=== PATIENT | male | born 1935 | race Caucasian/White ===

== ENCOUNTER 2017-12-12 03:41 | Inpatient (IN) | payer MEDICARE, BC ==
[~2017-12-12] VITALS: Ht 170.2 cm; Wt 86.0 kg
[2017-12-12] VITALS (24 sets, daily range): BP systolic 95–198; BP diastolic 38–114; PULSE 62–97; RESP 9–23; TEMP 97.8–99.3; O2SAT 96–100
[~2017-12-12 03:41] MED LIST: ASPI81 PO; AVOD0.5C PO; TAB-TAB PO; TAMS0.4C67 PO
[2017-12-12] MEDS ORDERED: LIPI80TA PO (03:54)
[2017-12-12] MEDS ORDERED: ASPI-516 CHEW (03:54)
[2017-12-12] MEDS ORDERED: COZA50TA PO (03:54)
[2017-12-12] MEDS ORDERED: SODIUM CHLORIDE 0.9% FLUSH 10 ML FLUSH IVF PRN (04:00)
[2017-12-12] MEDS ORDERED: ONDANSETRON ODT 4 MG TAB PO ONE (04:00)
[2017-12-12] MEDS ORDERED: ASPIRIN 81 MG CHEW TAB PO ONE (04:00)
[2017-12-12] MEDS ORDERED: NITROGLYCERIN 2% OINT 1 GM PACKET TOP ONE (04:00)
--- NOTE | 2017-12-12 04:07 | PD ---
HPI Chief Complaint: Chest Pain Time Seen by Provider: 03:43 Travel History International Travel<30 days: No Contact w/Intl Traveler<30days: No Traveled to known affect area: No History of Present Illness HPI The patient is a 82-year-old male who presents to the emergency department for chest pain. The patient states the alarm went off this morning, as he was planning to fly to [place] for a wed, when he developed chest pain the chest pain initially was substernal, radiated to the neck and jaw, and then radiated to the left aspect of the chest and left arm. The patient was diaphoretic according to the . The patient also felt like he had "indigestion" and was short of breath. The patient describes the pain as discomfort, has improved, but is still present over the substernal area. The patient did take a baby aspirin this morning with Advil prior to arrival. The patient does have a history of coronary artery disease with previous stent placement by his contractor general engineering, Dr. Emanuel. The patient does have a history of hypertension, hyperlipidemia, and coronary artery disease. He denies any history of tobacco use or diabetes. Symptoms are moderate. He denies any abdominal pain. The patient's primary physician is Dr. Kaleb Marion. [facility] Past Medical History Narrative Medical Hypertension, hyperlipidemia, coronary artery disease ?: Not Past Surgical History Narrative Surgical Stent placement, left inguinal herniorrhaphy Social History Tobacco Use: No Allergies-Medications (Allergen,Severity, Reaction): Coded Allergies: No Known Allergies (Verified Allergy, Unknown, 05/03/04) Reported Meds & Prescriptions Reported Meds & Active Scripts Active Reported Aspirin 81 Mg Chew 81 Mg CHEW DAILY Cozaar (Losartan Potassium) 50 Mg Tab 50 Mg PO DAILY Lipitor (Atorvastatin Calcium) 80 Mg Tab 80 Mg PO HS Review of Systems Except as stated in HPI: all other systems reviewed are Neg HENT: No: Lightheadedness Cardiovascular: Positive: Chest Pain or Discomfort, Diaphoresis Respiratory: Positive: Shortness of Breath Gastrointestinal: Positive: Nausea, No: Vomiting, Abdominal Pain Musculoskeletal: No: Edema Neurologic: No: Dizziness Physical Exam Narrative GENERAL: Awake, alert, pleasant 82-year-old male who appears his stated age and is in no acute respiratory distress. SKIN: Focused skin assessment warm/dry. Psoriatic plaques across the lower abdomen noted. HEAD: Atraumatic. Normocephalic. EYES: No injection or drainage. ENT: No nasal bleeding or discharge. Mucous membranes pink and moist. NECK: Trachea midline. No JVD. CARDIOVASCULAR: Regular rate and rhythm. No murmur appreciated. RESPIRATORY: No accessory muscle use. Clear to auscultation. Breath sounds equal bilaterally. GASTROINTESTINAL: Abdomen soft, non-tender, nondistended. No rebound tenderness. MUSCULOSKELETAL: No obvious deformities. No clubbing. No cyanosis. No edema. NEUROLOGICAL: Awake and alert. No obvious cranial nerve deficits. Motor grossly within normal limits. Normal speech. Nonfocal. PSYCHIATRIC: Appropriate mood and affect; insight and judgment normal. Data Data Last Documented VS Vital Signs Date Time Temp Pulse Resp B/P (MAP) Pulse Ox O2 Delivery O2 Flow Rate FiO2 12/12/17 04:26 66 18 176/96 (122) 100 Nasal Cannula 12/12/17 04:14 2.00 12/12/17 04:00 98.2 Orders Orders Electrocardiogram (12/12/17 03:59) Ckmb (Isoenzyme) Profile (12/12/17 03:59) Complete Blood Count With Diff (12/12/17 03:59) Comprehensive Metabolic Panel (12/12/17 03:59) Magnesium (Mg) (12/12/17 03:59) Prothrombin Time / Inr (Pt) (12/12/17 03:59) Act Partial Throm Time (Ptt) (12/12/17 03:59) Troponin I (12/12/17 03:59) Lipase (12/12/17 03:59) Ecg Monitoring (12/12/17 03:59) Bilateral Bp Monitoring (12/12/17 03:59) Iv Access Insert/Monitor (12/12/17 03:59) Oximetry (12/12/17 03:59) Oxygen Administration (12/12/17 03:59) Aspirin Chew (Aspirin Chew) (12/12/17 04:00) Nitroglycerin 2% Oint (Nitroglycerin 2% (12/12/17 04:00) Sodium Chloride 0.9% Flush (Ns Flush) (12/12/17 04:00) Ondansetron Odt (Zofran Odt) (12/12/17 04:00) Electrocardiogram (12/12/17 ) Chest, Single Ap (12/12/17 ) Heparin Inj (Heparin Inj) (12/12/17 05:00) Heparin Inj (Heparin Inj) (12/12/17 11:00) Heparin Inj (Heparin Inj) (12/12/17 11:00) Heparin-D5w 25,000 U/250 Ml (Heparin-D5w (12/12/17 05:00) Cbc No Diff, Includes Plts (12/15/17 06:00) Act Partial Throm Time (Ptt) (12/12/17 11:47) Occult Blood (Hemoccult) Stool (12/12/17 04:47) Place In Observation (12/12/17 ) Vital Signs (Adult) Q4H (12/12/17 04:46) Activity Oob With Assistance (12/12/17 04:46) Shop Manager / Telemetry .CONTINUOUS (12/12/17 04:46) Sodium Chloride 0.9% Flush (Ns Flush) (12/12/17 05:00) Sodium Chloride 0.9% Flush (Ns Flush) (12/12/17 09:00) Acetaminophen (Tylenol) (12/12/17 05:00) Ondansetron Inj (Zofran Inj) (12/12/17 05:00) Electrocardiogram (12/12/17 04:46) Electrocardiogram (12/12/17 10:46) Naloxone Inj (Narcan Inj) (12/12/17 05:00) Magnesium Hydroxide Liq (Milk Of Magnesi (12/12/17 05:00) Sennosides (Senokot) (12/12/17 05:00) Bisacodyl Supp (Dulcolax Supp) (12/12/17 05:00) Lactulose Liq (Lactulose Liq) (12/12/17 05:00) Labs Laboratory Tests Test 12/12/17 04:00 White Blood Count 9.8 TH/MM3 Red Blood Count 4.35 MIL/MM3 Hemoglobin 13.7 GM/DL Hematocrit 41.0 % Mean Corpuscular Volume 94.3 FL Mean Corpuscular Hemoglobin 31.6 PG Mean Corpuscular Hemoglobin Concent 33.5 % Red Cell Distribution Width 13.8 % Platelet Count 207 TH/MM3 Mean Platelet Volume 10.1 FL Neutrophils (%) (Auto) 46.7 % Lymphocytes (%) (Auto) 44.2 % Monocytes (%) (Auto) 6.2 % Eosinophils (%) (Auto) 2.5 % Basophils (%) (Auto) 0.4 % Neutrophils # (Auto) 4.7 TH/MM3 Lymphocytes # (Auto) 4.3 TH/MM3 Monocytes # (Auto) 0.6 TH/MM3 Eosinophils # (Auto) 0.2 TH/MM3 Basophils # (Auto) 0.0 TH/MM3 CBC Comment DIFF FINAL Differential Comment Prothrombin Time 11.1 SEC Prothromb Time International Ratio 1.1 RATIO Activated Partial Thromboplast Time 22.9 SEC Blood Urea Nitrogen 31 MG/DL Creatinine 1.50 MG/DL Random Glucose 150 MG/DL Total Protein 6.6 GM/DL Albumin 3.4 GM/DL Calcium Level 8.9 MG/DL Magnesium Level 2.1 MG/DL Alkaline Phosphatase 98 U/L Aspartate Amino Transf (AST/SGOT) 14 U/L Alanine Aminotransferase (ALT/SGPT) 20 U/L Total Bilirubin 0.4 MG/DL Sodium Level 142 MEQ/L Potassium Level 3.5 MEQ/L Chloride Level 110 MEQ/L Carbon Dioxide Level 23.4 MEQ/L Anion Gap 9 MEQ/L Estimat Glomerular Filtration Rate 45 ML/MIN Total Creatine Kinase 53 U/L Troponin I 0.04 NG/ML Lipase 189 U/L MDM Medical Decision Making Medical Screen Exam Complete: Yes Emergency Medical Condition: Yes Medical Record Reviewed: Yes Interpretation(s) EKG reveals sinus rhythm with frequent PVCs. Q waves noted in lead V1 and V2. Minimal ST elevation V2 and V3 that is less than 1 mm, does not meet criteria for STEMI. No visible reciprocal changes. EKG #2 reveals normal sinus rhythm with a rate of 62. Q-wave noted in lead V1 and V2. Minimal ST elevation V2 and V3, less than 1 mm, does not meet criteria for STEMI. No reciprocal changes noted. Laboratory Tests Test 12/12/17 04:00 White Blood Count 9.8 TH/MM3 Red Blood Count 4.35 MIL/MM3 Hemoglobin 13.7 GM/DL Hematocrit 41.0 % Mean Corpuscular Volume 94.3 FL Mean Corpuscular Hemoglobin 31.6 PG Mean Corpuscular Hemoglobin Concent 33.5 % Red Cell Distribution Width 13.8 % Platelet Count 207 TH/MM3 Mean Platelet Volume 10.1 FL Neutrophils (%) (Auto) 46.7 % Lymphocytes (%) (Auto) 44.2 % Monocytes (%) (Auto) 6.2 % Eosinophils (%) (Auto) 2.5 % Basophils (%) (Auto) 0.4 % Neutrophils # (Auto) 4.7 TH/MM3 Lymphocytes # (Auto) 4.3 TH/MM3 Monocytes # (Auto) 0.6 TH/MM3 Eosinophils # (Auto) 0.2 TH/MM3 Basophils # (Auto) 0.0 TH/MM3 CBC Comment DIFF FINAL Differential Comment Prothrombin Time 11.1 SEC Prothromb Time International Ratio 1.1 RATIO Activated Partial Thromboplast Time 22.9 SEC Blood Urea Nitrogen 31 MG/DL Creatinine 1.50 MG/DL Random Glucose 150 MG/DL Total Protein 6.6 GM/DL Albumin 3.4 GM/DL Calcium Level 8.9 MG/DL Magnesium Level 2.1 MG/DL Alkaline Phosphatase 98 U/L Aspartate Amino Transf (AST/SGOT) 14 U/L Alanine Aminotransferase (ALT/SGPT) 20 U/L Total Bilirubin 0.4 MG/DL Sodium Level 142 MEQ/L Potassium Level 3.5 MEQ/L Chloride Level 110 MEQ/L Carbon Dioxide Level 23.4 MEQ/L Anion Gap 9 MEQ/L Estimat Glomerular Filtration Rate 45 ML/MIN Total Creatine Kinase 53 U/L Troponin I 0.04 NG/ML Lipase 189 U/L Differential Diagnosis Differential diagnosis includes STEMI, acute coronary syndrome, aortic dissection, hypertensive urgency, hypertensive emergency, GERD, esophageal spasm. Narrative Course IV was established, labs are drawn and sent, and the patient was placed on cardiac telemetry monitoring and continuous pulse oximetry monitoring. EKG was ordered and interpreted. The patient was administered a baby aspirin, he also took 1 baby aspirin prior to arrival. Nitropaste was placed in the left chest wall. The patient's pain did return several minutes after arriving the emergency department, therefore, repeat EKG was ordered and interpreted. Chest x-ray was obtained. The patient was reevaluated at 4:30 AM, his chest pain had improved with nitro. The patient's initial troponin was 0.04. Creatinine was 1.5. The patient's contractor general engineering is Dr. Emanuel, therefore, a call was placed to his contractor general engineering. I discussed the patient with Dr. Emanuel who requested the patient be placed on heparin, n.p.o., and transferred to [facility] for possible cardiac catheterization later this afternoon. I discussed the plan of care with the patient who is comfortable with this plan of care. [facility] were p[facility] for admission. The patient continued to have some left-sided chest discomfort, therefore, was placed on a nitro drip at 5:30 AM. The patient continued to have pain despite nitro and morphine. Therefore, a third EKG was ordered at 6:08 AM. This EKG does reveal ST elevation greater than 1 mm in V3 and V4 where previous EKGs only had ST elevation in V3 of 1 mm. As the patient's pain was not improved with nitro and he started to have ST elevation in V4 I once again discussed the patient with his contractor general engineering. After discussion it was agreed a STEMI would be called and the patient would be sent emergently to [facility]. I discussed the findings with the patient. Critical Care Narrative Aggregate critical care time was 35 minutes. Time to perform other separately billable procedures was not included in the critical care time. My time did not include minutes spent treating any other patients simultaneously or on activities that did not directly contribute to the patient's treatment. The services I provided to this patient were to treat and/or prevent clinically significant deterioration that could result in: Ischemia, arrhythmia, STEMI, . I provided critical care services requiring my management, as noted below: Chart data review, documentation time, medication orders and management, vital sign assessments/reviewing monitor data, ordering and reviewing lab tests, ordering and interpreting/reviewing x-rays and diagnostic studies, care of the patient and discussion of the patient with the admitting physicians. Physician Communication Physician Communication [facility] were paged for admission. I discussed the patient with Dr. Lance who agrees with admission. Diagnosis Primary Impression: Unstable angina Additional Impressions: Chest pain Qualified Codes: R07.9 - Chest pain, unspecified ST elevation (STEMI) myocardial infarction Qualified Codes: I21.3 - ST elevation (STEMI) myocardial infarction of unspecified site Admitting Information Admitting Physician Requests: Admit Condition: Serious Richie Adan MD December 12, 2017 04:07
[2017-12-12 04:10] LABS: AUTOMATED NEUTROPHIL # 4.7 TH/MM3 (1.8-7.7); BASOPHIL % 0.4 % (0.0-2.0); EOSINOPHIL # 0.2 TH/MM3 (0-0.4); EOSINOPHIL % 2.5 % (0.0-4.0); HEMOGLOBIN 13.7 GM/DL (13.0-17.0); LYMPH % 44.2 % (9.0-44.0); LYMPHOCYTE # 4.3 TH/MM3 (1.0-4.8); MEAN CELL VOLUME 94.3 FL (80.0-100.0); MEAN CORPUSCULAR HEMOGLOBIN 31.6 PG (27.0-34.0); MEAN CORPUSCULAR HGB CONC 33.5 % (32.0-36.0); MEAN PLATELET VOLUME 10.1 FL (7.0-11.0); MONO % 6.2 % (0.0-8.0); MONOCYTE # 0.6 TH/MM3 (0-0.9); NEUT % 46.7 % (16.0-70.0); PLATELET COUNT 207 TH/MM3 (150-450); RED BLOOD COUNT 4.35 MIL/MM3 (4.50-5.90); RED CELL DISTRIBUTION WIDTH 13.8 % (11.6-17.2); WHITE BLOOD COUNT 9.8 TH/MM3 (4.0-11.0)
[2017-12-12 04:18] LABS: CHLORIDE 110 MEQ/L (98-107); SODIUM (NA) 142 MEQ/L (136-145)
[2017-12-12 04:21] LABS: ALBUMIN 3.4 GM/DL (3.4-5.0); BICARBONATE 23.4 MEQ/L (21.0-32.0); CALCIUM 8.9 MG/DL (8.5-10.1); GLUCOSE,RANDOM 150 MG/DL (74-106); INTERNATIONAL NORMALIZED RATIO 1.1 RATIO; MAGNESIUM 2.1 MG/DL (1.5-2.5); PROTHROMBIN TIME - PATIENT 11.1 SEC (9.8-11.6)
[2017-12-12 04:22] LABS: BLOOD UREA NITROGEN 31 MG/DL (7-18)
[2017-12-12 04:24] LABS: ALT (GPT) 20 U/L (12-78); AST (GOT) 14 U/L (15-37); GLOMERULAR FILTRATION RATE 45 ML/MIN (>89)
[2017-12-12 04:26] LABS: TOTAL BILIRUBIN ADULT 0.4 MG/DL (0.2-1.0); TOTAL PROTEIN 6.6 GM/DL (6.4-8.2)
[2017-12-12 04:27] LABS: ALKALINE PHOSPHATASE 98 U/L (45-117)
[2017-12-12 04:30] LABS: TROPONIN I 0.04 NG/ML (0.02-0.05)
[2017-12-12] MEDS ORDERED: IOHEXOL 350 MG/ML 50 ML BTL (for Cath Lab) OTHER ONE (04:49)
[2017-12-12] MEDS ORDERED: IOHEXOL 350 MG/ML 100 ML BTL (for Cath Lab) OTHER ONE (04:49)
[2017-12-12] MEDS ORDERED: SODIUM CHLORIDE 0.9% FLUSH 10 ML FLUSH IV FLUSH PRN ×3 (05:00→13:00)
[2017-12-12] MEDS ORDERED: ONDANSETRON ODT 4 MG TAB PO PRN (05:00)
[2017-12-12] MEDS ORDERED: ACETAMINOPHEN 325 MG TAB PO PRN ×2 (05:00→13:00)
[2017-12-12] MEDS ORDERED: NALOXONE HCL 0.4 MG/ML AMP IV PUSH PRN (05:00)
[2017-12-12] MEDS ORDERED: LACTULOSE SYRUP 20 GM/30 ML CUP PO PRN (05:00)
[2017-12-12] MEDS ORDERED: BISACODYL 10 MG SUPP RECTAL PRN (05:00)
[2017-12-12] MEDS ORDERED: SENNOSIDES 8.6 MG TAB PO PRN (05:00)
[2017-12-12] MEDS ORDERED: ONDANSETRON HCL 4 MG/2 ML VIAL IVP PRN (05:00)
[2017-12-12] MEDS ORDERED: HEPARIN-D5W 25,000 U/250 ML 250 ML IV PRN (05:00)
[2017-12-12] MEDS ORDERED: MAGNESIUM HYDROXIDE SUSP 30 ML CUP PO PRN (05:00)
[2017-12-12] MEDS ORDERED: HEPARIN SODIUM - IV 10,000 UNITS/10 ML VIAL IV ONE (05:00)
[2017-12-12] MEDS ORDERED: NITROGLYCERIN-D5W 50 MG/250 ML 250 ML IV PRN (05:30)
--- NOTE | 2017-12-12 05:36 | RADRPT ---
EXAM DATE/TIME: 12/12/2017 04:31 [facility] COMPARISON: No previous studies available for comparison. INDICATIONS : Substernal chest pain radiating to the left arm. MEDICAL HISTORY : Hypertension. Coronary artery disease. SURGICAL HISTORY : Coronary artery stent. ENCOUNTER: Initial ACUITY: 1 day PAIN SCORE: 4/10 LOCATION: chest substernal. FINDINGS: A single view of the chest demonstrates the lungs to be symmetrically aerated without evidence of mas s, infiltrate or effusion. The heart size is mildly prominent with no definite pulmonary edema. Mild atherosclerotic changes present in the aorta. Osseous structures are intact. CONCLUSION: Mild cardiomegaly. Roman Rodriguez MD on December 12, 2017 at 5:33 Board Certified Radiologist. This report was verified electronically.
[2017-12-12] MEDS ORDERED: MORPHINE SULFATE 2 MG/ML SYRINGE IV PUSH ONE (06:00)
[2017-12-12] MEDS ORDERED: MIDAZOLAM HCL 2 MG/2 ML VIAL ONE ×4 (06:35→13:39)
[2017-12-12] MEDS ORDERED: HEPARIN SODIUM - IV 10,000 UNITS/10 ML VIAL ONE ×2 (06:42→09:26)
[2017-12-12] MEDS ORDERED: HEPARIN-NS/PF INJ 500 ML ONE (08:16)
[2017-12-12] MEDS ORDERED: methylPREDNISolone SOD SUCC 125 MG/2 ML VIAL ONE ×2 (08:17→08:54)
[2017-12-12] MEDS ORDERED: ceFAZolin 2 GM PREMIX 50 ML ONE ×2 (08:17→08:54)
[2017-12-12] MEDS ORDERED: VANCOMYCIN HCL 1000 MG VIAL ONE ×2 (08:17→08:54)
[2017-12-12] MEDS ORDERED: HEPARIN SODIUM - SQ 10,000 UNITS/ML VIAL ONE ×3 (08:17→08:54)
[2017-12-12] MEDS ORDERED: CHLORHEXIDINE GLUCONATE 4% SOLN 120 ML BTL TOPICAL SCH (08:30)
[2017-12-12] MEDS ORDERED: PAPAVERINE INJ 60 MG, NITROGLYCERIN INJ 100 MCG, DILTIAZEM INJ 100 MG in SODIUM CHLORID... IRRIGATION SCH (08:30)
[2017-12-12] MEDS ORDERED: INSULIN REGULAR (IV INFUSION) 100 UNITS in SODIUM CHLORIDE 0.9% INJ 99 ML IV PRN ×2 (08:30→13:00)
[2017-12-12] MEDS ORDERED: METOPROLOL TARTRATE 25 MG TAB PO SCH (08:30)
[2017-12-12] MEDS ORDERED: CEFAZOLIN INJ 500 MG in SODIUM CHLORIDE 0.9% IRR BTL 500 ML IRRIGATION SCH (08:30)
[2017-12-12] MEDS ORDERED: DEXTROSE 50% IN WATER 50 ML VIAL(D50) IV PUSH PRN ×2 (08:30→13:00)
[2017-12-12] MEDS ORDERED: ceFAZolin 2 GM PREMIX 50 ML IV SCH (08:30)
--- NOTE | 2017-12-12 08:32 | PD.CONS ---
History of Present Illness Service CT Surgery Consult Requested By Dr. Emanuel Reason for Consult STEMI with refractory chest pain and acute systolic and diastolic heart failure Primary Care Physician Luis F Marion MD Diagnoses: (1) Combined systolic and diastolic congestive heart failure, NYHA class 4 (2) Chest pain (3) ST elevation (STEMI) myocardial infarction (4) Unstable angina History of Present Illness 82y/o male with known h/o CAD s/p stent placement to RCA in the past presents with chest pain since ~6AM. [place] the [place] when he experienced acute onset of chest pain radiating to the jaw. He went to the [facility] and was found to have ST elevation in V leads. A STEMI alert was called and he waas transferred to the [facility] for emergency left heart cath. This shows chronic LAD occlusion with collaterals from a diagonal with critical subtotal occlusion. His EF was 60% recently and is now ~20-25% with fairly global hypo/ akinesis. He continues to have chest pain and Dr. Emanuel could not safely cross lesion for PCI. Plan emergent CABG. Review of Systems ROS Limitations: Clinical Condition Constitutional: COMPLAINS OF: Diaphoretic episodes, DENIES: Fatigue, Fever, Weight gain, Weight loss, Chills, Dizziness, Change in appetite, Night Sweats Endocrine: DENIES: Heat/cold intolerance, Polydipsia, Polyuria, Polyphagia Eyes: DENIES: Blurred vision, Diplopia, Eye inflammation, Eye pain, Vision loss , Photosensitivity, Double Vision Ears, nose, mouth, throat: DENIES: Tinnitus, Hearing loss, Vertigo, Nasal discharge, Oral lesions, Throat pain, Hoarseness, Ear Pain, Running Nose, Epistaxis, Sinus Pain, Toothache, Odynophagia Respiratory: DENIES: Apneas, Cough, Snoring, Wheezing, Hemoptysis, Sputum production, Shortness of breath Cardiovascular: COMPLAINS OF: Chest pain, DENIES: Palpitations, Syncope, Dyspnea on Exertion, PND, Lower Extremity Edema, Orthopnea, Claudication Gastrointestinal: DENIES: Abdominal pain, Black stools, Bloody stools, Constipation, Diarrhea, Nausea, Vomiting, Difficulty Swallowing, Anorexia Musculoskeletal: DENIES: Joint pain, Muscle aches, Stiffness, Joint Swelling, Back pain, Neck pain Integumentary: DENIES: Abnormal pigmentation, Nail changes, Pruritus, Rash Hematologic/lymphatic: DENIES: Bruising, Lymphadenopathy Immunologic/allergic: DENIES: Eczema, Urticaria Neurologic: DENIES: Abnormal gait, Headache, Localized weakness, Paresthesias, Seizures, Speech Problems, Tremor, Poor Balance Psychiatric: DENIES: Anxiety, Confusion, Mood changes, Depression, Hallucinations, Agitation, Suicidal Ideation, Homicidal Ideation, Delusions Past Family Social History Allergies: Coded Allergies: No Known Allergies (Verified Allergy, Unknown, 05/03/04) Past Medical History Hypertension, hyperlipidemia, coronary artery disease Surgical Hx Stent placement, left inguinal herniorrhaphy Active Ordered Medications Current Medications Medications (Trade) Dose Ordered Sig/Poly Route Start Time Stop Time Status Last Admin (Heparin Inj) 5,000 units UNSCH PRN IV 12/12/17 11:00 (Heparin Inj) 2,500 units UNSCH PRN IV 12/12/17 11:00 Heparin Sodium/ Dextrose 250 ml @ 10 mls/hr TITRATE PRN IV 12/12/17 05:00 12/12/17 05:17 (NS Flush) 2 ml UNSCH PRN IV FLUSH 12/12/17 05:00 (NS Flush) 2 ml BID IV FLUSH 12/12/17 09:00 (Tylenol) 650 mg Q4H PRN PO 12/12/17 05:00 (Narcan Inj) 0.4 mg UNSCH PRN IV PUSH 12/12/17 05:00 (Milk Of Magnesia Liq) 30 ml Q12H PRN PO 12/12/17 05:00 (Senokot) 17.2 mg Q12H PRN PO 12/12/17 05:00 (Dulcolax Supp) 10 mg DAILY PRN RECTAL 12/12/17 05:00 (Lactulose Liq) 30 ml DAILY PRN PO 12/12/17 05:00 (Zofran Odt) 4 mg Q6H PRN PO 12/12/17 05:00 Nitroglycerin/ Dextrose 250 ml @ 1.5 mls/hr TITRATE PRN IV 12/12/17 05:30 12/12/17 05:43 Family History Not obtainable Social History Reportedly negative for tobacco or ETOH abuse Physical Exam Vital Signs Vital Signs Date Time Temp Pulse Resp B/P (MAP) Pulse Ox O2 Delivery O2 Flow Rate FiO2 12/12/17 06:35 70 18 169/89 (115) 100 12/12/17 06:30 70 20 166/94 (118) 100 Nasal Cannula 2.00 12/12/17 06:20 70 20 169/88 (115) 100 12/12/17 06:13 100 3.00 12/12/17 06:13 100 Nasal Cannula 3.00 12/12/17 05:54 65 20 184/92 (122) 12/12/17 05:46 69 18 173/85 (114) 100 Nasal Cannula 2.00 12/12/17 05:43 61 173/85 12/12/17 04:26 66 18 176/96 (122) 100 Nasal Cannula 12/12/17 04:14 62 184/96 (125) Nasal Cannula 2.00 12/12/17 04:00 98.2 70 20 178/96 (123) 100 Nasal Cannula 2.00 12/12/17 03:50 22 100 Nasal Cannula 2.00 12/12/17 03:50 100 Nasal Cannula 2.00 12/12/17 03:50 97 22 198/105 (136) 100 Room Air 183/114 (137) 12/12/17 03:45 98.2 67 22 198/105 (136) 99 Physical Exam GENERAL: This is a well-nourished, well-developed patient, in moderate distress. SKIN: No rashes, ecchymoses or lesions. Cool and dry. HEAD: Atraumatic. Normocephalic. No temporal or scalp tenderness. EYES: Pupils equal round and reactive. Extraocular motions intact. No scleral icterus. No injection or drainage. ENT: Nose without bleeding, purulent drainage or septal hematoma. Throat without erythema, tonsillar hypertrophy or exudate. Uvula midline. Airway patent. NECK: Trachea midline. No JVD or lymphadenopathy. Supple, nontender, no meningeal signs. CARDIOVASCULAR: Regular rate and rhythm without murmurs, gallops, or rubs. RESPIRATORY: Clear to auscultation. Breath sounds equal bilaterally. No wheezes , rales, or rhonchi. GASTROINTESTINAL: Abdomen soft, non-tender, nondistended. No hepato-splenomegaly , or palpable masses. No guarding. MUSCULOSKELETAL: Extremities without clubbing, cyanosis, or edema. No joint tenderness, effusion, or edema noted. No calf tenderness. Negative Homans sign bilaterally. NEUROLOGICAL: Awake and alert. Cranial nerves II through XII intact. Motor and sensory grossly within normal limits. Five out of 5 muscle strength in all muscle groups. Normal speech. Laboratory Laboratory Tests Test 12/12/17 04:00 White Blood Count 9.8 Red Blood Count 4.35 Hemoglobin 13.7 Hematocrit 41.0 Mean Corpuscular Volume 94.3 Mean Corpuscular Hemoglobin 31.6 Mean Corpuscular Hemoglobin Concent 33.5 Red Cell Distribution Width 13.8 Platelet Count 207 Mean Platelet Volume 10.1 Neutrophils (%) (Auto) 46.7 Lymphocytes (%) (Auto) 44.2 Monocytes (%) (Auto) 6.2 Eosinophils (%) (Auto) 2.5 Basophils (%) (Auto) 0.4 Neutrophils # (Auto) 4.7 Lymphocytes # (Auto) 4.3 Monocytes # (Auto) 0.6 Eosinophils # (Auto) 0.2 Basophils # (Auto) 0.0 CBC Comment DIFF FINAL Differential Comment Prothrombin Time 11.1 Prothromb Time International Ratio 1.1 Activated Partial Thromboplast Time 22.9 Blood Urea Nitrogen 31 Creatinine 1.50 Random Glucose 150 Total Protein 6.6 Albumin 3.4 Calcium Level 8.9 Magnesium Level 2.1 Alkaline Phosphatase 98 Aspartate Amino Transf (AST/SGOT) 14 Alanine Aminotransferase (ALT/SGPT) 20 Total Bilirubin 0.4 Sodium Level 142 Potassium Level 3.5 Chloride Level 110 Carbon Dioxide Level 23.4 Anion Gap 9 Estimat Glomerular Filtration Rate 45 Total Creatine Kinase 53 Troponin I 0.04 Lipase 189 Result Diagram: 12/12/17 0400 12/12/17 0400 Imaging Last Impressions Chest X-Ray 12/12/17 0000 Signed Impressions: Service Date/Time: Tuesday, December 12, 2017 04:31 - CONCLUSION: Mild cardiomegaly. Roman Rodriguez MD Course The patient will have an IABP placed by Dr. Emanuel in the [facility] and emergency CABG is planned. Assessment and Plan Problem List: (1) ST elevation (STEMI) myocardial infarction ICD Codes: I21.3 - ST elevation (STEMI) myocardial infarction of unspecified site Status: Acute (2) Unstable angina ICD Codes: I20.0 - Unstable angina Status: Acute (3) Combined systolic and diastolic congestive heart failure, NYHA class 4 ICD Codes: I50.40 - Unspecified combined systolic (congestive) and diastolic ( congestive) heart failure Assessment and Plan 82y/o male presents with STEMI and acute CHF. The lesion in the diagonal could not be crossed and the patient continues to have chest pain. Risk of CABG is as follow: Risk Model and Variables - STS Adult Cardiac Surgery Database Version 2.81 RISK SCORES About the STS Risk Calculator Procedure: CAB Only Risk of Mortality: 8.972% Morbidity or Mortality: 61.404% Long Length of Stay: 22.585% Short Length of Stay: 8.767% Permanent Stroke: 1.356% Prolonged Ventilation: 50.402% DSW Infection: 0.79% Renal Failure: 19.831% Reoperation: 17.585% Problem Qualifiers (1) Combined systolic and diastolic congestive heart failure, NYHA class 4: Qualified Codes: I50.41 - Acute combined systolic (congestive) and diastolic ( congestive) heart failure (2) Chest pain: Qualified Codes: R07.9 - Chest pain, unspecified (3) ST elevation (STEMI) myocardial infarction: Qualified Codes: I21.3 - ST elevation (STEMI) myocardial infarction of unspecified site Nina Melo MD December 12, 2017 08:32
[2017-12-12] MEDS ORDERED: PAPAVERINE INJ 60 MG, NITROGLYCERIN INJ 100 MCG, VERAPAMIL INJ 100 MG in SODIUM CHLORID... IRRIGATION SCH ×2 (08:45→09:00)
[2017-12-12] MEDS ORDERED: PILL SPLITTER OTHER PRN (08:45)
--- NOTE | 2017-12-12 08:51 | CATHPROC ---
[employer] HIS Report Study Information Study Number Admission Scheduled Start Study Start [id number] Dec 12 2017 4:48AM 12/12/2017 Dec 12 2017 6:34AM [facility] Cardiac Catheterization Admit Source Facility Department Emergency department [facility] - Curriculum Assistant Principal Physician and Clinical Staff Initial James Gomez Scheduling Administrator Melo Barajas RN Scheduling Administrator Isiah MURDOCK, Kingsley Recorder Antonella Cowart,RT(R) Scrub Iza Johnson,BRANDON TECH2 Procedures Performed Procedure Location (Site) Vessel Name Angiogram LV LV Ventricle Coronary Angiograms LCA Left Coronary Coronary Angiograms RCA Right Coronary IABP Fem Art (right) Femoral Art PTCA DIAG Ost Left Coronary PTCA ADD ON'S Wire insertion Fem Art (right) Femoral Art Equipment Time Head Strength And Conditioning Coach Description Size Mfg Part Number Used/Scraped WIRE, BALANCE MIDDLEWEIGHT [id number] 07:42 [employer] 190CM Used 190CM *[id number] TRANSDUCER, TRUWAVE [id number] 06:41 CHAIREZ MCLAUGHLIN * Used W/STOCKCOCK *[id number] BALLOON, 2.0 6MM FLEXTOME 07:54 BOSTON SCIENTIFIC 2.0 6MM [id number] Used CUTTING [id number] *[id number] *[id number] BALLOON, FR8 50CC SENSATION [id number] 08:19 MAQUET FR 8 50CC Used PLUS 01U *[id number] 06:41 MEDLINE IND[employer]RIES PACK, CCL CUSTOM * Used *[id number] 06:41 Knozen PACER PEN, SKIN DUAL W/ RULER * Used *[id number] 06:47 MEDTRONIC AR MOD DXTERITY CATHETER FR 5 [id number] Used [id number] 07:46 MEDTRONIC BALLOON, 2.0 X 12MM EUPHORA 12MM Used *[id number] 07:58 [employer] BALLOON, 2.0 X 6MM EUPHORA 6MM Used *[id number] 06:47 MEDTRONIC JL 4.0 DXTERITY CATHETER FR 5 Used *[id number] 07:39 Lo[employer]ronix MEDICAL 30 TAMIKA INDEFLATOR Used *[id number] 07:38 [employer] MEDICAL SHEATH, FR6.5 PRELUDE 11CM FR 6.5 038ACT Used *[id number] [id number] 06:41 [employer] MEDICAL WIRE, 3MMJ .035 180CM 180CM Used *[id number] PROBE COVER, STERILE [id number] 06:41 [employer] MEDICAL * Used ULTRASOUND W/ GEL *[id number] 06:41 NAMIC MANIFOLD, 4 PORT * Used *[id number] [id number] 06:48 NAMIC TUBING, HIGH PRESSURE 48" 48" Used *[id number] [id number] 06:41 NAMIC TUBING, HIGH PRESSURE 48" 48" Used *[id number] 06:41 NYCOMED OMNIPAQUE, 350 MG, 150ML 150ML [id number] Used 07:39 NYCOMED OMNIPAQUE, 350 MG, 150ML 150ML [id number] Used [id number] 06:41 [facility] BLANKET,WARM AIR CCL * Used *[id number] 06:41 [employer] MEDICAL SHEATH, FR5 TERUMO (10CM) FR 5 Used *[id number] Equipment Model, Serial, Lot Number and Expiration Data Description Model Number Serial Number Lot Number Expiration Date AR MOD DXTERITY CATHETER [id number] 09-04-2020 BALLOON, 2.0 X 12MM EUPHORA [id number] 06-24-2019 BALLOON, 2.0 6MM FLEXTOME [id number] 07-29-2019 CUTTING JL 4.0 DXTERITY CATHETER [id number] 04-17-2020 History: Allergies Allergy Reaction No Known Allergies History: Risk Factors Family History of Hypertension Dyslipidemia Previous OK Previous Heart Failure Premature CAD Yes Yes No No No Prior Valve Prior PCI Prior PCIDate Prior CABG Surgery No Yes 07/24/2010 No Cerebrovascular Peripheral Artery Chronic Lung On Dialysis Diabetes Disease Disease Disease No No No No No History: Symptoms/Diagnosis Selection Items Chest pain History: CV Disease Selection Items Known CAD History: Stress Tests Stress or Imaging Studies Performed No History: Other Disease Selection Items HTN History: Other Current Smoker No Labs Hgb (g/dl) Hct (%) RBC (MIL/MM3) WBC (l/cumm) Platelets (thousands) 11.60-17.00 35.00-51.00 4.00-5.90 4.00-11.00 150.00-450.00 13.7 41 4.3 9.8 207 Glucose (mg/dl) BUN (mg/dl) Creatinine (mg/dl) BUN:Creatinine (1:x) 74.00-106.00 7.00-18.00 0.50-1.30 10.00-20.00 150 31 1.5 20.7 Na (meq/l) K (meq/l) Cl (meq/l) CO2 (mmol/L) Ca (mg/dl) 136.00-145.00 3.50-5.10 98.00-107.00 21.00-32.00 8.50-10.10 142 3.5 110 23.4 8.9 PT (sec) PTT (sec) INR (PTT:PT) 9.80-11.60 24.30-30.10 0.90-1.10 11.1 22.9 1.1 Troponin I (ng/ml) CPK (u/l) CPK-MB (ng/ML) 0.02-0.05 26.00-308.00 0.50-3.60 0.04 53 Not Drawn Medication Medication Total Dose (Bolus/Oral) Medication Total Dosage/Unit 1% XYLOCAINE 20 mL FENTANYL 200 mcg HEPARIN 5000 units NTG (IC) 600 mcg VERSED 2.5 mg Medications (Bolus/Oral) Medication Time Given Dosage/Unit Administered By Reason VERSED 12/12/2017 7:17:20 AM 1 mg Karl, Melo 1 mg VERSED given in lab by Melo Baraajs RN via Peripheral IV. FENTANYL 12/12/2017 7:18:11 AM 50 mcg Karl, Melo 50 mcg FENTANYL given in lab by Melo Barajas RN via Peripheral IV. VERSED 12/12/2017 7:24:16 AM 1 mg Karl, Melo 1 mg VERSED given in lab by Melo Barajas RN via Peripheral IV. FENTANYL 12/12/2017 7:25:00 AM 25 mcg Karl, Melo 25 mcg FENTANYL given in lab by Melo Barajas RN via Peripheral IV. 1% XYLOCAINE 12/12/2017 7:29:45 AM 20 mL James Emanuel 20 mL 1% XYLOCAINE given in lab by James Emanuel in Right Groin via Subcutaneous. HEPARIN 12/12/2017 7:37:22 AM 5000 units Karl, Melo 5000 units HEPARIN given in lab by Melo Barajas RN in Right Antecubital via Peripheral IV. NTG (IC) 12/12/2017 7:42:29 AM 200 mcg Sayre, Iza 200 mcg NTG (IC) given in lab by Iza Johnson RCIS TECH2 via Intra-coronary. FENTANYL 12/12/2017 7:49:10 AM 25 mcg Melo Barajas 25 mcg FENTANYL given in lab by Melo Barajas RN via Peripheral IV. NTG (IC) 12/12/2017 7:57:39 AM 200 mcg Denise Johnsona 200 mcg NTG (IC) given in lab by Iza Johnson RCIS TECH2 via Intra-coronary. FENTANYL 12/12/2017 7:59:42 AM 50 mcg Melo Barajas 50 mcg FENTANYL given in lab by Melo Barajas RN via Peripheral IV. NTG (IC) 12/12/2017 8:03:25 AM 200 mcg Denise Johnsona 200 mcg NTG (IC) given in lab by Iza Johnson RCIS TECH2 via Intra-coronary. VERSED 12/12/2017 8:15:48 AM 0.5 mg Kingsley Yin RN 0.5 mg VERSED given in lab by Kinglsey Yin RN via Peripheral IV. FENTANYL 12/12/2017 8:16:05 AM 50 mcg Kingsley Yin RN 50 mcg FENTANYL given in lab by Kingsley Yin RN via Peripheral IV. Medication (Drip) Medication Time Given Dosage/Unit Concentration/Unit Diluent (ml) Solutio n HEPARIN DRIP 12/12/2017 7:04:31 AM 100 units/hr 28466 units 250 NaCl .9 Patient arrived on 100 units/hr HEPARIN DRIP in Left Antecubital via Peripheral IV. Pump/Drip Flow = 1 ml/hr using [place] .[place] [address] units in 250 ml. IV Bolus 12/12/2017 7:23:04 AM 500 mL (Bolus) NaCl .9 500 mL (Bolus) IV Bolus given in lab by Melo Barajas RN via Peripheral IV. Using NaCl .9. IV Solutions 12/12/2017 7:07:50 AM 0 mL (IV) 1000 NaCl .9 Patient arrived on IV Solutions in Right Antecubital via Peripheral IV. Pump/Drip Flow = 20 ml/hr usi ng NaCl .9. NITROGLYCERIN DRIP 12/12/2017 7:04:10 AM 10 mcg/min 50 mg 250 NaCl .9 Patient arrived on 10 mcg/min NITROGLYCERIN DRIP in Left Antecubital via Peripheral IV. Pump/Drip Bacilio w = 3 ml/hr using NaCl .9 with a concentration of 50 mg in 250 ml. Initial Case Assessment Cardiovascular HR Rhythm NIBP Chest Pain 76 reg 152/89 5 Edema Present Skin color Skin None Normal Warm Circulatory - Right Pulses Dorsalis Pedis Femoral 1 2 Scale (0,1,2,3,4,d) Circulatory - Left Pulses Dorsalis Pedis Femoral 1 1 Scale (0,1,2,3,4,d) Circulatory - Lower Extremities Color Lower Right Color Lower Left Normal Normal Neurological State Oriented to time-place- Alert Moves all extremities person Respiration - General Respiration Rate SpO2 (%) O2 (lpm) (B/min) 8 97 3 Final Case Assessment Cardiovascular HR Rhythm NIBP Chest Pain 65 reg 157/63 5 Edema Present Skin color Skin None Normal Warm Circulatory - Right Pulses Dorsalis Pedis Femoral 1 2 Scale (0,1,2,3,4,d) Circulatory - Left Pulses Dorsalis Pedis Femoral 1 2 Scale (0,1,2,3,4,d) Neurological State Oriented to time-place- Alert Moves all extremities person Respiration - General Respiration Rate SpO2 (%) O2 (lpm) (B/min) 17 98 3 Chronological Log Time Study Chronological Log 6:40:38 Emergency Room notified that Curriculum Assistant Principal is ready. 7:02:42 Patient arrived via evac 7:02:58 Patient Name, D.O.B, / Armband Verified By R.N. 7:02:59 Consent signed by the physician and the patient and verified by the Curriculum Assistant Principal staff. 7:03:00 Pre-op and post- op instructions given; patient acknowledges understanding of instructions. 7:03:01 Verbal Stimulation=2 Physical Stimulation=2 Airway=2 Respiration=2 TOTAL=8. (0=absent, 1=li mited, 2=present) 7:03:21 Patient has been NPO for More than 6Hrs. 7:03:24 Skin Breakdown-none 7:03:38 A # 20 IV was noted in the Antecubital (left). Grade = 0 Patient arrived on 10 mcg/min NITROGLYCERIN DRIP in Left Antecubital via Peripheral IV. Pump/Dr ip Flow = 3 ml/hr 7:04:10 using NaCl .9 with a concentration of 50 mg in 250 ml. Patient arrived on 100 units/hr HEPARIN DRIP in Left Antecubital via Peripheral IV. Pump/Drip F low = 1 ml/hr using 7:04:31 [place] [address] units in 250 ml. 7:05:10 heparin discontinued 7:07:45 A # 20 IV was noted in the Antecubital (right). Grade = 0 7:07:50 Patient arrived on IV Solutions in Right Antecubital via Peripheral IV. Pump/Drip Flow = 20 ml/hr using NaCl .9. 7:08:16 History and physical on the chart or being dictated. Assessment: Initial Case, HR=76 BPM, Rhythm=reg, ALVF=970/89 mmhg, Chest Pain=5, Edema=None, Col or=Normal, Skin = Warm Right Pulses: Manfred Ped=1, Femoral=2 Left Pulses: Manfred Ped=1, Femoral=1 7:08:18 Lower Right Extremities: Color=Normal Lower Left Extremities: Color=Normal Neurological: State=Alert, Ox3, LANE Respiration: Resp=8 B/min, SpO2=97 %, O2=3 lpm Vitals capture started with the following parameters, Patient=Adult, Interval=5 min, Initial Pre qfvvx=749 mmHg, 7:09:05 Deflation Rate=5 mmHg, Cuff placed on Left Arm 7:09:45 HR=57 bpm, VDGZ=844/89 mmhg, SpO2=99.0 %, Pain=5, Walter=10, Ramirez=2 7:11:27 Reference ECG taken 7:11:37 Bilateral groins prepped with 2% chlorhexidine, and draped after a 3 minute waiting time. 7:14:46 HR=57 bpm, WDPY=819/92 mmhg, SpO2=99.0 %, Resp=13 B/min, Pain=5, Walter=10, Ramirez=3 7:14:53 paged 7:14:59 MD responded 7:15:44 Pressure channel 1 zeroed. 7:17:20 1 mg VERSED given in lab by Melo Barajas, RN via Peripheral IV. 7:18:11 50 mcg FENTANYL given in lab by Melo Barajas RN via Peripheral IV. 7:19:45 HR=60 bpm, MYNN=693/92 mmhg, SpO2=98.0 %, Resp=12 B/min, Pain=5, Walter=10, Ramirez=2 7:21:02 MD arrived. 7:23:04 500 mL (Bolus) IV Bolus given in lab by Melo Barajas RN via Peripheral IV. Using NaCl .9. 7:24:16 1 mg VERSED given in lab by Melo Barajas RN via Peripheral IV. 7:24:50 HR=60 bpm, RBZI=028/82 mmhg, SpO2=96.0 %, Resp=5 B/min, Pain=5, Walter=10, Ramirez=2 7:25:00 25 mcg FENTANYL given in lab by Melo Barajas RN via Peripheral IV. 7:25:15 power injector loaded by rodolfo yin and verified by marion johnson Time Out. Correct patient, correct procedure, correct physician, labs, allergies, and equipment verified with laborer driver 7:28:29 team present. Fire risk assesment completed (see hard stop sheet for coding). Time Out Concu rred by MD and individual staff in procedure. o2 mask placed on pt 7:29:27 7:29:45 20 mL 1% XYLOCAINE given in lab by James Emanuel in Right Groin via Subcutaneous. 7:29:47 HR=61 bpm, NRYI=534/76 mmhg, SpO2=92.0 %, Resp=11 B/min, Pain=5, Walter=9, Ramirez=2 7:30:36 Access site was Right Femoral Artery with ultrasound device 7:30:56 A wire was inserted via Fem Art (right). 7:30:59 A SHEATH, FR5 TERUMO (10CM) FR 5 was advanced into the Fem Art (right) using the Percutaneou s technique. 7:31:18 Activated Clotting Time Drawn A JL 4.0 DXTERITY CATHETER FR 5 was advanced over a wire. OMNIPAQUE, 350 MG, 150ML 150ML was use d for 7:32:19 injections. 7:33:06 The LCA was injected and visualized at various angles. OMNIPAQUE, 350 MG, 150ML 150ML used. Recorded Pressure: Ao, HR=65, Condition=Condition 1 7:33:45 (Aorta) Ao 124/65/89 7:34:31 ACT (Normal Range 90-180) = 169 7:34:46 HR=63 bpm, QNAZ=606/80 mmhg, SpO2=99.0 %, Resp=15 B/min 7:35:27 Catheter was removed A AR MOD DXTERITY CATHETER FR 5 was advanced over a wire. OMNIPAQUE, 350 MG, 150ML 150ML was use d for 7:35:31 injections. 7:36:55 The RCA was injected and visualized at various angles. OMNIPAQUE, 350 MG, 150ML 150ML used. 7:37:22 5000 units HEPARIN given in lab by Melo Barajas RN in Right Antecubital via Peripheral IV. 7:38:02 Catheter was removed 7:38:33 OMNIPAQUE, 350 MG, 150ML 150ML and 30 TAMIKA INDEFLATOR added. A SHEATH, FR6.5 PRELUDE 11CM FR 6.5 was exchanged in the Fem Art (right). This was necessary in order to 7:38:45 accomodate a larger catheter. 7:39:47 HR=72 bpm, YHWF=952/84 mmhg, SpO2=99.0 %, Resp=16 B/min A XBLAD 3.5 GUIDE CATHETER FR 6 was advanced over a wire. OMNIPAQUE, 350 MG, 150ML 150ML was use d for 7:41:00 injections. 7:42:29 200 mcg NTG (IC) given in lab by Iza Johnson RCIS TECH2 via Intra-coronary. 7:44:18 Activated Clotting Time Drawn 7:44:28 A WIRE, BALANCE MIDDLEWEIGHT 190CM 190CM was inserted via Fem Art (right). 7:44:48 HR=73 bpm, KETL=048/84 mmhg, SpO2=98.0 %, Resp=15 B/min 7:45:02 Interventional wire has crossed the lesion A BALLOON, 2.0 X 12MM EUPHORA 12MM was inserted over WIRE, BALANCE MIDDLEWEIGHT 190CM 190CM via the 7:47:30 Fem Art (right). A BALLOON, 2.0 X 12MM EUPHORA 12MM over a WIRE, BALANCE MIDDLEWEIGHT 190CM 190CM in the DIAG Ost was 7:49:00 inflated using a 30 TAMIKA INDEFLATOR at 10 tamika for 12 sec. 7:49:10 25 mcg FENTANYL given in lab by Melo Barajas RN via Peripheral IV. 7:49:28 ACT (Normal Range 90-180) = 276 A BALLOON, 2.0 X 12MM EUPHORA 12MM over a WIRE, BALANCE MIDDLEWEIGHT 190CM 190CM in the DIAG Ost was 7:49:39 inflated using a 30 TAMIKA INDEFLATOR at 16 tamika for 30 sec. 7:49:51 HR=71 bpm, UAEQ=335/82 mmhg, ZkG4=428.0 %, Resp=13 B/min A BALLOON, 2.0 X 12MM EUPHORA 12MM over a WIRE, BALANCE MIDDLEWEIGHT 190CM 190CM in the DIAG Ost was 7:50:25 inflated using a 30 TAMIKA INDEFLATOR at 16 tamika for 30 sec. A BALLOON, 2.0 X 12MM EUPHORA 12MM over a WIRE, BALANCE MIDDLEWEIGHT 190CM 190CM in the DIAG Ost was 7:51:34 inflated using a 30 TAMIKA INDEFLATOR at 16 tamika for 30 sec. 7:52:17 Balloon Removed. Recorded Pressure: Ao, HR=66, Condition=Condition 1 7:52:37 (Aorta) Ao 162/81/113 A BALLOON, 2.0 6MM FLEXTOME CUTTING 2.0 6MM was inserted over WIRE, BALANCE MIDDLEWEIGHT 190CM 1 90CM 7:53:52 via the DIAG Ost. 7:55:35 HR=62 bpm, AWBA=340/89 mmhg, IkZ5=083.0 %, Resp=17 B/min, Pain=5, Walter=9, Ramirez=2 7:57:18 flextome Balloon Removed. 7:57:39 200 mcg NTG (IC) given in lab by Iza Johnson RCIS TECH2 via Intra-coronary. A BALLOON, 2.0 X 6MM EUPHORA 6MM was inserted over WIRE, BALANCE MIDDLEWEIGHT 190CM 190CM via th e 7:58:10 DIAG Ost. 7:59:42 50 mcg FENTANYL given in lab by Melo Barajas, RN via Peripheral IV. 7:59:51 HR=73 bpm, BHTN=547/91 mmhg, SpO2=99.0 %, Resp=9 B/min, Pain=5, Walter=9, Ramirez=3 8:02:56 Balloon Removed. 8:03:02 The LCA was injected and visualized at various angles. OMNIPAQUE, 350 MG, 150ML 150ML used. 8:03:25 200 mcg NTG (IC) given in lab by Iza Johnson RCIS TECH2 via Intra-coronary. 8:04:32 dr conway consulted 8:04:54 HR=66 bpm, LKHU=418/97 mmhg, UhV1=561.0 %, Resp=25 B/min, Pain=5, Walter=9, Ramirez=2 8:05:50 Wire removed 8:05:56 Catheter was removed A PIGTAIL ANG. INFINITI CATHETER FR 5 was advanced over a wire. OMNIPAQUE, 350 MG, 150ML 150ML w as used 8:06:03 for injections. Recorded Pressure: LV, HR=71, Condition=Condition 1 8:06:45 (Left Ventricle) LV 150/12/28 8:06:55 The LV was injected at 20 cc/sec for a total of 40. OMNIPAQUE, 350 MG, 150ML 150ML used. 8:07:22 dr conway arrived to view films with dr emanuel Recorded Pressure: LV, Ao, HR=69, Condition=Condition 1 8:08:14 (Left Ventricle) LV 155/15/33, (Aorta) Ao 154/78/110 8:08:32 Catheter was removed 8:09:49 HR=69 bpm, SJBI=145/96 mmhg, SpO2=99.0 %, Resp=18 B/min, Pain=5, Walter=10, Ramirez=2 8:14:52 HR=74 bpm, JTNY=306/89 mmhg, VgQ0=824.0 %, Resp=15 B/min, Pain=5, Walter=10, Ramirez=3 8:15:14 Sheath exchanged for intra-aortic balloon insertion. 8:15:48 0.5 mg VERSED given in lab by Kingsley Yin RN via Peripheral IV. 8:16:05 50 mcg FENTANYL given in lab by Kingsley Yin RN via Peripheral IV. An BALLOON, FR8 50CC SENSATION PLUS FR 8 50CC was advanced to the descending aorta. Proper plac ement was 8:18:45 confired under fluoroscopy and the balloon was sutured in place. Ratio = ~RATIO~. Augmented BP ~SYS~/~FAITH~ 8:19:54 HR=68 bpm, XOID=387/97 mmhg, QuQ4=981.0 %, Resp=12 B/min, Pain=5, Walter=10, Ramirez=2 8:24:01 Case End Assessment: Final Case, HR=65 BPM, Rhythm=reg, JUAG=845/63 mmhg, Chest Pain=5, Edema=None, [place] r=Normal, Skin = Warm Right Pulses: Manfred Ped=1, Femoral=2 8:24:03 Left Pulses: Manfred Ped=1, Femoral=2 Neurological: State=Alert, Ox3, LANE Respiration: Resp=17 B/min, SpO2=98 %, O2=3 lpm 8:25:01 HR=69 bpm, OTWE=437/63 mmhg, SpO2=99.0 %, Resp=12 B/min, Pain=5, Walter=10, Ramirez=2 8:26:49 Catheter(s) removed without difficulty 8:26:50 In the Fem Art (right) the sheath was sutured in place by Iza Johnson RCIS TECH2. balloon pump sheath 8:27:09 Sterile dressing applied to site 8:27:09 No case complications noted. 8:27:11 Cine recording checked. 8:30:43 HR=61 bpm, CVXL=535/72 mmhg, SpO2=97.0 %, Resp=14 B/min, Pain=5, Walter=10, Ramirez=2 8:34:44 HR=63 bpm, JGSU=451/99 mmhg, SpO2=96.0 %, Resp=15 B/min, Pain=0, Walter=10, Ramirez=2 8:40:00 HR=61 bpm, DDCX=359/57 mmhg, SpO2=97.0 %, Resp=23 B/min, Pain=5, Walter=10, Ramirez=2 8:45:47 [facility]vic[facility] notified of pts impending arrival End Study - Contrast Media Used In Study Contrast Total Opened (mL) Total Used (mL) Total Wasted (mL) Omnipaque 150 150 0 End Study - Maximum Contrast Load Max Contrast Load (mL) 276.7 End Study - Radiation Exposure Fluoro Time (minutes) 11.5 End Study - Patient Disposition Complications Transferred To No Critical Care Bed
[2017-12-12] MEDS ORDERED: SODIUM CHLORIDE 0.9% FLUSH 10 ML FLUSH IV FLUSH SCH ×2 (09:00)
--- NOTE | 2017-12-12 09:18 | MA ---
cc: Jaems Emanuel MD DATE: 12/12/2017 INDICATIONS: Myocardial infarction, coronary artery disease, history of RCA stenting, class IV angina. PROCEDURE PERFORMED: 1. Retrograde left heart catheterization with left ventriculography and selective coronary angiography. 2. Angioplasty of the first diagonal artery. 3. Moderate sedation. 4. Intraaortic balloon pump placement. ACCESS SITE: Right femoral artery. EQUIPMENT USED: A 5 Urdu pigtail catheter, JR4 and AR modified coronary artery catheters, XB 3.5 LAD guide, BMW wire, 2.0 x 12 mm balloon and 2.0 x 6 mm balloon for predilatation. AngioSculpt balloon could not be passed through the severely calcified lesion. MEDICATIONS: Versed IV, fentanyl IV, heparin IV, nitroglycerin IC. CONTRAST: Omnipaque 150 mL. COMPLICATIONS: None. ESTIMATED BLOOD LOSS: Less than 10 mL. METHOD OF HEMOSTASIS: Intraaortic balloon left in place. RESULTS: A. HEMODYNAMICS: Heart rate 65 beats per minute. Left end-diastolic pressure 18 mmHg. Left ventricle 155/18. Aorta 155/78/110. B. LEFT VENTRICULOGRAPHY: Ejection fraction 25% with severe anterior and apical hypokinesis, no mitral regurgitation. C. CORONARY ANGIOGRAPHY: The left main coronary artery is patent. The left anterior descending coronary artery is totally occluded in the proximal portion distally to the first diagonal branch. Distal vessel fills by a collateral from the first diagonal branch. D1 has 90% proximal stenosis with thrombus and heavy calcification. The left circumflex artery is patent. OM1 has 30% proximal stenosis. The right coronary artery is a dominant vessel which has a patent stent in the proximal portion. PLV patent. PD has 60 percent stenosis in the mid portion. Stenosis in the first diagonal artery was 15 mm long. Pre-AMA flow 2. Post-AMA flow 2 post-stenosis 80%. The proximal diagonal artery was heavily calcified and could not be dilated despite using multiple balloons 2.0 x 6 mm balloon could be removed with difficulty after the last inflation. There was a AMA 2 flow to the first diagonal artery at the end of the procedure. DIAGNOSES: 1. ST elevation myocardial infarction. 2. 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 3. Severe left ventricular dysfunction consistent with ischemic cardiomyopathy. 4. Attempted angioplasty of the first diagonal artery. 5. Intraaortic balloon pump placement. DISPOSITION: Mr. Perera was found to have a severe calcified stenosis in the first diagonal branch. The lesion could not be dilated despite multiple attempts due to severe calcification. Intraaortic balloon pump was placed and Dr. Melo was consulted for cardiothoracic surgery for emergent coronary bypass. MD RUTH Guadalupe/RALPH , 08:47 AM , 09:17 AM
[2017-12-12] MEDS ORDERED: ALBUMIN 25% INJ 50 ML IV ONE (09:25)
[2017-12-12] MEDS ORDERED: POTASSIUM CHLOR 40 MEQ PREMIX 200 ML ONE (09:25)
[2017-12-12] MEDS ORDERED: CARDIOPLEGIC IRR 2,000 ML ONE (09:25)
[2017-12-12] MEDS ORDERED: MANNITOL INJ 100 ML ONE (09:26)
[2017-12-12] MEDS ORDERED: CALCIUM CHLORIDE 10% SOLN 1 GRAM/10 ML SYR ONE (09:26)
[2017-12-12] MEDS ORDERED: SODIUM BICARBONATE 8.4% INJ 50 ML ONE (09:27)
[2017-12-12] MEDS ORDERED: HEPARIN SODIUM - IV 10,000 UNITS/10 ML VIAL IV PRN ×2 (11:00)
[2017-12-12] MEDS ORDERED: LACTATED RINGER'S 1000 ML INJ 500 ML IV PRN (12:56)
[2017-12-12] MEDS ORDERED: CALCIUM CHLORIDE 10% 1 GRAM/10 ML VIAL IV PUSH PRN (13:00)
[2017-12-12] MEDS ORDERED: POTASSIUM CHLOR 20 MEQ PREMIX 100 ML IV PRN ×3 (13:00)
[2017-12-12] MEDS ORDERED: hydrALAZINE HCL 20 MG/ML VIAL IV PUSH PRN (13:00)
[2017-12-12] MEDS ORDERED: METOPROLOL TARTRATE 5 MG/5 ML VIAL IV PUSH PRN (13:00)
[2017-12-12] MEDS ORDERED: RESP: ALBUTEROL 2.5 MG/IPRATROPIUM 0.5 MG NEB (PRN) NEB (13:00)
[2017-12-12] MEDS ORDERED: SODIUM BICARBONATE 8.4% SOLN 50 MEQ/50 ML VIAL IV PUSH PRN (13:00)
[2017-12-12] MEDS ORDERED: RESP: RACEPINEPHRINE 2.25% 0.5 ML NEB NEB PRN (13:00)
[2017-12-12] MEDS ORDERED: MAGNESIUM SULFATE INJ 2 GM in SODIUM CHLORIDE 0.9% INJ 100 ML IV PRN ×4 (13:00)
[2017-12-12] MEDS ORDERED: Post-op Orders (for Pharmacy) OTHER ONE (13:00)
[2017-12-12] MEDS ORDERED: POTASSIUM CHLORIDE 20 MEQ CONTROLLED RELEASE TAB PO PRN ×2 (13:00)
[2017-12-12] MEDS ORDERED: ACETAMINOPHEN 650 MG SUPP RECTAL PRN (13:00)
[2017-12-12] MEDS ORDERED: ALBUMIN 5% INJ 250 ML IV PRN (13:00)
[2017-12-12] MEDS ORDERED: CALCIUM CHLORIDE INJ 1 GM in SODIUM CHLORIDE 0.9% INJ 100 ML IV PRN (13:00)
--- NOTE | 2017-12-12 13:09 | PD.OP ---
cc: Nina Melo MD; James Emanuel MD Operative Report Date of Surgery: December 12, 2017 Preoperative Diagnosis: (1) ST elevation (STEMI) myocardial infarction (2) Unstable angina (3) Combined systolic and diastolic congestive heart failure, NYHA class 4 Postoperative Diagnosis: same Procedure: Emergency CABG x 2 COREY to LAD SVG to D1 EVH SUMMER Anesthesia: Dr. Day Surgeon: Nina Melo Quality Assurance Intern(s): Sita Rust, WOODY Operation and Findings: The risks, benefits, complications, treatment options, and expected outcomes were discussed with the patient. The possibilities of reaction to medication, pulmonary aspiration, perforation of viscus, bleeding, recurrent infection, the need for additional procedures, failure to diagnose a condition, and creating a complication requiring transfusion or operation were discussed with the patient. The patient concurred with the proposed plan, giving informed consent. The site of surgery properly noted/marked. The patient was taken to Operating Room, identified as Zeeshan Perera and the procedure verified as emergent CABG, EVH, SUMMER. An IABP was placed in the laboratory engineer augmenting 1:1. A Time Out was held and the above information confirmed. Standard monitoring lines and Anaya catheter were placed. General anesthesia was induced. The patient was prepped and draped in a sterile fashion. A median sternotomy was performed and electrocautery was used to obtain hemostasis. The left internal mammary artery was procured as a pedicle from the 7th rib to the 1st rib in the usual manner. Simultaneously left greater saphenous vein was procured from the left leg using a minimally invasive endoscopic technique. The vein was prepared for anastomosis and the leg wound was irrigated and closed in 2 layers. The pericardium was opened and a pericardial sling was created using interrupted 0 silk sutures. The patient was heparinized for cardiopulmonary bypass and the distal mammary pedicle was instrumented for anastomosis. The heart was instrumented for cardiopulmonary bypass in the usual manner. Antegrade blood cardioplegia was employed. The patient was placed on cardiopulmonary bypass. An aortic cross-clamp was applied and the heart was arrested using cold blood cardioplegia. Antegrade cardioplegia was administered after he each anastomosis. After adequate arrest,the 1st diagonal artery was opened with a [employer] blade and found to be a 1.5 millimeter good target. Saphenous vein was approximated to the D1 artery using a running 7 0 Prolene suture. The graft was measured for length and orientation and was suspended from the pericardium. The distal LAD was opened with a [employer] blade and found to be a 1.5 millimeter good target. The left internal mammary artery was approximated to the LAD using a running 7 0 Prolene suture. The pedicle was attached to the epicardium using interrupted 5 0 silk suture. The patient was systemically rewarmed and received a hotshot dose of warm blood cardioplegia. The aorta was vented and the proximal anastomosis to the D1 graft was accomplished using a running 5 0 Prolene suture after creating an aortotomy was a 5 millimeter punch. The cross -clamp was removed and all proximal and distal anastomoses were examined for hemostasis. The patient was weaned from cardiopulmonary bypass. Protamine was given. There was no adverse reaction. Decannulation was carried out without incident. Wound was checked for hemostasis which was obtained using electrocautery. A 36 [place] mediastinal and 32 [place] left pleural chest tubes were placed and secured to the skin with 0 silk suture. The sternum was closed with stainless steel wire. The fascia was closed with 1. PDS. The subcutaneous tissue was closed using a running 2-0 Vicryl suture. The skin was closed with 4- 0 Monocryl. Sterile dressings were placed. At the end of the operation, all sponge, instruments, and needle counts were correct. The patient was transferred to the CVICU in stable condition. Findings: Improved LV function after revascularization XC: 33 min CPB: 41 min Drains: mediastinal x 1 pleural x1 Complications: none Disposition: to CVICU in stable condition Nina Melo MD December 12, 2017 13:09
[2017-12-12] MEDS ORDERED: fentaNYL CITRATE 250 MCG/5 ML AMP ONE (13:38)
[2017-12-12] MEDS ORDERED: MORPHINE SULFATE 4 MG/ML INJ ONE (13:39)
[2017-12-12] MEDS: CLEVIDIPINE INJ 50 ML IV PRN (14:00)
[2017-12-12] MEDS: ACETAMINOPHEN 1000 MG/100 ML 100 ML IV SCH ×2 (14:23→20:46)
--- NOTE | 2017-12-12 14:43 | RADRPT ---
EXAM DATE: 12/12/2017 2:39 PM EDT AGE/SEX: 82 years / Male INDICATIONS: Post CABG. CLINICAL DATA: This is the patient's subsequent encounter. Patient reports that signs and symptoms h ave been present for 1 day and indicates a pain score of Nonresponsive. MEDICAL/SURGICAL HISTORY: Hypertension. Coronary artery disease. . Coronary artery stent. COMPARISON: No prior [place] exams available for comparison. FINDINGS: Patient is status post cardiothoracic surgery. The support devices appear to be in good po sition. There is no evidence of pneumothorax. There is some scattered infiltrates in both lung bases suggestive of atelectasis. No definite pneumothorax is demonstrated. The bony structures are grossly intact. CONCLUSION: Satisfactory postoperative view of the chest with bibasilar atelectasis. Electronically signed by: Luis Carrero MD 12/12/2017 2:42 PM EDT
[2017-12-12] MEDS ORDERED: DEXMEDETOMIDINE 200 MCG/50 ML Premix IV PRN (15:30)
--- NOTE | 2017-12-12 16:03 | EKG ---
Date Performed: 12/12/2017 Time Performed: 03:47:45 PTAGE: 82 years EKG: Sinus rhythm WITH FREQUENT VENTRICULAR PREMATURE COMPLEXES SEPTAL MYOCARDIAL INFARCTION ABNORMAL ECG INTERPRETATI ON BASED ON A DEFAULT AGE OF 40 YEARS baseline EKG NO PREVIOUS TRACING DOCTOR: Alia Naylor Interpretating Date/Time 12/12/2017 16:00:49
--- NOTE | 2017-12-12 16:05 | EKG ---
Date Performed: 12/12/2017 Time Performed: 04:11:08 PTAGE: 82 years EKG: Sinus rhythm WITH FIRST DEGREE AV BLOCK SEPTAL MYOCARDIAL INFARCTION ABNORMAL ECG when compared to prior EKG, pre viously present PVC's are no longer present,evidence of acute septal infarction. NO PREVIOUS TRACING DOCTOR: Alia Naylor Interpretating Date/Time 12/12/2017 16:02:56
--- NOTE | 2017-12-12 16:07 | EKG ---
Date Performed: 12/12/2017 Time Performed: 06:05:00 PTAGE: 82 years EKG: Sinus rhythm WITH FIRST DEGREE AV BLOCK SEPTAL MYOCARDIAL INFARCTION ACUTE OH changes of acute sepatal and anterior infarction continued Since the PREVIOUS TRACING , no significant change noted PREVIOUS TRACIN12/12/2017 04.11 DOCTOR: Alia Naylor Interpretating Date/Time 12/12/2017 16:03:27
--- NOTE | 2017-12-12 16:18 | HHI.HP ---
[facility] Service [place] [facility] Primary Care Physician Luis F Marion MD Admission Diagnosis Unstable angina, chest pain Diagnoses: Chief Complaint: chest pain Travel History International Travel<30 Days: No Contact w/Intl Traveler <30 Da: No Traveled to Known Affected Are: No History of Present Illness 82y/o male with known h/o CAD s/p stent placement to RCA in the past presents with chest pain since ~6AM. He was driving to the airport when he experienced acute onset of chest pain radiating to the jaw. He went to the [facility] ED and was found to have ST elevation in V leads. A STEMI alert was called and he was transferred to the main [facility] for emergency left heart cath. This shows chronic LAD occlusion with collaterals from a diagonal with critical subtotal occlusion. His EF was 60% recently and is now ~20-25% with fairly global hypo/ akinesis. He continues to have chest pain and Dr. Emanuel could not safely cross lesion for PCI. Cardiothoracic surgery was consulted for emergent CABG. Now post op - in ICU, Review of Systems ROS Limitations: Clinical Condition (post op intubated) Past Family Social History Past Medical History Hypertension, hyperlipidemia, coronary artery disease Past Surgical History hernia surgery Reported Medications Aspirin 81 Mg Chew 81 Mg CHEW DAILY Cozaar (Losartan Potassium) 50 Mg Tab 50 Mg PO DAILY Lipitor (Atorvastatin Calcium) 80 Mg Tab 80 Mg PO HS Allergies: Coded Allergies: No Known Allergies (Verified Allergy, Unknown, 05/03/04) Social History Reportedly negative for tobacco or ETOH abuse Physical Exam Vital Signs Vital Signs Date Time Temp Pulse Resp B/P (MAP) Pulse Ox O2 Delivery O2 Flow Rate FiO2 12/12/17 15:00 69 145/50 12/12/17 14:10 98 50 12/12/17 14:00 82/59 (89) 12/12/17 14:00 69 156/44 12/12/17 13:30 97.9 66 9 117/81 (93) 96 130/45 (73) 12/12/17 13:27 97 50 12/12/17 06:35 70 18 169/89 (115) 100 12/12/17 06:30 70 20 166/94 (118) 100 Nasal Cannula 2.00 12/12/17 06:20 70 20 169/88 (115) 100 12/12/17 06:13 100 3.00 12/12/17 06:13 100 Nasal Cannula 3.00 12/12/17 05:54 65 20 184/92 (122) 12/12/17 05:46 69 18 173/85 (114) 100 Nasal Cannula 2.00 12/12/17 05:43 61 173/85 12/12/17 04:26 66 18 176/96 (122) 100 Nasal Cannula 12/12/17 04:14 62 184/96 (125) Nasal Cannula 2.00 12/12/17 04:00 98.2 70 20 178/96 (123) 100 Nasal Cannula 2.00 12/12/17 03:50 22 100 Nasal Cannula 2.00 12/12/17 03:50 100 Nasal Cannula 2.00 12/12/17 03:50 97 22 198/105 (136) 100 Room Air 183/114 (137) 12/12/17 03:45 98.2 67 22 198/105 (136) 99 Physical Exam GENERAL:on ventilator, awakens and spoken to SKIN: No rashes, ecchymoses or lesions. Cool and dry. HEAD: Atraumatic. Normocephalic. No temporal or scalp tenderness. EYES: Pupils equal round and reactive. . No scleral icterus. No injection or drainage. ENT: Nose without bleeding, , endotracheal tube in place. NECK: Trachea midline. No JVD or lymphadenopathy. Supple, nontender, no meningeal signs. CARDIOVASCULAR: Regular rate and rhythm without murmurs, gallops, or rubs. RESPIRATORY: Clear to auscultation. Breath sounds equal bilaterally. No wheezes , rales, or rhonchi. chest tube in place- sternum GASTROINTESTINAL: Abdomen soft, non-tender, No guarding. soliz in place MUSCULOSKELETAL: Extremities without clubbing, cyanosis, or edema. Laboratory Laboratory Tests Test 12/12/17 04:00 White Blood Count 9.8 Red Blood Count 4.35 Hemoglobin 13.7 Hematocrit 41.0 Mean Corpuscular Volume 94.3 Mean Corpuscular Hemoglobin 31.6 Mean Corpuscular Hemoglobin Concent 33.5 Red Cell Distribution Width 13.8 Platelet Count 207 Mean Platelet Volume 10.1 Neutrophils (%) (Auto) 46.7 Lymphocytes (%) (Auto) 44.2 Monocytes (%) (Auto) 6.2 Eosinophils (%) (Auto) 2.5 Basophils (%) (Auto) 0.4 Neutrophils # (Auto) 4.7 Lymphocytes # (Auto) 4.3 Monocytes # (Auto) 0.6 Eosinophils # (Auto) 0.2 Basophils # (Auto) 0.0 CBC Comment DIFF FINAL Differential Comment Prothrombin Time 11.1 Prothromb Time International Ratio 1.1 Activated Partial Thromboplast Time 22.9 Blood Urea Nitrogen 31 Creatinine 1.50 Random Glucose 150 Total Protein 6.6 Albumin 3.4 Calcium Level 8.9 Magnesium Level 2.1 Alkaline Phosphatase 98 Aspartate Amino Transf (AST/SGOT) 14 Alanine Aminotransferase (ALT/SGPT) 20 Total Bilirubin 0.4 Sodium Level 142 Potassium Level 3.5 Chloride Level 110 Carbon Dioxide Level 23.4 Anion Gap 9 Estimat Glomerular Filtration Rate 45 Total Creatine Kinase 53 Troponin I 0.04 Lipase 189 Result Diagram: 12/12/17 0400 12/12/17 0400 Imaging Last Impressions Chest X-Ray 12/12/17 0000 Signed Impressions: CONCLUSION: Satisfactory postoperative view of the chest with bibasilar atelect asis. Caprini VTE Risk Assessment Caprini VTE Risk Assessment: Mod/High Risk (score >= 2) VTE Pharm Contraindication: may undergo procedure Caprini Risk Assessment Model Point Value = 1 Point Value = 2 Point Value = 3 Point Value = 5 Age 41-60 Minor surgery BMI > 25 kg/m2 Swollen legs Varicose veins or History of unexplained or recurrent spontaneous Oral contraceptives or hormone replacement Sepsis (< 1 month) Serious lung disease, including pneumonia (< 1 month) Abnormal pulmonary function Acute myocardial infarction Congestive heart failure (< 1 month) History of inflammatory bowel disease Medical patient at bed rest Age 61-74 Arthroscopic surgery Major open surgery (> 45 min) Laparoscopic surgery (> 45 min) Malignancy Confined to bed (> 72 hours) Immobilizing plaster cast Central venous access Age >= 75 History of VTE Family history of VTE Factor V Leiden Prothrombin [id number] Lupus anticoagulant Anticardiolipin antibodies Elevated serum homocysteine Heparin-induced thrombocytopenia Other congenital or acquired thrombophilia Stroke (< 1 month) Elective arthroplasty Hip, pelvis, or leg fracture Acute spinal cord injury (< 1 month) Prophylaxis Regimen Total Risk Factor Score Risk Level Prophylaxis Regimen 0-1 Low Early ambulation 2 Moderate Order ONE of the following: *Sequential Compression Device (SCD) *Heparin 5000 units SQ BID 3-4 Higher Order ONE of the following medications: *Heparin 5000 units SQ TID *Enoxaparin/Lovenox 40 mg SQ daily (WT < 150 kg, CrCl > 30 mL/min) *Enoxaparin/Lovenox 30 mg SQ daily (WT < 150 kg, CrCl > 10-29 mL/min) *Enoxaparin/Lovenox 30 mg SQ BID (WT < 150 kg, CrCl > 30 mL/min) AND/OR *Sequential Compression Device (SCD) 5 or more Highest Order ONE of the following medications: *Heparin 5000 units SQ TID (Preferred with Epidurals) *Enoxaparin/Lovenox 40 mg SQ daily (WT < 150 kg, CrCl > 30 mL/min) *Enoxaparin/Lovenox 30 mg SQ daily (WT < 150 kg, CrCl > 10-29 mL/min) *Enoxaparin/Lovenox 30 mg SQ BID (WT < 150 kg, CrCl > 30 mL/min) AND *Sequential Compression Device (SCD) Assessment and Plan Assessment and Plan 82 years old male ACS S/P cath with severe vessel disease, required IABP- on cath S/P emergent CABG #0 - cardiology and Cardiothoracic surgery ff -continue meds KI- likely chronic - ff BMP Physician Certification 2 Midnight Certification Type: Admission for Inpatient Services Order for Inpatient Services The services are ordered in accordance with Medicare regulations or non- Medicare payer requirements, as applicable. In the case of services not specified as inpatient-only, they are appropriately provided as inpatient services in accordance with the 2-midnight benchmark. Estimated LOS (days): 2 days is the estimated time the patient will need to remain in the hospital, assuming treatment plan goals are met and no additional complications. Post-Hospital Plan: Not yet determined Dash Palacios MD December 12, 2017 16:18
--- NOTE | 2017-12-12 16:20 | HHI.FF ---
Face to Face Verification Diagnosis: (1) Hyperlipemia (2) BPH (benign prostatic hyperplasia) (3) Combined systolic and diastolic congestive heart failure, NYHA class 4 (4) Chest pain (5) Unstable angina (6) ST elevation (STEMI) myocardial infarction (7) S/P CABG x 2 Home Health Nursing Order: Signs/symptoms of disease process Medication education-adverse effect Wound care and dressing changes Nursing assessment with vital signs Instructions: Heart and Vascular Surgery patients *Special attention to sternal dressing Mandatory frequency Assess and evaluation, 4 days in a row The next week 3X week 2 times a week for 4 weeks 1 time a week for 5 weeks Schedule Heart and Vascular patients for full 60 day certification period Initial visit Review Open Heart Surgery Discharge Instructions (Sternal precautions, Activity, Elastic hose, Incision care, Driving, Incentive spirometry, Smoking, [place], Work and other) Need Betadine to paint incision Medication reconciliation Importance of follow up care/ check on appointments Make calendar record temperature daily When to call [facility] at Home nurse, review instructions, phone list Incentive Spirometry, demonstration Visit 1- Begin discharge instruction for patient family and/ or caregiver using teach back method- Signs and symptoms of infection Disease characteristics Medicines and side effects Foods and nutrition/ appetite Infection control/ hand washing/ hygiene Visit 2- Continue teaching Discharge instructions- include additional information on smoking cessation , sternal dressing (sternal vac) Visit 3- Continue teaching- Cough and deep breathing, incision monitoring. Choose my plate Visit 4- Continue teaching- Discuss limitations Discuss how they are feeling Discuss progress toward goals Remaining visits- continue teaching and monitoring For any questions please call : Monday 8am-5pm Heart & Vascular Surgery Office ( Dr. May & Dr. Melo), After Hours / Nights (5pm -8am) Weekends and Holidays Please call [facility] ([facility]) Charge Nurse PREVENA Single Use Negative Wound Therapy System Caregiver Instruction Sheet 1. A Prevena dressing system was applied to the chest incision during surgery , to promote wound healing. It works via a suction device (negative pressure wound therapy) to remove low to moderate levels of exudate (drainage) and infectious materials. We recommend that the device stay in place for up to seven days, from day of surgery. 2. Day of Surgery__12/12/17 Day of Removal __12/19/17 3. The dressing should only be removed by a health child care aide. Please arrange removal of device to coincide with Home Health visit and or with Nursing staff at Rehab 4. If skin reddening or irritation of skin occurs, or excessive drainage, please notify the Cardiovascular Surgeons office at [phone]. 5. Light showering is permissible; however the pump should be disconnected and placed in safe location, where it will not get wet. The dressing should not be exposed to direct spray or submerged in water. No bath tub / shower only. Ensure the end of the tubing attached to the dressing is facing down so that water does not enter the top of the tube. 6. To remove Prevena dressing: press purple button to turn off device / remove the suction. Then disconnect the tubing from the pump. The fixation strips should be stretched away from the skin and the dressing lifted at one corner and peeled back until it has been fully removed. 7. After removal, it is ok to shower daily using liquid dial soap and clean wash cloth, rinse and pat dry, and leave incision open to air dry. For any concerns regarding Prevena dressing, and or wounds, please contact Peace Becker, patient navigator at [phone] or notify the Cardiovascular Surgeons office at [phone]. Incentive spirometry Q1 hr x 10, while awake, also use acapella device hourly whole awake Sternal Breast Bone Precautions: NO pushing or pulling, ( pt must use sternal pillow to support chest with all activities and with coughing ( takes up to 3 months breast bone to heal ) All females to wear sternal bra , launder as needed Daily incision care: ok to shower daily, no tub bath. Wash all incisions with liquid dial soap, clean wash cloth to each site, rinse and pat dry. Observe for any signs of infection, such as drainage which is dark yellow, shah, green or foul smelling. Immediately report to the surgeon any drainage from the chest incision, or legs, and for any abnormal drainage from the chest tube sites. Notify surgeon if any temp >101.5 degrees F. When specialty dressing removed/ or if you do not have one, continue to shower daily as above, then rinse and pat incision dry and paint with betadine daily x 5 days. Allow steri strips to fall off if you have any. Avoid lotions, creams, salves, oils, etc. for the first month Please see attached forms for additional instructions regarding post Open Heart specialty wound vacuum dressings. ESTEFANY or Prevena , Dressing to be removed by Nursing staff on __12/19/[address] Melo patients , please obtain CBC, BMP, PA & Lat CXR in 2 weeks, results to Dr. Melo ( prescription will be given) ( ) (Tele: [phone]) , F/U appointment: as per DC instructions: PCP in 2 weeks, CV surgeon 2 weeks, [place] [facility] 3-4 weeks For any questions regarding incisions/ dressing / meds / post op care or above Symptoms, Monday 8am-5pm Heart & Vascular Surgery Office ( Dr. May & Dr. Melo), After Hours / Nights (5pm -8am) Weekends and Holidays Please call [facility] ([facility]) Charge Nurse I have seen patient Zeeshan Perera on 12/12/17. My clinical findings support the need for the requested home health care services because: Patient has SOB Deconditioned w/ increased weakness I certify that my clinical findings support that this patient is homebound because: Post-op weakness Samira La December 12, 2017 16:20
[2017-12-12] MEDS: RESP: ALBUTEROL 2.5 MG/IPRATROPIUM 0.5 MG NEB (SCH) NEB ×2 (17:20→19:44)
[2017-12-12 17:35] LABS: TROPONIN I GREATER THAN 40.00 NG/ML (0.02-0.05)
[2017-12-12 17:49] LABS: HEMOGLOBIN A1C 5.6 % (4.3-6.0)
[2017-12-12] MEDS ORDERED: AMIODARONE HCL 150 MG/3 ML VIAL ONE (19:15)
[2017-12-12] MEDS ORDERED: GLUCAGON 1 MG/ML VIAL OTHER PRN (19:45)
[2017-12-12] MEDS ORDERED: AMIODARONE INJ 450 MG in SODIUM CHLOR 0.9% (EXCEL) INJ 241 ML IV PRN (20:00)
[2017-12-12] MEDS ORDERED: AMIODARONE 150 MG/D5W 97 ML BOLUS 10 MINUTES IV ONE ×2 (20:00)
[2017-12-12] MEDS ORDERED: AMIODARONE INJ 450 MG in D5W (EXCEL BAG) INJ 241 ML IV PRN (20:00)
[2017-12-12] MEDS: SODIUM CHLORIDE 0.9% FLUSH 10 ML FLUSH IV FLUSH SCH (20:37)
--- NOTE | 2017-12-12 21:21 | MB ---
cc: James Emanuel MD DATE: 12/12/2017 HISTORY OF PRESENT ILLNESS: Mr. Perera is an 82-year-old white male with history of coronary artery disease, right coronary artery stenting and [id number] disease in the left coronary system. Earlier this morning, he got up and was getting ready to go to the airport to fly to a family wedding, when he developed substernal chest discomfort radiating to his neck and jaw and also left arm. He was also diaphoretic, nauseated and short of breath. His brought him to the [facility] and he was diagnosed with acute coronary syndrome. His pain progressively increased and he developed ST elevations in the anterior leads, STEMI was called and he was transferred for emergent cardiac catheterization and coronary intervention to the [facility]. PAST MEDICAL HISTORY: Positive for coronary artery disease, right coronary stenting, hypertension, dyslipidemia, preserved left ventricular systolic function, history of inguinal hernia surgery. MEDICATIONS: Include: 1. Lipitor. 2. Cozaar. 3. Aspirin. ALLERGIES: NONE. SOCIAL HISTORY: The patient does not smoke. He drinks alcohol. FAMILY HISTORY: Positive for heart disease. REVIEW OF SYSTEMS: Otherwise negative. PHYSICAL EXAMINATION: VITAL SIGNS: Blood pressure 169/89, pulse 70 and regular. HEENT: Negative. NECK: 2+ carotid upstrokes, no bruits. LUNGS: Clear. HEART: Regular with no murmur, gallop or rub. ABDOMEN: Soft, no bruits. EXTREMITIES: Without edema, 2+ distal pulses. NEUROLOGIC: Grossly nonfocal. The patient is in moderate distress secondary to chest pain. CARDIOLOGY: EKG was reviewed and showed normal sinus rhythm, anterior ST elevations. Subsequent EKG shows anterior ST elevations and frequent PVCs. LABORATORY DATA: Hemoglobin 13.7. Potassium 3.5, creatinine 1.50. AST and ALT normal. Troponin 0.04. DIAGNOSES: 1. Acute anterior wall myocardial infarction. 2. Coronary artery disease, history of right coronary stenting and [id number] disease in the left coronary system. 3. Hypertension. 4. Dyslipidemia. DISPOSITION: Mr. Perera will undergo emergent cardiac catheterization and coronary intervention. He understands the risks and benefits, and wishes to proceed. MD RUTH Guadalupe/JUAN/felisa , 06:17 PM , 07:40 PM MTDKim
[2017-12-12] MEDS: SODIUM BICARBONATE 8.4% SOLN 50 MEQ/50 ML VIAL IV PUSH PRN (22:42)
[2017-12-13] VITALS (16 sets, daily range): BP systolic 98–158; BP diastolic 39–81; PULSE 66–97; RESP 12–20; TEMP 98.1–99.6; O2SAT 94–98
[2017-12-13] MEDS: ACETAMINOPHEN 1000 MG/100 ML 100 ML IV SCH ×2 (01:00→06:14)
[2017-12-13] MEDS: CLEVIDIPINE INJ 50 ML IV PRN (01:24)
[2017-12-13] MEDS: SODIUM BICARBONATE 8.4% SOLN 50 MEQ/50 ML VIAL IV PUSH PRN (01:42)
[2017-12-13] MEDS: ONDANSETRON ODT 4 MG TAB PO PRN ×2 (03:13→07:58)
[2017-12-13] MEDS: RESP: ALBUTEROL 2.5 MG/IPRATROPIUM 0.5 MG NEB (SCH) NEB ×3 (04:24→12:12)
--- NOTE | 2017-12-13 04:44 | RADRPT ---
EXAM DATE: 12/13/2017 4:40 AM EDT AGE/SEX: 82 years / Male INDICATIONS: Short of breath. Status post extubation. CLINICAL DATA: This is the patient's subsequent encounter. Patient reports that signs and symptoms h ave been present for 1 week and indicates a pain score of 0/10. MEDICAL/SURGICAL HISTORY: . Hypertension. Coronary artery disease. . Coronary artery stent. [place]PARISON: [facility] [place], 12/12[place]. . FINDINGS: A single AP semierect view of the chest was obtained. Left-sided chest tube remains in place. No conf luent infiltrates are present. The left costophrenic angle remains blunted. The patient has been extu bated. The nasogastric tube is been removed. The right internal jugular central venous line remains i n place. The patient is status post median sternotomy. There is no pneumothorax. CONCLUSION: 1. Status post extubation and removal of nasogastric tube. 2. Left-sided chest tube with no pneumothorax. Electronically signed by: Roman Rodriguez MD 12/13/2017 4:43 AM EDT
[2017-12-13 05:07] LABS: HEMATOCRIT 33.8 % (39.0-51.0); HEMOGLOBIN 11.3 GM/DL (13.0-17.0); MEAN CORPUSCULAR HEMOGLOBIN 31.4 PG (27.0-34.0); MEAN CORPUSCULAR HGB CONC 33.5 % (32.0-36.0); MEAN PLATELET VOLUME 10.9 FL (7.0-11.0); PLATELET COUNT 143 TH/MM3 (150-450); RED BLOOD COUNT 3.59 MIL/MM3 (4.50-5.90); RED CELL DISTRIBUTION WIDTH 14.3 % (11.6-17.2)
[2017-12-13 05:38] LABS: BICARBONATE 26.3 MEQ/L (21.0-32.0); CALCIUM 8.3 MG/DL (8.5-10.1); CREATININE 1.31 MG/DL (0.60-1.30); MAGNESIUM 2.2 MG/DL (1.5-2.5)
[2017-12-13 05:40] LABS: CHOLESTEROL/ HDL RATIO 1.93 RATIO; HDL CHOLESTEROL 43.5 MG/DL (40.0-60.0)
[2017-12-13] MEDS: PANTOPRAZOLE SOD 40 MG DELAYED RELEASE TAB PO SCH (06:00)
[2017-12-13] MEDS: SODIUM CHLORIDE 0.9% FLUSH 10 ML FLUSH IV FLUSH SCH ×2 (07:41→20:02)
[2017-12-13] MEDS: AMIODARONE 200 MG TAB PO SCH ×3 (10:04→17:08)
[2017-12-13] MEDS: ASPIRIN 81 MG CHEW TAB PO SCH (10:05)
--- NOTE | 2017-12-13 10:42 | PD.CAR.PN ---
CVT Progress Note Subjective/Hospital Course: 82y/o male with known h/o CAD s/p stent placement to RCA in the past presents with chest pain. . [place] driving to the airport [place] when he experienced acute onset of chest pain radiating to the jaw. He went to the [place] ED and was found to have ST elevation in V leads. A STEMI alert was called and he waas transferred to the main campus for emergency left heart cath. This shows chronic LAD occlusion with collaterals from a diagonal with critical subtotal occlusion. His EF was 60% recently and is now ~20-25% with fairly global hypo/akinesis. He continues to have chest pain and Dr. Emanuel could not safely cross lesion for PCI. Plan emergent CABG. IABP placed by Dr Emanuel preop PMH: CAD, HX of RCA stent , HTN, HLP, SSS BPH preop HX ST elevation (STEMI) myocardial infarction Unstable angina Combined systolic and diastolic congestive heart failure, NYHA class 4 12/12 surgery : Emergency CABG x 2 COREY to LAD SVG to D1 L EVH crystalloid 4500cc, 750cc cell saver, EBL 1450 extubated after surgery 12/13 IABP 1: this am BP stable right groin prepped with chlorhexidine, IABP sutures removed under sterile technique Right IABP / with sheath removed / balloon intact / hemostasis obtained after 15 min / additional pressure then held by RN pressure dressing applied / pt tolerated well. To remain flat x 6 hours weaned off Insulin gtt pt had short burst vtach last evening , amiodarone bolus given / amiodarone po started , no further ectopy eval for transfer to stepdown later today Objective: GENERAL: A&O x 3 SKIN: Warm and dry. prevena dressing to chest, gabriela wrap left leg HEAD: Atraumatic. Normocephalic. EYES: Pupils equal and round. No scleral icterus. No injection or drainage. ENT: No nasal bleeding or discharge. Mucous membranes pink and moist. NECK: Trachea midline. No JVD. CARDIOVASCULAR: Regular rate and rhythm. NSR , + distal pulses, IABP removed right groin RESPIRATORY: No accessory muscle use. Clear to auscultation. Breath sounds equal bilaterally. GASTROINTESTINAL: Abdomen soft, non-tender, nondistended. Hepatic and splenic margins not palpable. MUSCULOSKELETAL: Extremities without clubbing, cyanosis, or edema. No obvious deformities. NEUROLOGICAL: Awake and alert. No obvious cranial nerve deficits. Motor grossly within normal limits. Five out of 5 muscle strength in the arms and legs. Normal speech. PSYCHIATRIC: Appropriate mood and affect; insight and judgment normal. Vital Signs Date Time Temp Pulse Resp B/P (MAP) Pulse Ox O2 Delivery O2 Flow Rate FiO2 12/13/17 08:55 94 Nasal Cannula 2.00 12/13/17 08:00 100/60 (90) 12/13/17 07:00 83 12/13/17 07:00 95 Nasal Cannula 3.00 12/13/17 07:00 94/58 (86) 12/13/17 07:00 98.6 96 18 135/63 (87) 95 Arterial Line 12/13/17 06:00 98/66 (89) 12/13/17 05:00 104/60 (90) 12/13/17 04:37 100/57 (85) 12/13/17 03:00 66 12/13/17 03:00 99.6 84 20 116/63 (80) 98 158/39 (78) 12/13/17 03:00 97/54 (85) 12/13/17 02:00 96/51 (84) 12/13/17 01:24 82 131/40 12/13/17 01:00 86/48 (73) 12/13/17 00:00 82/46 (76) 12/12/17 23:21 149/45 12/12/17 23:00 69 12/12/17 23:00 99.3 67 20 109/67 (81) 98 134/38 (70) 12/12/17 23:00 81/47 (73) 12/12/17 22:06 119/41 12/12/17 22:00 71/42 (65) 12/12/17 21:00 82/53 (72) 12/12/17 20:37 114 110/67 12/12/17 20:37 143/43 12/12/17 20:00 87/51 (74) 12/12/17 20:00 77 12/12/17 19:40 99 Nasal Cannula 4 12/12/17 19:40 98.6 12/12/17 19:40 99 Nasal Cannula 4.00 12/12/17 19:30 99 Mechanical Ventilator 40 12/12/17 19:30 40 12/12/17 19:30 99.3 74 23 114/76 (89) 99 135/43 (73) 12/12/17 19:30 12/12/17 19:00 135/43 12/12/17 18:41 22 12/12/17 18:20 72/45 (78) 12/12/17 18:00 79 143/50 12/12/17 17:15 99 40 12/12/17 17:00 75/45 (75) 12/12/17 17:00 66 106/40 12/12/17 16:37 97.8 67 14 95/60 (72) 98 127/43 (71) 12/12/17 16:15 40 12/12/17 16:00 50 12/12/17 16:00 77/52 (73) 12/12/17 15:00 67 12/12/17 15:00 67 12/12/17 15:00 74/55 (75) 12/12/17 15:00 69 145/50 12/12/17 14:38 98.6 12/12/17 14:10 98 50 12/12/17 14:00 82/59 (89) 12/12/17 14:00 69 156/44 12/12/17 13:31 98.6 12/12/17 13:30 97.9 66 9 117/81 (93) 96 130/45 (73) 12/12/17 13:30 50 12/12/17 13:27 97 50 Labs: Laboratory Tests Test 12/13/17 04:13 White Blood Count 19.0 TH/MM3 (4.0-11.0) Red Blood Count 3.59 MIL/MM3 (4.50-5.90) Hemoglobin 11.3 GM/DL (13.0-17.0) Hematocrit 33.8 % (39.0-51.0) Mean Corpuscular Volume 94.0 FL (80.0-100.0) Mean Corpuscular Hemoglobin 31.4 PG (27.0-34.0) Mean Corpuscular Hemoglobin Concent 33.5 % (32.0-36.0) Red Cell Distribution Width 14.3 % (11.6-17.2) Platelet Count 143 TH/MM3 (150-450) Mean Platelet Volume 10.9 FL (7.0-11.0) Blood Urea Nitrogen 25 MG/DL (7-18) Creatinine 1.31 MG/DL (0.60-1.30) Random Glucose 135 MG/DL (74-106) Calcium Level 8.3 MG/DL (8.5-10.1) Magnesium Level 2.2 MG/DL (1.5-2.5) Sodium Level 146 MEQ/L (136-145) Potassium Level 4.4 MEQ/L (3.5-5.1) Chloride Level 113 MEQ/L (98-107) Carbon Dioxide Level 26.3 MEQ/L (21.0-32.0) Anion Gap 7 MEQ/L (5-15) Estimat Glomerular Filtration Rate 53 ML/MIN (>89) Triglycerides Level 55 MG/DL (42-150) Cholesterol Level 84 MG/DL (120-200) LDL Cholesterol 30 MG/DL (0-99) HDL Cholesterol 43.5 MG/DL (40.0-60.0) Cholesterol/HDL Ratio 1.93 RATIO Result Diagram: 12/13/17 0413 12/13/17 0413 Telemetry: NSR no acute changes (1) S/P CABG x 2 Plan: ASA, stain BB eval for diuresis later today (2) ST elevation (STEMI) myocardial infarction (3) Unstable angina (4) Combined systolic and diastolic congestive heart failure, NYHA class 4 Plan: eval for diuresis , will need GABRIELA when BP tolerates (5) Hyperlipemia (6) BPH (benign prostatic hyperplasia) Plan: resume home meds Problem Qualifiers (1) ST elevation (STEMI) myocardial infarction: Qualified Codes: I21.3 - ST elevation (STEMI) myocardial infarction of unspecified site (2) Combined systolic and diastolic congestive heart failure, NYHA class 4: Qualified Codes: I50.41 - Acute combined systolic (congestive) and diastolic ( congestive) heart failure Samira La December 13, 2017 10:42
[2017-12-13] MEDS ORDERED: GLUCAGON 1 MG/ML VIAL OTHER PRN (10:45)
[2017-12-13] MEDS ORDERED: BISACODYL 10 MG SUPP RECTAL PRN (10:45)
[2017-12-13] MEDS ORDERED: DEXTROSE 50% IN WATER 50 ML VIAL(D50) IV PUSH PRN (10:45)
[2017-12-13] MEDS ORDERED: SOD PHOSPHATE/SOD BIPHOSPHATE (ADULT) ENEMA 133ML RECTAL PRN (10:45)
[2017-12-13] MEDS: METOPROLOL TARTRATE 25 MG TAB PO SCH ×2 (11:47→20:02)
[2017-12-13] MEDS: oxyCODONE/ACETAMINOPHEN 5 MG/325 MG TAB PO PRN ×4 (13:00→23:43)
--- NOTE | 2017-12-13 13:52 | HHI.PR ---
Subjective Remarks no complains Objective Vitals Vital Signs Date Time Temp Pulse Resp B/P (MAP) Pulse Ox O2 Delivery O2 Flow Rate FiO2 12/13/17 11:33 98.4 94 18 146/73 (97) 95 12/13/17 11:00 88 12/13/17 08:55 94 Nasal Cannula 2.00 12/13/17 08:00 100/60 (90) 12/13/17 07:00 83 12/13/17 07:00 95 Nasal Cannula 3.00 12/13/17 07:00 94/58 (86) 12/13/17 07:00 98.6 96 18 135/63 (87) 95 Arterial Line 12/13/17 06:00 98/66 (89) 12/13/17 05:00 104/60 (90) 12/13/17 04:37 100/57 (85) 12/13/17 03:00 66 12/13/17 03:00 99.6 84 20 116/63 (80) 98 158/39 (78) 12/13/17 03:00 97/54 (85) 12/13/17 02:00 96/51 (84) 12/13/17 01:24 82 131/40 12/13/17 01:00 86/48 (73) 12/13/17 00:00 82/46 (76) 12/12/17 23:21 149/45 12/12/17 23:00 69 12/12/17 23:00 99.3 67 20 109/67 (81) 98 134/38 (70) 12/12/17 23:00 81/47 (73) 12/12/17 22:06 119/41 12/12/17 22:00 71/42 (65) 12/12/17 21:00 82/53 (72) 12/12/17 20:37 114 110/67 12/12/17 20:37 143/43 12/12/17 20:00 87/51 (74) 12/12/17 20:00 77 12/12/17 19:40 99 Nasal Cannula 4 12/12/17 19:40 98.6 12/12/17 19:40 99 Nasal Cannula 4.00 12/12/17 19:30 99 Mechanical Ventilator 40 12/12/17 19:30 40 12/12/17 19:30 99.3 74 23 114/76 (89) 99 135/43 (73) 12/12/17 19:30 12/12/17 19:00 135/43 12/12/17 18:41 22 12/12/17 18:20 72/45 (78) 12/12/17 18:00 79 143/50 12/12/17 17:15 99 40 12/12/17 17:00 75/45 (75) 12/12/17 17:00 66 106/40 12/12/17 16:37 97.8 67 14 95/60 (72) 98 127/43 (71) 12/12/17 16:15 40 12/12/17 16:00 50 12/12/17 16:00 77/52 (73) 12/12/17 15:00 67 12/12/17 15:00 67 12/12/17 15:00 74/55 (75) 12/12/17 15:00 69 145/50 12/12/17 14:38 98.6 12/12/17 14:10 98 50 12/12/17 14:00 82/59 (89) 12/12/17 14:00 69 156/44 I/O 12/12/17 12/12/17 12/12/17 12/13/17 12/13/17 12/13/17 07:00 15:00 23:00 07:00 15:00 23:00 Intake Total 5560 ml 1211 ml 544.6 ml Output Total 2250 ml 1070 ml 1000 ml Balance 3310 ml 141 ml -455.4 ml Intake Oral 300 ml IV Total 310 ml 1211 ml 244.6 ml Autotransfusion 750 ml Other 4500 ml Output Urine Total 750 ml 600 ml 650 ml Chest Tube Drainage Total 470 ml 350 ml Estimated Blood Loss 1500 ml # Voids 5 Result Diagram: 12/13/17 0413 12/13/17 0413 Imaging Last Impressions Chest X-Ray 12/13/17 0500 Signed Impressions: CONCLUSION: Objective Remarks anicteric right neck central line in place chest tube in place sinus on telemetry' abdomen- soft soliz in place extremities no edema- elastic psot op dresing in place- left leg Procedures 12/12 CABG x 3 Urinary Catheter: Yes Assessment to: Continue Soliz insert reason: Surgical/Invasive Proced Date of Insertion: December 12, 2017 A/P Assessment and Plan 82 years old male ACS S/P cath with severe vessel disease, required IABP- on cath S/P emergent CABG #1 - cardiology and Cardiothoracic surgery ff -continue meds CKI - ff Dash Pollard MD December 13, 2017 13:52
[2017-12-13] MEDS: INSULIN ASPART SUPPLEMENTAL SCALE SQ SCH ×3 (13:59→22:00)
--- NOTE | 2017-12-13 14:38 | EKG ---
Date Performed: 12/13/2017 Time Performed: 02:50:32 PTAGE: 82 years EKG: Sinus rhythm Possible anteroseptal infarct - age undetermined Abnormal ECG No significant change from prior elect rocardiogram. PREVIOUS TRACING : 12/12/2017 06.05 DOCTOR: Bao Draper Interpretating Date/Time 12/13/2017 14:36:55
--- NOTE | 2017-12-13 16:10 | PD.CARD.PN ---
Subjective Subjective Remarks C/o wound pain, no SOB, no angina Objective Medications Current Medications Medications (Trade) Dose Ordered Sig/Poly Route Start Time Stop Time Status Last Admin (Tylenol) 650 mg Q4H PRN PO 12/12/17 05:00 (Milk Of Magnesia Liq) 30 ml Q12H PRN PO 12/12/17 05:00 (Senokot) 17.2 mg Q12H PRN PO 12/12/17 05:00 (Dulcolax Supp) 10 mg DAILY PRN RECTAL 12/12/17 05:00 (Lactulose Liq) 30 ml DAILY PRN PO 12/12/17 05:00 (Pill Splitter) 1 ea UNSCH PRN OTHER 12/12/17 08:45 (NS Flush) 2 ml BID IV FLUSH 12/12/17 21:00 (NS Flush) 2 ml UNSCH PRN IV FLUSH 12/12/17 13:00 Cefazolin Sodium 1000 mg/Sodium Chloride 100 ml @ 200 mls/hr Q8H IV 12/12/17 14:00 12/13/17 22:29 12/13/17 13:42 (Aspirin Chew) 81 mg DAILY PO 12/13/17 09:00 12/13/17 10:05 (Protonix) 40 mg DAILY@06 PO 12/13/17 06:00 (Tylenol) 650 mg Q4H PRN PO 12/12/17 13:00 (Percocet 5-325 Mg) 1 tab Q3H PRN PO 12/12/17 13:00 12/13/17 13:00 (Zofran Odt) 4 mg Q6H PRN PO 12/12/17 13:00 12/13/17 07:58 (Apresoline Inj) 10 mg Q4H PRN IV PUSH 12/12/17 13:00 (Duoneb Neb) 1 ampule Q2HR NEB PRN NEB 12/12/17 13:00 (Cordarone) 400 mg TID PO 12/13/17 09:00 12/13/17 13:01 (Lipitor) 80 mg HS PO 12/13/17 21:00 (Duoneb Neb) 1 ampule Q6HR WHILE AWAKE NEB NEB 12/13/17 14:00 12/15/17 13:59 12/13/17 12:12 (Colace) 100 mg BID PO 12/13/17 21:00 (Theragran M Tab) 1 tab DAILY PO 12/14/17 09:00 (Milk Of Magnesia Liq) 30 ml DAILY PO 12/14/17 09:00 (Dulcolax Supp) 10 mg UNSCH PRN RECTAL 12/13/17 10:45 (Miralax) 17 gm DAILY PO 12/14/17 09:00 (Senokot) 8.6 mg HS PO 12/13/17 21:00 (Fleets Enema (Adult)) 118 ml UNSCH PRN RECTAL 12/13/17 10:45 (Lopressor) 12.5 mg BID PO 12/13/17 10:45 12/13/17 11:47 (NovoLOG SUPPLEMENTAL SCALE) 1 02,06,10,14,18,22 SQ 12/13/17 14:00 12/14/17 13:59 12/13/17 13:59 (D50w (Vial) Inj) 50 ml UNSCH PRN IV PUSH 12/13/17 10:45 (Glucagon Inj) 1 mg UNSCH PRN OTHER 12/13/17 10:45 (Flomax) 0.4 mg DAILY PO 12/14/17 09:00 (NovoLOG SUPPLEMENTAL SCALE) 1 ACHS SQ 12/14/17 12:00 Vital Signs / I&O Vital Signs Date Time Temp Pulse Resp B/P (MAP) Pulse Ox O2 Delivery O2 Flow Rate FiO2 12/13/17 15:00 98.1 90 20 119/65 (83) 98 12/13/17 15:00 82 12/13/17 14:41 90 12/13/17 14:41 98.1 90 20 98/65 (76) 98 12/13/17 11:33 98.4 94 18 146/73 (97) 95 12/13/17 11:00 88 12/13/17 08:55 94 Nasal Cannula 2.00 12/13/17 08:00 100/60 (90) 12/13/17 07:00 83 12/13/17 07:00 95 Nasal Cannula 3.00 12/13/17 07:00 94/58 (86) 12/13/17 07:00 98.6 96 18 135/63 (87) 95 Arterial Line 12/13/17 06:00 98/66 (89) 12/13/17 05:00 104/60 (90) 12/13/17 04:37 100/57 (85) 12/13/17 03:00 66 12/13/17 03:00 99.6 84 20 116/63 (80) 98 158/39 (78) 12/13/17 03:00 97/54 (85) 12/13/17 02:00 96/51 (84) 12/13/17 01:24 82 131/40 12/13/17 01:00 86/48 (73) 12/13/17 00:00 82/46 (76) 12/12/17 23:21 149/45 12/12/17 23:00 69 12/12/17 23:00 99.3 67 20 109/67 (81) 98 134/38 (70) 12/12/17 23:00 81/47 (73) 12/12/17 22:06 119/41 12/12/17 22:00 71/42 (65) 12/12/17 21:00 82/53 (72) 12/12/17 20:37 114 110/67 12/12/17 20:37 143/43 12/12/17 20:00 87/51 (74) 12/12/17 20:00 77 12/12/17 19:40 99 Nasal Cannula 4 12/12/17 19:40 98.6 12/12/17 19:40 99 Nasal Cannula 4.00 12/12/17 19:30 99 Mechanical Ventilator 40 12/12/17 19:30 40 12/12/17 19:30 99.3 74 23 114/76 (89) 99 135/43 (73) 12/12/17 19:30 12/12/17 19:00 135/43 12/12/17 18:41 22 12/12/17 18:20 72/45 (78) 12/12/17 18:00 79 143/50 12/12/17 17:15 99 40 12/12/17 17:00 75/45 (75) 12/12/17 17:00 66 106/40 12/12/17 16:37 97.8 67 14 95/60 (72) 98 127/43 (71) 12/12/17 16:15 40 I/O 5/22/18 5/2212/12/17 12/13/17 12/13/17 12/13/17 07:00 15:00 23:00 07:00 15:00 23:00 Intake Total 5560 ml 1211 ml 544.6 ml 690 ml Output Total 2250 ml 1070 ml 1000 ml 455 ml Balance 3310 ml 141 ml -455.4 ml 235 ml Intake Oral 300 ml 570 ml IV Total 310 ml 1211 ml 244.6 ml 120 ml Autotransfusion 750 ml Other 4500 ml Output Urine Total 750 ml 600 ml 650 ml 275 ml Chest Tube Drainage Total 470 ml 350 ml 180 ml Estimated Blood Loss 1500 ml # Voids 5 # Bowel Movements 0 Physical Exam GENERAL: In NAD SKIN: Warm and dry. HEAD: Normocephalic. EYES: No scleral icterus. No injection or drainage. NECK: Supple, trachea midline. No JVD or lymphadenopathy. CARDIOVASCULAR: Regular rate and rhythm without murmurs, gallops, or rubs. RESPIRATORY: Breath sounds equal bilaterally. No accessory muscle use. GASTROINTESTINAL: Abdomen soft, non-tender, nondistended. MUSCULOSKELETAL: No cyanosis, or edema. CT in place Laboratory Laboratory Tests Test 12/13/17 04:13 White Blood Count 19.0 TH/MM3 Red Blood Count 3.59 MIL/MM3 Hemoglobin 11.3 GM/DL Hematocrit 33.8 % Mean Corpuscular Volume 94.0 FL Mean Corpuscular Hemoglobin 31.4 PG Mean Corpuscular Hemoglobin Concent 33.5 % Red Cell Distribution Width 14.3 % Platelet Count 143 TH/MM3 Mean Platelet Volume 10.9 FL Blood Urea Nitrogen 25 MG/DL Creatinine 1.31 MG/DL Random Glucose 135 MG/DL Calcium Level 8.3 MG/DL Magnesium Level 2.2 MG/DL Sodium Level 146 MEQ/L Potassium Level 4.4 MEQ/L Chloride Level 113 MEQ/L Carbon Dioxide Level 26.3 MEQ/L Anion Gap 7 MEQ/L Estimat Glomerular Filtration Rate 53 ML/MIN Triglycerides Level 55 MG/DL Cholesterol Level 84 MG/DL LDL Cholesterol 30 MG/DL HDL Cholesterol 43.5 MG/DL Cholesterol/HDL Ratio 1.93 RATIO Imaging Last 24 hours Impressions Chest X-Ray 12/13/17 0500 Signed Impressions: CONCLUSION: 1. Status post extubation and removal of nasogastric tube. 2. Left-sided chest tube with no pneumothorax. Assessment and Plan Problem List: (1) S/P CABG x 2 ICD Codes: Z95.1 - Presence of aortocoronary bypass graft (2) ST elevation (STEMI) myocardial infarction ICD Codes: I21.3 - ST elevation (STEMI) myocardial infarction of unspecified site Status: Acute (3) Unstable angina ICD Codes: I20.0 - Unstable angina Status: Acute (4) Combined systolic and diastolic congestive heart failure, NYHA class 4 ICD Codes: I50.40 - Unspecified combined systolic (congestive) and diastolic ( congestive) heart failure (5) Hyperlipemia ICD Codes: E78.5 - Hyperlipidemia, unspecified (6) BPH (benign prostatic hyperplasia) ICD Codes: N40.0 - Benign prostatic hyperplasia without lower urinary tract symptoms Assessment and Plan Good progress postop. Stays in SR. Continue beta tova. Start low dose GABRIELA-I, monitor renal fx. Continue ICU care. Problem Qualifiers (1) ST elevation (STEMI) myocardial infarction: Qualified Codes: I21.3 - ST elevation (STEMI) myocardial infarction of unspecified site (2) Combined systolic and diastolic congestive heart failure, NYHA class 4: Qualified Codes: I50.41 - Acute combined systolic (congestive) and diastolic ( congestive) heart failure James Emanuel MD December 13, 2017 16:10
[2017-12-13] MEDS: ATORVASTATIN 80 MG TAB PO SCH (20:01)
[2017-12-13] MEDS: SENNOSIDES 8.6 MG TAB PO SCH (20:01)
[2017-12-13] MEDS: DOCUSATE SODIUM 100 MG CAP PO SCH (20:02)
[2017-12-14] VITALS (26 sets, daily range): BP systolic 100–121; BP diastolic 56–61; PULSE 70–96; RESP 16–20; TEMP 98–99.2; O2SAT 86–97
[2017-12-14] MEDS: INSULIN ASPART SUPPLEMENTAL SCALE SQ SCH ×6 (02:00→21:00)
[2017-12-14] MEDS: PANTOPRAZOLE SOD 40 MG DELAYED RELEASE TAB PO SCH (04:34)
[2017-12-14] MEDS: oxyCODONE/ACETAMINOPHEN 5 MG/325 MG TAB PO PRN ×3 (04:34→11:39)
[2017-12-14 05:07] LABS: AUTOMATED NEUTROPHIL # 13.7 TH/MM3 (1.8-7.7); BASOPHIL % 0.2 % (0.0-2.0); EOSINOPHIL % 0.1 % (0.0-4.0); HEMATOCRIT 28.5 % (39.0-51.0); HEMOGLOBIN 9.5 GM/DL (13.0-17.0); LYMPH % 9.9 % (9.0-44.0); LYMPHOCYTE # 1.7 TH/MM3 (1.0-4.8); MEAN CORPUSCULAR HEMOGLOBIN 31.7 PG (27.0-34.0); MEAN CORPUSCULAR HGB CONC 33.4 % (32.0-36.0); MEAN PLATELET VOLUME 10.5 FL (7.0-11.0); MONO % 9.7 % (0.0-8.0); MONOCYTE # 1.7 TH/MM3 (0-0.9); NEUT % 80.1 % (16.0-70.0); PLATELET COUNT 119 TH/MM3 (150-450); RED CELL DISTRIBUTION WIDTH 14.6 % (11.6-17.2); WHITE BLOOD COUNT 17.1 TH/MM3 (4.0-11.0)
[2017-12-14 05:25] LABS: BICARBONATE 25.1 MEQ/L (21.0-32.0); CALCIUM 8.3 MG/DL (8.5-10.1); CREATININE 1.47 MG/DL (0.60-1.30); MAGNESIUM 2.3 MG/DL (1.5-2.5)
[2017-12-14] MEDS: AMIODARONE 200 MG TAB PO SCH ×2 (08:43→21:05)
[2017-12-14] MEDS: ONDANSETRON ODT 4 MG TAB PO PRN (08:43)
[2017-12-14] MEDS: METOPROLOL TARTRATE 25 MG TAB PO SCH ×2 (08:43→21:05)
[2017-12-14] MEDS: ASPIRIN 81 MG CHEW TAB PO SCH (08:43)
[2017-12-14] MEDS: DOCUSATE SODIUM 100 MG CAP PO SCH ×2 (08:43→21:05)
[2017-12-14] MEDS: TAMSULOSIN HCL 0.4 MG CAP PO SCH (08:43)
[2017-12-14] MEDS: MULTIVITAMINS/MINERALS THERAPEUTIC TAB PO SCH (08:43)
[2017-12-14] MEDS: MAGNESIUM HYDROXIDE SUSP 30 ML CUP PO SCH (08:44)
[2017-12-14] MEDS: POLYETHYLENE GLYCOL 17 GM PKG PO SCH (08:44)
[2017-12-14] MEDS: SODIUM CHLORIDE 0.9% FLUSH 10 ML FLUSH IV FLUSH SCH ×2 (09:00→21:06)
[2017-12-14] MEDS: RESP: ALBUTEROL 2.5 MG/IPRATROPIUM 0.5 MG NEB (SCH) NEB ×4 (09:18→20:27)
[2017-12-14] MEDS ORDERED: SODIUM CHLORID 0.9% 500 ML INJ 250 ML IV SCH (11:00)
[2017-12-14] MEDS ORDERED: SODIUM CHLORID 0.9% 500 ML INJ 500 ML IV SCH (11:00)
--- NOTE | 2017-12-14 11:07 | HHI.PR ---
Subjective Remarks some post op pain telemetry - SR up in chair eating Objective Vitals Vital Signs Date Time Temp Pulse Resp B/P (MAP) Pulse Ox O2 Delivery O2 Flow Rate FiO2 12/14/17 10:00 79 12/14/17 09:19 97 Nasal Cannula 21 12/14/17 09:00 94 12/14/17 08:00 94 12/14/17 07:30 98.9 88 20 121/56 (77) 97 12/14/17 07:30 87 12/14/17 07:30 97 Nasal Cannula 1.00 12/14/17 06:00 76 12/14/17 05:00 86 12/14/17 04:00 96 12/14/17 03:00 99.2 82 16 106/61 (76) 96 12/14/17 03:00 77 12/14/17 02:00 82 12/14/17 01:00 76 12/14/17 00:00 78 12/13/17 23:00 99.4 95 12 129/69 (89) 96 12/13/17 23:00 97 12/13/17 22:00 94 12/13/17 21:00 84 12/13/17 20:00 86 12/13/17 19:10 98 Nasal Cannula 1.00 12/13/17 19:10 98.4 84 16 113/81 (92) 98 12/13/17 19:00 81 12/13/17 18:00 77 12/13/17 17:00 76 12/13/17 16:00 94 12/13/17 15:00 98.1 90 20 119/65 (83) 98 12/13/17 15:00 82 12/13/17 14:41 90 12/13/17 14:41 98.1 90 20 98/65 (76) 98 12/13/17 11:33 98.4 94 18 146/73 (97) 95 I/O 12/13/17 12/13/17 12/13/17 12/14/17 12/14/17 12/14/17 07:00 15:00 23:00 07:00 15:00 23:00 Intake Total 544.6 ml 690 ml 580 ml 720 ml Output Total 1000 ml 455 ml 160 ml 490 ml Balance -455.4 ml 235 ml 420 ml 230 ml Intake Oral 300 ml 570 ml 480 ml 720 ml IV Total 244.6 ml 120 ml 100 ml Output Urine Total 650 ml 275 ml 0 ml 300 ml Chest Tube Drainage Total 350 ml 180 ml 160 ml 190 ml # Bowel Movements 0 0 0 Result Diagram: 12/14/170 12/14/17 0440 Imaging Last Impressions Chest X-Ray 12/13/17 0500 Signed Impressions: CONCLUSION: 1. Status post extubation and removal of nasogastric tube. 2. Left-sided chest tube with no pneumothorax. Objective Remarks anicteric right neck central line in place chest tube in place sinus on telemetry' abdomen- soft extremities no edema- elastic post op dresing in place- left leg Procedures 12/12 CABG x 3 Date of Insertion: December 12, 2017 A/P Assessment and Plan 82 years old male ACS S/P cath with severe vessel disease, required IABP- on cath S/P emergent CABG #2 - cardiology and Cardiothoracic surgery ff - continue meds- On Amidoarone, statins, BB and ASA CKI- ff BMP PT daily DC planning Dash Palacios MD December 14, 2017 11:07
--- NOTE | 2017-12-14 14:02 | PD.CAR.PN ---
CVT Progress Note Subjective/Hospital Course: 82y/o male with known h/o CAD s/p stent placement to RCA in the past presents with chest pain. . [place] the [place] when he experienced acute onset of chest pain radiating to the jaw. He went to the [place] ED and was found to have ST elevation in V leads. A STEMI alert was called and he waas transferred to the main campus for emergency left heart cath. This shows chronic LAD occlusion with collaterals from a diagonal with critical subtotal occlusion. His EF was 60% recently and is now ~20-25% with fairly global hypo/akinesis. He continues to have chest pain and Dr. Emanuel could not safely cross lesion for PCI. Plan emergent CABG. IABP placed by Dr Emanuel preop PMH: CAD, HX of RCA stent , HTN, HLP, SSS BPH preop HX ST elevation (STEMI) myocardial infarction Unstable angina Combined systolic and diastolic congestive heart failure, NYHA class 4 12/12 surgery : Emergency CABG x 2 COREY to LAD SVG to D1 L EVH crystalloid 4500cc, 750cc cell saver, EBL 1450 extubated after surgery 12/13 IABP 1: this am BP stable right groin prepped with chlorhexidine, IABP sutures removed under sterile technique Right IABP / with sheath removed / balloon intact / hemostasis obtained after 15 min / additional pressure then held by RN pressure dressing applied / pt tolerated well. To remain flat x 6 hours weaned off Insulin gtt pt had short burst vtach last evening , amiodarone bolus given / amiodarone po started , no further ectopy eval for transfer to stepdown later today 12/14 pt BP on lower side, creatinine up low urine outpt add 250cc NS, pt encouraged to increase po fluids for now bladder scan was on ly 150cc/ no further arrhythmia noted chest tube drained 190cc/ 12 hrs will leave in place today Objective: Vital Signs Date Time Temp Pulse Resp B/P (MAP) Pulse Ox O2 Delivery O2 Flow Rate FiO2 12/14/17 12:00 70 12/14/17 11:00 77 12/14/17 11:00 98.8 75 18 100/59 (73) 94 12/14/17 10:00 79 12/14/17 09:19 97 Nasal Cannula 21 12/14/17 09:00 94 12/14/17 08:00 94 5/24/18 07:30 98.9 88 20 121/56 (77) 97 12/14/17 07:30 87 12/14/17 07:30 97 Nasal Cannula 1.00 12/14/17 06:00 76 12/14/17 05:00 86 12/14/17 04:00 96 12/14/17 03:00 99.2 82 16 106/61 (76) 96 12/14/17 03:00 77 12/14/17 02:00 82 12/14/17 01:00 76 12/14/17 00:00 78 12/13/17 23:00 99.4 95 12 129/69 (89) 96 12/13/17 23:00 97 12/13/17 22:00 94 12/13/17 21:00 84 12/13/17 20:00 86 12/13/17 19:10 98 Nasal Cannula 1.00 12/13/17 19:10 98.4 84 16 113/81 (92) 98 12/13/17 19:00 81 12/13/17 18:00 77 12/13/17 17:00 76 12/13/17 16:00 94 12/13/17 15:00 98.1 90 20 119/65 (83) 98 12/13/17 15:00 82 12/13/17 14:41 90 12/13/17 14:41 98.1 90 20 98/65 (76) 98 Labs: Laboratory Tests Test 12/14/17 04:40 White Blood Count 17.1 TH/MM3 (4.0-11.0) Red Blood Count 3.00 MIL/MM3 (4.50-5.90) Hemoglobin 9.5 GM/DL (13.0-17.0) Hematocrit 28.5 % (39.0-51.0) Mean Corpuscular Volume 95.0 FL (80.0-100.0) Mean Corpuscular Hemoglobin 31.7 PG (27.0-34.0) Mean Corpuscular Hemoglobin Concent 33.4 % (32.0-36.0) Red Cell Distribution Width 14.6 % (11.6-17.2) Platelet Count 119 TH/MM3 (150-450) Mean Platelet Volume 10.5 FL (7.0-11.0) Neutrophils (%) (Auto) 80.1 % (16.0-70.0) Lymphocytes (%) (Auto) 9.9 % (9.0-44.0) Monocytes (%) (Auto) 9.7 % (0.0-8.0) Eosinophils (%) (Auto) 0.1 % (0.0-4.0) Basophils (%) (Auto) 0.2 % (0.0-2.0) Neutrophils # (Auto) 13.7 TH/MM3 (1.8-7.7) Lymphocytes # (Auto) 1.7 TH/MM3 (1.0-4.8) Monocytes # (Auto) 1.7 TH/MM3 (0-0.9) Eosinophils # (Auto) 0.0 TH/MM3 (0-0.4) Basophils # (Auto) 0.0 TH/MM3 (0-0.2) CBC Comment DIFF FINAL Differential Comment Blood Urea Nitrogen 30 MG/DL (7-18) Creatinine 1.47 MG/DL (0.60-1.30) Random Glucose 132 MG/DL (74-106) Calcium Level 8.3 MG/DL (8.5-10.1) Magnesium Level 2.3 MG/DL (1.5-2.5) Sodium Level 141 MEQ/L (136-145) Potassium Level 4.2 MEQ/L (3.5-5.1) Chloride Level 108 MEQ/L (98-107) Carbon Dioxide Level 25.1 MEQ/L (21.0-32.0) Anion Gap 8 MEQ/L (5-15) Estimat Glomerular Filtration Rate 46 ML/MIN (>89) Result Diagram: 12/14/1743912/14/17 0440 (1) S/P CABG x 2 Plan: ASA, stain BB no diuretics on room air pulm toileting OOB ambulate 250cc NS bolus over on hour f/u labs in am (2) ST elevation (STEMI) myocardial infarction (3) Unstable angina (4) Combined systolic and diastolic congestive heart failure, NYHA class 4 Plan: eval for diuresis , will need GABRIELA when BP tolerates (5) Hyperlipemia Plan: on statin (6) BPH (benign prostatic hyperplasia) Plan: resume home meds Problem Qualifiers (1) ST elevation (STEMI) myocardial infarction: Qualified Codes: I21.3 - ST elevation (STEMI) myocardial infarction of unspecified site (2) Combined systolic and diastolic congestive heart failure, NYHA class 4: Qualified Codes: I50.41 - Acute combined systolic (congestive) and diastolic ( congestive) heart failure Samira La December 14, 2017 14:02
--- NOTE | 2017-12-14 14:04 | HHI.DCPOC ---
Discharge Care Plan Diagnosis: (1) Combined systolic and diastolic congestive heart failure, NYHA class 4 (2) Hyperlipemia (3) BPH (benign prostatic hyperplasia) (4) ST elevation (STEMI) myocardial infarction (5) S/P CABG x 2 Additional Problems PREVENA Single Use Negative Wound Therapy System Caregiver Instruction Sheet 1. A Prevena dressing system was applied to the chest incision during surgery , to promote wound healing. It works via a suction device (negative pressure wound therapy) to remove low to moderate levels of exudate (drainage) and infectious materials. We recommend that the device stay in place for up to seven days, from day of surgery. 2. Day of Surgery__/ Day of Removal ____/ 3. The dressing should only be removed by a health health care marketing manager. Please arrange removal of device to coincide with Home Health visit and or with Nursing staff at Rehab 4. If skin reddening or irritation of skin occurs, or excessive drainage, please notify the Cardiovascular Surgeons office at [phone]. 5. Light showering is permissible; however the pump should be disconnected and placed in safe location, where it will not get wet. The dressing should not be exposed to direct spray or submerged in water. No bath tub / shower only. Ensure the end of the tubing attached to the dressing is facing down so that water does not enter the top of the tube. 6. To remove Prevena dressing: press purple button to turn off device / remove the suction. Then disconnect the tubing from the pump. The fixation strips should be stretched away from the skin and the dressing lifted at one corner and peeled back until it has been fully removed. 7. After removal, it is ok to shower daily using liquid dial soap and clean wash cloth, rinse and pat dry, and leave incision open to air dry. For any concerns regarding Prevena dressing, and or wounds, please contact Peace Becker, patient navigator at [phone] or notify the Cardiovascular Surgeons office at [phone]. Incentive spirometry Q1 hr x 10, while awake, also use acapella device hourly whole awake Sternal Breast Bone Precautions: NO pushing or pulling, ( pt must use sternal pillow to support chest with all activities and with coughing ( takes up to 3 months breast bone to heal ) All females to wear sternal bra , launder as needed Daily incision care: ok to shower daily, no tub bath. Wash all incisions with liquid dial soap, clean wash cloth to each site, rinse and pat dry. Observe for any signs of infection, such as drainage which is dark yellow, shah, green or foul smelling. Immediately report to the surgeon any drainage from the chest incision, or legs, and for any abnormal drainage from the chest tube sites. Notify surgeon if any temp >101.5 degrees F. When specialty dressing removed/ or if you do not have one, continue to shower daily as above, then rinse and pat incision dry and paint with betadine daily x 5 days. Allow steri strips to fall off if you have any. Avoid lotions, creams, salves, oils, etc. for the first month Please see attached forms for additional instructions regarding post Open Heart specialty wound vacuum dressings. ESTEFANY or Prevena , Dressing to be removed by Nursing staff on __12/19/[address] Melo patients , please obtain CBC, BMP, PA & Lat CXR in 2 weeks, results to Dr. Melo ( prescription will be given) ( ) (Tele: [phone]) , F/U appointment: as per [place] instructions: PCP in 2 weeks, CV surgeon 2 weeks, International Marketing Specialist 3-4 weeks For any questions regarding incisions/ dressing / meds / post op care or above Symptoms, Monday 8am-5pm Heart & Vascular Surgery Office ( Dr. May & Dr. Melo), After Hours / Nights (5pm -8am) Weekends and Holidays Please call [facility] ([facility]) Charge Nurse Goals to Promote Your Health * To prevent worsening of your condition and complications * To maintain your health at the optimal level Directions to Meet Your Goals Take your medications as prescribed Follow your dietary instruction Follow activity as directed Keep your appointments as scheduled Take your immunizations and boosters as scheduled If your symptoms worsen call your PCP, if no PCP go to Urgent Care Center or Emergency Room Smoking is Dangerous to Your Health. Avoid second hand smoke Call the 24-hour hour crisis hotline for domestic abuse at Samira La December 14, 2017 14:04
--- NOTE | 2017-12-14 15:17 | PD.CARD.PN ---
Subjective Subjective Remarks C/o chest wall pain, no SOB, no angina, overall improvement Objective Medications Current Medications Medications (Trade) Dose Ordered Sig/Poly Route Start Time Stop Time Status Last Admin (Tylenol) 650 mg Q4H PRN PO 12/12/17 05:00 (Milk Of Magnesia Liq) 30 ml Q12H PRN PO 12/12/17 05:00 (Senokot) 17.2 mg Q12H PRN PO 12/12/17 05:00 (Dulcolax Supp) 10 mg DAILY PRN RECTAL 12/12/17 05:00 (Lactulose Liq) 30 ml DAILY PRN PO 12/12/17 05:00 (Pill Splitter) 1 ea UNSCH PRN OTHER 12/12/17 08:45 (NS Flush) 2 ml BID IV FLUSH 12/12/17 21:00 12/14/17 09:00 (NS Flush) 2 ml UNSCH PRN IV FLUSH 12/12/17 13:00 (Aspirin Chew) 81 mg DAILY PO 12/13/17 09:00 12/14/17 08:43 (Protonix) 40 mg DAILY@06 PO 12/13/17 06:00 12/14/17 04:34 (Tylenol) 650 mg Q4H PRN PO 12/12/17 13:00 (Zofran Odt) 4 mg Q6H PRN PO 12/12/17 13:00 12/14/17 08:43 (Apresoline Inj) 10 mg Q4H PRN IV PUSH 12/12/17 13:00 (Duoneb Neb) 1 ampule Q2HR NEB PRN NEB 12/12/17 13:00 (Lipitor) 80 mg HS PO 12/13/17 21:00 12/13/17 20:01 (Duoneb Neb) 1 ampule Q6HR WHILE AWAKE NEB NEB 12/13/17 14:00 12/15/17 13:59 12/14/17 12:16 (Colace) 100 mg BID PO 12/13/17 21:00 12/14/17 08:43 (Theragran M Tab) 1 tab DAILY PO 12/14/17 09:00 12/14/17 08:43 (Milk Of Magnesia Liq) 30 ml DAILY PO 12/14/17 09:00 12/14/17 08:44 (Dulcolax Supp) 10 mg UNSCH PRN RECTAL 12/13/17 10:45 (Miralax) 17 gm DAILY PO 12/14/17 09:00 12/14/17 08:44 (Senokot) 8.6 mg HS PO 12/13/17 21:00 12/13/17 20:01 (Fleets Enema (Adult)) 118 ml UNSCH PRN RECTAL 12/13/17 10:45 (Lopressor) 12.5 mg BID PO 12/13/17 10:45 12/14/17 08:43 (D50w (Vial) Inj) 50 ml UNSCH PRN IV PUSH 12/13/17 10:45 (Glucagon Inj) 1 mg UNSCH PRN OTHER 12/13/17 10:45 (Flomax) 0.4 mg DAILY PO 12/14/17 09:00 12/14/17 08:43 (NovoLOG SUPPLEMENTAL SCALE) 1 ACHS SQ 12/14/17 12:00 12/14/17 11:39 (Cordarone) 400 mg Q12HR PO 12/14/17 21:00 ([place] 5-325 Mg) 1 tab Q4H PRN PO 12/14/17 14:45 UNV Vital Signs / I&O Vital Signs Date Time Temp Pulse Resp B/P (MAP) Pulse Ox O2 Delivery O2 Flow Rate FiO2 12/14/17 14:00 76 12/14/17 13:00 78 12/14/17 12:00 70 12/14/17 11:00 77 12/14/17 11:00 98.8 75 18 100/59 (73) 94 12/14/17 10:00 79 12/14/17 09:19 97 Nasal Cannula 21 12/14/17 09:00 94 12/14/17 08:00 94 12/14/17 07:30 98.9 88 20 121/56 (77) 97 12/14/17 07:30 87 12/14/17 07:30 97 Nasal Cannula 1.00 12/14/17 06:00 76 12/14/17 05:00 86 12/14/17 04:00 96 12/14/17 03:00 99.2 82 16 106/61 (76) 96 12/14/17 03:00 77 12/14/17 02:00 82 12/14/17 01:00 76 12/14/17 00:00 78 12/13/17 23:00 99.4 95 12 129/69 (89) 96 12/13/17 23:00 97 12/13/17 22:00 94 12/13/17 21:00 84 12/13/17 20:00 86 12/13/17 19:10 98 Nasal Cannula 1.00 12/13/17 19:10 98.4 84 16 113/81 (92) 98 12/13/17 19:00 81 12/13/17 18:00 77 12/13/17 17:00 76 12/13/17 16:00 94 I/O 12/13/17 12/13/17 12/13/17 12/14/17 12/14/17 12/14/17 07:00 15:00 23:00 07:00 15:00 23:00 Intake Total 544.6 ml 690 ml 580 ml 720 ml Output Total 1000 ml 455 ml 160 ml 490 ml Balance -455.4 ml 235 ml 420 ml 230 ml Intake Oral 300 ml 570 ml 480 ml 720 ml IV Total 244.6 ml 120 ml 100 ml Output Urine Total 650 ml 275 ml 0 ml 300 ml Chest Tube Drainage Total 350 ml 180 ml 160 ml 190 ml # Bowel Movements 0 0 0 Physical Exam GENERAL: In NAD SKIN: Warm and dry. HEAD: Normocephalic. EYES: No scleral icterus. No injection or drainage. NECK: Supple, trachea midline. No JVD or lymphadenopathy. CARDIOVASCULAR: Regular rate and rhythm without murmurs, gallops, or rubs. RESPIRATORY: Breath sounds equal bilaterally. No accessory muscle use. GASTROINTESTINAL: Abdomen soft, non-tender, nondistended. MUSCULOSKELETAL: No cyanosis, or edema. Laboratory Laboratory Tests Test 12/14/17 04:40 White Blood Count 17.1 TH/MM3 Red Blood Count 3.00 MIL/MM3 Hemoglobin 9.5 GM/DL Hematocrit 28.5 % Mean Corpuscular Volume 95.0 FL Mean Corpuscular Hemoglobin 31.7 PG Mean Corpuscular Hemoglobin Concent 33.4 % Red Cell Distribution Width 14.6 % Platelet Count 119 TH/MM3 Mean Platelet Volume 10.5 FL Neutrophils (%) (Auto) 80.1 % Lymphocytes (%) (Auto) 9.9 % Monocytes (%) (Auto) 9.7 % Eosinophils (%) (Auto) 0.1 % Basophils (%) (Auto) 0.2 % Neutrophils # (Auto) 13.7 TH/MM3 Lymphocytes # (Auto) 1.7 TH/MM3 Monocytes # (Auto) 1.7 TH/MM3 Eosinophils # (Auto) 0.0 TH/MM3 Basophils # (Auto) 0.0 TH/MM3 CBC Comment DIFF FINAL Differential Comment Blood Urea Nitrogen 30 MG/DL Creatinine 1.47 MG/DL Random Glucose 132 MG/DL Calcium Level 8.3 MG/DL Magnesium Level 2.3 MG/DL Sodium Level 141 MEQ/L Potassium Level 4.2 MEQ/L Chloride Level 108 MEQ/L Carbon Dioxide Level 25.1 MEQ/L Anion Gap 8 MEQ/L Estimat Glomerular Filtration Rate 46 ML/MIN Assessment and Plan Problem List: (1) S/P CABG x 2 ICD Codes: Z95.1 - Presence of aortocoronary bypass graft (2) ST elevation (STEMI) myocardial infarction ICD Codes: I21.3 - ST elevation (STEMI) myocardial infarction of unspecified site Status: Acute (3) Unstable angina ICD Codes: I20.0 - Unstable angina Status: Acute (4) Combined systolic and diastolic congestive heart failure, NYHA class 4 ICD Codes: I50.40 - Unspecified combined systolic (congestive) and diastolic ( congestive) heart failure (5) Hyperlipemia ICD Codes: E78.5 - Hyperlipidemia, unspecified (6) BPH (benign prostatic hyperplasia) ICD Codes: N40.0 - Benign prostatic hyperplasia without lower urinary tract symptoms Assessment and Plan No new cardiac issues. No angina, CHF or arrhythmias. Stays in SR. Continue beta tova, low dose GABRIELA-I, monitor renal fx. Continue ICU care. Problem Qualifiers (1) ST elevation (STEMI) myocardial infarction: Qualified Codes: I21.3 - ST elevation (STEMI) myocardial infarction of unspecified site (2) Combined systolic and diastolic congestive heart failure, NYHA class 4: Qualified Codes: I50.41 - Acute combined systolic (congestive) and diastolic ( congestive) heart failure James Emanuel MD December 14, 2017 15:17
[2017-12-14 16:27] LABS: BILIRUBIN, URINE NEG (NEG); BLOOD, URINE MOD (NEG); GLUCOSE,URINE NEG (NEG); KETONE, URINE NEG (NEG); MUCUS URINE FEW /lpf (OCC); NITRITE,URINE NEG (NEG); PH, URINE 5.5 (5.0-8.5); SQUAMOUS EPITHELIAL CELL URINE <1 /hpf (0-5); URINE COLOR YELLOW (YELLW/STRAW); URINE LEUKOCYTE ESTERASE NEG (NEG)
[2017-12-14] MEDS: ACETAMINOPHEN/HYDROcodone 325 MG/5 MG TAB PO PRN ×2 (17:38→21:06)
[2017-12-14] MEDS: ATORVASTATIN 80 MG TAB PO SCH (21:05)
[2017-12-14] MEDS: SENNOSIDES 8.6 MG TAB PO SCH (21:05)
[2017-12-15] VITALS (32 sets, daily range): BP systolic 96–117; BP diastolic 54–65; PULSE 68–94; RESP 17–19; TEMP 97.8–99.5; O2SAT 19–99
[2017-12-15] MEDS: ACETAMINOPHEN/HYDROcodone 325 MG/5 MG TAB PO PRN ×3 (04:19→20:21)
[2017-12-15 04:44] LABS: HEMATOCRIT 24.3 % (39.0-51.0); MEAN CELL VOLUME 95.1 FL (80.0-100.0); MEAN CORPUSCULAR HEMOGLOBIN 31.1 PG (27.0-34.0); MEAN CORPUSCULAR HGB CONC 32.7 % (32.0-36.0); MEAN PLATELET VOLUME 10.6 FL (7.0-11.0); PLATELET COUNT 102 TH/MM3 (150-450); RED BLOOD COUNT 2.56 MIL/MM3 (4.50-5.90); WHITE BLOOD COUNT 12.3 TH/MM3 (4.0-11.0)
[2017-12-15 05:14] LABS: BICARBONATE 27.5 MEQ/L (21.0-32.0); CALCIUM 7.9 MG/DL (8.5-10.1); CREATININE 1.73 MG/DL (0.60-1.30); MAGNESIUM 2.6 MG/DL (1.5-2.5)
[2017-12-15] MEDS: PANTOPRAZOLE SOD 40 MG DELAYED RELEASE TAB PO SCH (05:53)
[2017-12-15] MEDS: POLYETHYLENE GLYCOL 17 GM PKG PO SCH (08:20)
[2017-12-15] MEDS: INSULIN ASPART SUPPLEMENTAL SCALE SQ SCH ×4 (08:20→20:21)
[2017-12-15] MEDS: MAGNESIUM HYDROXIDE SUSP 30 ML CUP PO SCH (08:20)
[2017-12-15] MEDS: DOCUSATE SODIUM 100 MG CAP PO SCH ×2 (08:21→20:20)
[2017-12-15] MEDS: METOPROLOL TARTRATE 25 MG TAB PO SCH ×2 (08:21→20:19)
[2017-12-15] MEDS: AMIODARONE 200 MG TAB PO SCH ×2 (08:21→20:21)
[2017-12-15] MEDS: ASPIRIN 81 MG CHEW TAB PO SCH (08:21)
[2017-12-15] MEDS: MULTIVITAMINS/MINERALS THERAPEUTIC TAB PO SCH (08:21)
[2017-12-15] MEDS: SODIUM CHLORIDE 0.9% FLUSH 10 ML FLUSH IV FLUSH SCH ×2 (08:22→20:21)
[2017-12-15] MEDS: TAMSULOSIN HCL 0.4 MG CAP PO SCH (08:22)
[2017-12-15] MEDS: RESP: ALBUTEROL 2.5 MG/IPRATROPIUM 0.5 MG NEB (SCH) NEB (08:39)
--- NOTE | 2017-12-15 12:42 | PD.CONS ---
[facility] Service Urology Consult Requested By Reason for Consult Urinary retention Primary Care Physician Luis F Marion MD Diagnosis: History of Present Illness 82-year-old gentleman with history obstructing BPH who recently underwent coronary artery bypass grafting. Postoperatively the patient developed urinary retention requiring intermittent catheterization. Patient was last catheterized yesterday afternoon and since that time has not produced much urine. Multiple attempts to be catheterized the patient were made without success thus prompting a urology evaluation. Upon further questioning, the patient reports that he underwent a TURP procedure by Dr. Samano approximately 16 years ago. Since that time his voiding pattern has remained acceptable to him. His only urological complaints were nocturia several times. He denied any significant daytime symptoms. He denied a history of gross hematuria or dysuria. Review of Systems Cardiovascular: COMPLAINS OF: Chest pain (Upon arrival to the emergency room) Genitourinary: DENIES: Hematuria, Dysuria Musculoskeletal: DENIES: Back pain Except as stated in HPI: all other systems reviewed are Neg Past Family Social History Past Medical History Obstructing BPH Hypertension Hyperlipidemia Coronary artery disease Past Surgical History Status post TURP approximately 16 years ago Status post cardiac stent placement Status post left inguinal herniorrhaphy Reported Medications Refer to EMR Allergies: Coded Allergies: No Known Allergies (Verified Allergy, Unknown, 05/03/04) Active Ordered Medications Refer to EMR Family History Reviewed and noncontributory Social History Lives at home with his Denies tobacco use Denies history of alcohol abuse Physical Exam Vital Signs Date Time Temp Pulse Resp B/P (MAP) Pulse Ox O2 Delivery O2 Flow Rate FiO2 12/15/17 08:45 99 21 12/15/17 07:44 72 12/15/17 07:44 98.5 72 18 96/54 (68) 94 12/15/17 06:17 78 12/15/17 05:06 77 12/15/17 04:49 78 12/15/17 03:40 78 12/15/17 03:40 98.4 86 17 112/61 (78) 93 12/15/17 02:04 76 12/15/17 01:50 75 12/15/17 00:00 77 12/14/17 23:30 98.5 86 18 107/57 (74) 97 12/14/17 23:30 85 12/14/17 22:24 85 12/14/17 21:40 82 12/14/17 20:40 80 12/14/17 20:29 95 Nasal Cannula 2.00 12/14/17 19:30 77 12/14/17 19:30 98.2 84 19 103/57 (72) 86 12/14/17 19:30 86 Nasal Cannula 2.00 12/14/17 18:00 78 12/14/17 17:00 83 12/14/17 16:20 75 12/14/17 15:00 75 12/14/17 15:00 98.0 80 20 100/59 (73) 95 12/14/17 14:00 76 12/14/17 13:00 78 Physical Exam GENERAL: This is a well-nourished, well-developed patient, in no apparent distress. SKIN: No rashes, ecchymoses or lesions. Cool and dry. HEAD: Atraumatic. Normocephalic. No temporal or scalp tenderness. EYES: Pupils equal round and reactive. Extraocular motions intact. No scleral icterus. No injection or drainage. ENT: Nose without bleeding, purulent drainage or septal hematoma. Throat without erythema, tonsillar hypertrophy or exudate. Uvula midline. Airway patent. NECK: Trachea midline. No JVD or lymphadenopathy. Supple, nontender, no meningeal signs. GASTROINTESTINAL: Abdomen soft, non-tender, nondistended. No hepato-splenomegaly , or palpable masses. No guarding. GENITOURINARY: Bladder distended, normal male genitalia, no CVA tenderness MUSCULOSKELETAL: Extremities without clubbing, cyanosis, or edema. No joint tenderness, effusion, or edema noted. No calf tenderness. Negative Homans sign bilaterally. NEUROLOGICAL: Awake and alert. Cranial nerves II through XII intact. Motor and sensory grossly within normal limits. Five out of 5 muscle strength in all muscle groups. Normal speech. Lab results reviewed: Yes Laboratory Tests Test 12/14/17 15:15 12/15/17 04:12 Urine Color YELLOW Urine Turbidity CLEAR Urine pH 5.5 Urine Specific Cassel 1.025 Urine Protein 30 Urine Glucose (UA) NEG Urine Ketones NEG Urine Occult Blood MOD Urine Nitrite NEG Urine Bilirubin NEG Urine Urobilinogen LESS THAN 2.0 Urine Leukocyte Esterase NEG Urine RBC 21 Urine WBC 1 Urine Squamous Epithelial Cells <1 Urine Granular Casts 5 Urine Mucus FEW Microscopic Urinalysis Comment CULT NOT INDICATED White Blood Count 12.3 Red Blood Count 2.56 Hemoglobin 8.0 Hematocrit 24.3 Mean Corpuscular Volume 95.1 Mean Corpuscular Hemoglobin 31.1 Mean Corpuscular Hemoglobin Concent 32.7 Red Cell Distribution Width 14.0 Platelet Count 102 Mean Platelet Volume 10.6 Blood Urea Nitrogen 31 Creatinine 1.73 Random Glucose 108 Calcium Level 7.9 Magnesium Level 2.6 Sodium Level 141 Potassium Level 4.3 Chloride Level 106 Carbon Dioxide Level 27.5 Anion Gap 8 Estimat Glomerular Filtration Rate 38 Result Diagram: 12/15/1741112/15/17411 Imaging Last Impressions Chest X-Ray 12/13/17 0500 Signed Impressions: CONCLUSION: 1. Status post extubation and removal of nasogastric tube. 2. Left-sided chest tube with no pneumothorax. Hospital Course Initial attempt to pass a 18 [place] coud catheter using sterile technique was not successful secondary to resistance met within the bulbar urethra consistent with a false passage. I was able to successfully place this catheter using a catheter guide with evacuation of greater than 1200 cc davon urine. Assessment and Plan Assessment and Plan Urologic impression: 1. Postoperative urinary retention 2. History obstructing BPH 3. Difficult catheterization likely related to creation of a urethral false passage Recommendations: 1. Continue with present Anaya catheter to gravity drainage 2. Anaya catheter to remain indwelling for at least 1 week 3. Patient advised to follow-up with his established urologist Dr. Samano after 1 week for Anaya removal and voiding trial. 4. Will be available as needed. David Molina MD December 15, 2017 12:42
--- NOTE | 2017-12-15 12:50 | HHI.PR ---
Subjective Remarks having voiding difficulties- history of BPH Urology consulted and Dr. Molina placed foely- 1200cc out Objective Vitals Vital Signs Date Time Temp Pulse Resp B/P (MAP) Pulse Ox O2 Delivery O2 Flow Rate FiO2 12/15/17 08:45 99 21 12/15/17 07:44 72 12/15/17 07:44 98.5 72 18 96/54 (68) 94 12/15/17 06:17 78 12/15/17 05:06 77 12/15/17 04:49 78 12/15/17 03:40 78 12/15/17 03:40 98.4 86 17 112/61 (78) 93 12/15/17 02:04 76 12/15/17 01:50 75 12/15/17 00:00 77 12/14/17 23:30 98.5 86 18 107/57 (74) 97 12/14/17 23:30 85 12/14/17 22:24 85 12/14/17 21:40 82 12/14/17 20:40 80 12/14/17 20:29 95 Nasal Cannula 2.00 12/14/17 19:30 77 12/14/17 19:30 98.2 84 19 103/57 (72) 86 12/14/17 19:30 86 Nasal Cannula 2.00 12/14/17 18:00 78 12/14/17 17:00 83 12/14/17 16:20 75 12/14/17 15:00 75 12/14/17 15:00 98.0 80 20 100/59 (73) 95 12/14/17 14:00 76 12/14/17 13:00 78 I/O 12/14/17 12/14/17 12/14/17 12/15/17 12/15/17 12/15/17 07:00 15:00 23:00 07:00 15:00 23:00 Intake Total 720 ml 960 ml 480 ml Output Total 490 ml 450 ml 245 ml Balance 230 ml 510 ml 235 ml Intake Oral 720 ml 960 ml 480 ml Output Urine Total 300 ml 300 ml 75 ml Chest Tube Drainage Total 190 ml 150 ml 170 ml # Bowel Movements 0 0 0 Result Diagram: 12/15/17 0412 12/15/17 0412 Imaging Last Impressions Chest X-Ray 12/13/17 0500 Signed Impressions: CONCLUSION: 1. Status post extubation and removal of nasogastric tube. 2. Left-sided chest tube with no pneumothorax. Objective Remarks anicteric right neck central line in place chest tube in place sinus on telemetry' abdomen- soft extremities no edema- elastic post op dresing in place- left leg soliz in place Procedures 12/12 CABG x 3 Urinary Catheter: Yes Assessment to: Continue Soliz insert reason: Obstruction/Retention Date of Insertion: December 15, 2017 A/P Assessment and Plan 82 years old male ACS S/P cath with severe vessel disease, required IABP- on cath S/P emergent CABG #2 - cardiology and Cardiothoracic surgery ff - continue meds- On Amidoarone, statins, BB and ASA CKI- ff BMP Acute urinary retention history of BPH - soliz placed 12/[address] Molina . continue Flomax - OP ff up with urology - home with soliz Acute anemia- post op - for blood transfusion PT daily DC planning Dash Palacios MD December 15, 2017 12:50
[2017-12-15] MEDS ORDERED: FUROSEMIDE 20 MG/2 ML VIAL IV PUSH ONE (13:30)
--- NOTE | 2017-12-15 16:32 | PD.CAR.PN ---
CVT Progress Note Subjective/Hospital Course: 82y/o male with known h/o CAD s/p stent placement to RCA in the past presents with chest pain. . [place] the [place] when he experienced acute onset of chest pain radiating to the jaw. He went to the [place] ED and was found to have ST elevation in V leads. A STEMI alert was called and he waas transferred to the main campus for emergency left heart cath. This shows chronic LAD occlusion with collaterals from a diagonal with critical subtotal occlusion. His EF was 60% recently and is now ~20-25% with fairly global hypo/akinesis. He continues to have chest pain and Dr. Emanuel could not safely cross lesion for PCI. Plan emergent CABG. IABP placed by Dr Emanuel preop PMH: CAD, HX of RCA stent , HTN, HLP, SSS BPH preop HX ST elevation (STEMI) myocardial infarction Unstable angina Combined systolic and diastolic congestive heart failure, NYHA class 4 12/12 surgery : Emergency CABG x 2 COREY to LAD SVG to D1 L EVH crystalloid 4500cc, 750cc cell saver, EBL 1450 extubated after surgery 12/13 IABP 1: this am BP stable right groin prepped with chlorhexidine, IABP sutures removed under sterile technique Right IABP / with sheath removed / balloon intact / hemostasis obtained after 15 min / additional pressure then held by RN pressure dressing applied / pt tolerated well. To remain flat x 6 hours weaned off Insulin gtt pt had short burst vtach last evening , amiodarone bolus given / amiodarone po started , no further ectopy eval for transfer to stepdown later today 12/14 pt BP on lower side, creatinine up low urine outpt add 250cc NS, pt encouraged to increase po fluids for now bladder scan was on ly 150cc/ no further arrhythmia noted chest tube drained 190cc/ 12 hrs will leave in place today 12/15 leave chest tube in today / drained 170cc/ 12 hrs BP labile , will decrease dose of amiodarone no further evidence of Vtach consult Dr Elizabeth/ per Dr Emanuel for need for Life vest at discharge will not tolerate GABRIELA inhibitor at this time transfuse 2 units PRBC with lasix Objective: Vital Signs Date Time Temp Pulse Resp B/P (MAP) Pulse Ox O2 Delivery O2 Flow Rate FiO2 12/15/17 15:30 97.8 68 18 117/59 (78) 94 12/15/17 15:30 68 12/15/17 14:00 78 12/15/17 13:00 76 12/15/17 12:00 70 12/15/17 11:30 84 12/15/17 11:30 98.3 84 18 104/58 (73) 97 12/15/17 11:00 82 12/15/17 10:00 70 12/15/17 08:45 99 21 12/15/17 08:00 72 12/15/17 07:44 72 12/15/17 07:44 98.5 72 18 96/54 (68) 94 12/15/17 07:30 98.2 72 18 96/61 (73) 94 12/15/17 07:30 72 12/15/17 07:00 94 Room Air 12/15/17 06:17 78 12/15/17 05:06 77 12/15/17 04:49 78 12/15/17 03:40 78 12/15/17 03:40 98.4 86 17 112/61 (78) 93 12/15/17 02:04 76 12/15/17 01:50 75 12/15/17 00:00 77 12/14/17 23:30 98.5 86 18 107/57 (74) 97 12/14/17 23:30 85 12/14/17 22:24 85 12/14/17 21:40 82 12/14/17 20:40 80 12/14/17 20:29 95 Nasal Cannula 2.00 12/14/17 19:30 77 12/14/17 19:30 98.2 84 19 103/57 (72) 86 12/14/17 19:30 86 Nasal Cannula 2.00 12/14/17 18:00 78 12/14/17 17:00 83 Result Diagram: 12/15/17 0412 12/15/17 041 (1) S/P CABG x 2 Plan: ASA, stain BB no diuretics on room air pulm toileting OOB ambulate 250cc NS bolus over on hour f/u labs in am (2) ST elevation (STEMI) myocardial infarction (3) Unstable angina (4) Combined systolic and diastolic congestive heart failure, NYHA class 4 Plan: consult Dr Clara azrate for Life vest at discharge GABRIELA when BP tolerates (5) Hyperlipemia Plan: on statin (6) BPH (benign prostatic hyperplasia) Plan: resume home meds (7) urinary retention Plan: Dr Frederick replaced soliz cath will leave in at discharge he will then need to follwed by Dr Mena for voiding trial Problem Qualifiers (1) ST elevation (STEMI) myocardial infarction: Qualified Codes: I21.3 - ST elevation (STEMI) myocardial infarction of unspecified site (2) Combined systolic and diastolic congestive heart failure, NYHA class 4: Qualified Codes: I50.41 - Acute combined systolic (congestive) and diastolic ( congestive) heart failure Samira La December 15, 2017 16:32
[2017-12-15] MEDS: SENNOSIDES 8.6 MG TAB PO SCH (20:20)
[2017-12-15] MEDS: ATORVASTATIN 80 MG TAB PO SCH (20:20)
[2017-12-15] MEDS ORDERED: FUROSEMIDE 20 MG/2 ML VIAL IV PUSH SCH (22:45)
[2017-12-15] MEDS: FUROSEMIDE 20 MG/2 ML VIAL IV PUSH SCH (22:52)
[2017-12-16] VITALS (27 sets, daily range): BP systolic 91–118; BP diastolic 55–68; PULSE 60–82; RESP 17–19; TEMP 97.5–98.7; O2SAT 91–96
[2017-12-16] MEDS: ACETAMINOPHEN/HYDROcodone 325 MG/5 MG TAB PO PRN ×2 (02:43→17:18)
[2017-12-16] MEDS: FUROSEMIDE 20 MG/2 ML VIAL IV PUSH SCH (02:43)
[2017-12-16 04:08] LABS: HEMATOCRIT 29.9 % (39.0-51.0); HEMOGLOBIN 10.1 GM/DL (13.0-17.0); MEAN CELL VOLUME 91.8 FL (80.0-100.0); MEAN CORPUSCULAR HEMOGLOBIN 31.2 PG (27.0-34.0); MEAN CORPUSCULAR HGB CONC 33.9 % (32.0-36.0); MEAN PLATELET VOLUME 9.7 FL (7.0-11.0); PLATELET COUNT 130 TH/MM3 (150-450); RED BLOOD COUNT 3.25 MIL/MM3 (4.50-5.90); RED CELL DISTRIBUTION WIDTH 14.6 % (11.6-17.2); WHITE BLOOD COUNT 12.2 TH/MM3 (4.0-11.0)
[2017-12-16 04:30] LABS: BICARBONATE 27.5 MEQ/L (21.0-32.0); CALCIUM 7.9 MG/DL (8.5-10.1); CREATININE 1.78 MG/DL (0.60-1.30)
[2017-12-16] MEDS: PANTOPRAZOLE SOD 40 MG DELAYED RELEASE TAB PO SCH (06:46)
[2017-12-16] MEDS: INSULIN ASPART SUPPLEMENTAL SCALE SQ SCH ×4 (08:00→21:00)
[2017-12-16] MEDS: TAMSULOSIN HCL 0.4 MG CAP PO SCH (09:01)
[2017-12-16] MEDS: MULTIVITAMINS/MINERALS THERAPEUTIC TAB PO SCH (09:02)
[2017-12-16] MEDS: ASPIRIN 81 MG CHEW TAB PO SCH (09:02)
[2017-12-16] MEDS: DOCUSATE SODIUM 100 MG CAP PO SCH ×2 (09:02→21:04)
[2017-12-16] MEDS: AMIODARONE 200 MG TAB PO SCH ×2 (09:03→21:04)
[2017-12-16] MEDS: MAGNESIUM HYDROXIDE SUSP 30 ML CUP PO SCH (09:04)
[2017-12-16] MEDS: POLYETHYLENE GLYCOL 17 GM PKG PO SCH (09:04)
[2017-12-16] MEDS: METOPROLOL TARTRATE 25 MG TAB PO SCH ×2 (09:04→21:04)
[2017-12-16] MEDS: SODIUM CHLORIDE 0.9% FLUSH 10 ML FLUSH IV FLUSH SCH ×2 (09:04→21:00)
--- NOTE | 2017-12-16 09:31 | PD.CAR.PN ---
CVT Progress Note Subjective/Hospital Course: 82y/o male with known h/o CAD s/p stent placement to RCA in the past presents with chest pain. . [place] the airport [place] when he experienced acute onset of chest pain radiating to the jaw. He went to the [place] ED and was found to have ST elevation in V leads. A STEMI alert was called and he waas transferred to the main campus for emergency left heart cath. This shows chronic LAD occlusion with collaterals from a diagonal with critical subtotal occlusion. His EF was 60% recently and is now ~20-25% with fairly global hypo/akinesis. He continues to have chest pain and Dr. Emanuel could not safely cross lesion for PCI. Plan emergent CABG. IABP placed by Dr Emanuel preop PMH: CAD, HX of RCA stent , HTN, HLP, SSS BPH preop HX ST elevation (STEMI) myocardial infarction Unstable angina Combined systolic and diastolic congestive heart failure, NYHA class 4 12/12 surgery : Emergency CABG x 2 COREY to LAD SVG to D1 L EVH crystalloid 4500cc, 750cc cell saver, EBL 1450 extubated after surgery 12/13 IABP 1: this am BP stable right groin prepped with chlorhexidine, IABP sutures removed under sterile technique Right IABP / with sheath removed / balloon intact / hemostasis obtained after 15 min / additional pressure then held by RN pressure dressing applied / pt tolerated well. To remain flat x 6 hours weaned off Insulin gtt pt had short burst vtach last evening , amiodarone bolus given / amiodarone po started , no further ectopy eval for transfer to stepdown later today 12/14 pt BP on lower side, creatinine up low urine outpt add 250cc NS, pt encouraged to increase po fluids for now bladder scan was on ly 150cc/ no further arrhythmia noted chest tube drained 190cc/ 12 hrs will leave in place today 12/15 leave chest tube in today / drained 170cc/ 12 hrs BP labile , will decrease dose of amiodarone no further evidence of Vtach consult Dr Elizabeth/ per Dr Emanuel for need for Life vest at discharge will not tolerate GABRIELA inhibitor at this time transfuse 2 units PRBC with lasix 12/16 Doing better Appreciate Urology input and assistance D/C CT today Discharge planning Objective: Vital Signs Date Time Temp Pulse Resp B/P (MAP) Pulse Ox O2 Delivery O2 Flow Rate FiO2 12/16/17 06:06 61 12/16/17 05:15 63 12/16/17 04:26 66 12/16/17 03:34 66 12/16/17 03:34 98.7 67 19 106/58 (74) 91 12/16/17 02:41 98.7 72 18 106/58 91 12/16/17 02:28 72 12/16/17 01:16 69 12/16/17 00:24 70 12/15/17 23:27 99.0 74 18 107/65 (79) 97 12/15/17 23:10 75 12/15/17 23:08 98.7 68 19 110/59 95 12/15/17 22:42 98.8 84 18 110/59 97 12/15/17 22:00 70 12/15/17 21:00 79 12/15/17 20:00 94 12/15/17 19:45 98.7 86 105/58 (74) 91 12/15/17 19:20 99.5 91 17 99/55 (70) 92 12/15/17 19:20 81 12/15/17 19:20 89 Nasal Cannula 2.00 12/15/17 19:07 99.5 91 18 99/55 92 12/15/17 18:00 74 12/15/17 17:00 72 12/15/17 16:00 70 12/15/17 15:30 97.8 68 18 117/59 (78) 94 12/15/17 15:30 68 12/15/17 15:00 74 12/15/17 14:00 78 12/15/17 13:00 76 12/15/17 12:00 70 12/15/17 11:30 84 12/15/17 11:30 98.3 84 18 104/58 (73) 97 12/15/17 11:00 82 12/15/17 10:00 70 Labs: Laboratory Tests Test 12/16/17 03:53 White Blood Count 12.2 TH/MM3 (4.0-11.0) Red Blood Count 3.25 MIL/MM3 (4.50-5.90) Hemoglobin 10.1 GM/DL (13.0-17.0) Hematocrit 29.9 % (39.0-51.0) Mean Corpuscular Volume 91.8 FL (80.0-100.0) Mean Corpuscular Hemoglobin 31.2 PG (27.0-34.0) Mean Corpuscular Hemoglobin Concent 33.9 % (32.0-36.0) Red Cell Distribution Width 14.6 % (11.6-17.2) Platelet Count 130 TH/MM3 (150-450) Mean Platelet Volume 9.7 FL (7.0-11.0) Blood Urea Nitrogen 33 MG/DL (7-18) Creatinine 1.78 MG/DL (0.60-1.30) Random Glucose 112 MG/DL (74-106) Calcium Level 7.9 MG/DL (8.5-10.1) Sodium Level 142 MEQ/L (136-145) Potassium Level 4.2 MEQ/L (3.5-5.1) Chloride Level 105 MEQ/L (98-107) Carbon Dioxide Level 27.5 MEQ/L (21.0-32.0) Anion Gap 10 MEQ/L (5-15) Estimat Glomerular Filtration Rate 37 ML/MIN (>89) Result Diagram: 12/16/17 0353 12/16/17 0353 (1) S/P CABG x 2 Plan: ASA, stain BB no diuretics on room air pulm toileting OOB ambulate 250cc NS bolus over on hour f/u labs in am (2) ST elevation (STEMI) myocardial infarction (3) Unstable angina (4) Combined systolic and diastolic congestive heart failure, NYHA class 4 Plan: consult Dr Clara arzate for Life vest at discharge GABRIELA when BP tolerates (5) Hyperlipemia Plan: on statin (6) BPH (benign prostatic hyperplasia) Plan: resume home meds (7) urinary retention Plan: Dr Frederick replaced soliz cath will leave in at discharge he will then need to follwed by Dr Mena for voiding trial Problem Qualifiers (1) ST elevation (STEMI) myocardial infarction: Qualified Codes: I21.3 - ST elevation (STEMI) myocardial infarction of unspecified site (2) Combined systolic and diastolic congestive heart failure, NYHA class 4: Qualified Codes: I50.41 - Acute combined systolic (congestive) and diastolic ( congestive) heart failure Jeanne May MD December 16, 2017 09:31
--- NOTE | 2017-12-16 10:02 | PD.CARD.PN ---
Subjective Subjective Remarks CONTINUES TO DO WELL. NO COMPLAINTS OF CHEST PAIN OR SOB CHEST TUBE REMAINS. S/P CABG X2, POD #4 Objective Medications Current Medications Medications (Trade) Dose Ordered Sig/Poly Route Start Time Stop Time Status Last Admin (Tylenol) 650 mg Q4H PRN PO 12/12/17 05:00 (Milk Of Magnesia Liq) 30 ml Q12H PRN PO 12/12/17 05:00 (Senokot) 17.2 mg Q12H PRN PO 12/12/17 05:00 (Dulcolax Supp) 10 mg DAILY PRN RECTAL 12/12/17 05:00 (Lactulose Liq) 30 ml DAILY PRN PO 12/12/17 05:00 (Pill Splitter) 1 ea UNSCH PRN OTHER 12/12/17 08:45 (NS Flush) 2 ml BID IV FLUSH 12/12/17 21:00 12/16/17 09:04 (NS Flush) 2 ml UNSCH PRN IV FLUSH 12/12/17 13:00 (Aspirin Chew) 81 mg DAILY PO 12/13/17 09:00 12/16/17 09:02 (Protonix) 40 mg DAILY@06 PO 12/13/17 06:00 12/16/17 06:46 (Tylenol) 650 mg Q4H PRN PO 12/12/17 13:00 (Zofran Odt) 4 mg Q6H PRN PO 12/12/17 13:00 12/14/17 08:43 (Apresoline Inj) 10 mg Q4H PRN IV PUSH 12/12/17 13:00 (Duoneb Neb) 1 ampule Q2HR NEB PRN NEB 12/12/17 13:00 (Lipitor) 80 mg HS PO 12/13/17 21:00 12/15/17 20:20 (Colace) 100 mg BID PO 12/13/17 21:00 12/16/17 09:02 (Theragran M Tab) 1 tab DAILY PO 12/14/17 09:00 12/16/17 09:02 (Milk Of Magnesia Liq) 30 ml DAILY PO 12/14/17 09:00 12/16/17 09:04 (Dulcolax Supp) 10 mg UNSCH PRN RECTAL 12/13/17 10:45 (Miralax) 17 gm DAILY PO 12/14/17 09:00 12/16/17 09:04 (Senokot) 8.6 mg HS PO 12/13/17 21:00 12/15/17 20:20 (Fleets Enema (Adult)) 118 ml UNSCH PRN RECTAL 12/13/17 10:45 (Lopressor) 12.5 mg BID PO 12/13/17 10:45 12/16/17 09:04 (D50w (Vial) Inj) 50 ml UNSCH PRN IV PUSH 12/13/17 10:45 (Glucagon Inj) 1 mg UNSCH PRN OTHER 12/13/17 10:45 (Flomax) 0.4 mg DAILY PO 12/14/17 09:00 12/16/17 09:01 (NovoLOG SUPPLEMENTAL SCALE) 1 ACHS SQ 12/14/17 12:00 12/15/17 17:41 (Cordarone) 400 mg Q12HR PO 12/14/17 21:00 12/16/17 09:03 ([place] 5-325 Mg) 1 tab Q4H PRN PO 12/14/17 14:45 12/16/17 02:43 Vital Signs / I&O Vital Signs Date Time Temp Pulse Resp B/P (MAP) Pulse Ox O2 Delivery O2 Flow Rate FiO2 12/16/17 06:06 61 12/16/17 05:15 63 12/16/17 04:26 66 12/16/17 03:34 66 12/16/17 03:34 98.7 67 19 106/58 (74) 91 12/16/17 02:41 98.7 72 18 106/58 91 12/16/17 02:28 72 12/16/17 01:16 69 12/16/17 00:24 70 12/15/17 23:27 99.0 74 18 107/65 (79) 97 12/15/17 23:10 75 12/15/17 23:08 98.7 68 19 110/59 95 12/15/17 22:42 98.8 84 18 110/59 97 12/15/17 22:00 70 12/15/17 21:00 79 12/15/17 20:00 94 12/15/17 19:45 98.7 86 105/58 (74) 91 12/15/17 19:20 99.5 91 17 99/55 (70) 92 12/15/17 19:20 81 12/15/17 19:20 89 Nasal Cannula 2.00 12/15/17 19:07 99.5 91 18 99/55 92 12/15/17 18:00 74 12/15/17 17:00 72 12/15/17 16:00 70 12/15/17 15:30 97.8 68 18 117/59 (78) 94 12/15/17 15:30 68 12/15/17 15:00 74 12/15/17 14:00 78 12/15/17 13:00 76 12/15/17 12:00 70 12/15/17 11:30 84 12/15/17 11:30 98.3 84 18 104/58 (73) 97 12/15/17 11:00 82 12/15/17 10:00 70 I/O 12/15/17 12/15/17 12/15/17 12/16/17 12/16/17 12/16/17 07:00 15:00 23:00 07:00 15:00 23:00 Intake Total 480 ml 1630 ml 1185 ml Output Total 245 ml 1950 ml 2580 ml Balance 235 ml -320 ml -1395 ml Intake Oral 480 ml 960 ml 760 ml Packed Cells 400 ml 400 ml Blood Product IV Normal Saline Flush 270 ml 25 ml Output Urine Total 75 ml 1750 ml 2510 ml Chest Tube Drainage Total 170 ml 200 ml 70 ml # Bowel Movements 0 0 Physical Exam NAD ANICTERIC, NAA FLAT JVD LUNGS WITH FEW BIBASILAR CRACKLES ABD SOFT EXTREMITIES WITHOUT EDEMA Laboratory Laboratory Tests Test 12/16/17 03:53 White Blood Count 12.2 TH/MM3 Red Blood Count 3.25 MIL/MM3 Hemoglobin 10.1 GM/DL Hematocrit 29.9 % Mean Corpuscular Volume 91.8 FL Mean Corpuscular Hemoglobin 31.2 PG Mean Corpuscular Hemoglobin Concent 33.9 % Red Cell Distribution Width 14.6 % Platelet Count 130 TH/MM3 Mean Platelet Volume 9.7 FL Blood Urea Nitrogen 33 MG/DL Creatinine 1.78 MG/DL Random Glucose 112 MG/DL Calcium Level 7.9 MG/DL Sodium Level 142 MEQ/L Potassium Level 4.2 MEQ/L Chloride Level 105 MEQ/L Carbon Dioxide Level 27.5 MEQ/L Anion Gap 10 MEQ/L Estimat Glomerular Filtration Rate 37 ML/MIN Assessment and Plan Problem List: (1) S/P CABG x 2 ICD Codes: Z95.1 - Presence of aortocoronary bypass graft Plan: CHEST TUBE MGT PER CT (2) ST elevation (STEMI) myocardial infarction ICD Codes: I21.3 - ST elevation (STEMI) myocardial infarction of unspecified site Status: Acute Plan: LIFE VEST ON DC MEDICATIONS REVIEWED (3) Unstable angina ICD Codes: I20.0 - Unstable angina Status: Acute (4) Combined systolic and diastolic congestive heart failure, NYHA class 4 ICD Codes: I50.40 - Unspecified combined systolic (congestive) and diastolic ( congestive) heart failure (5) Hyperlipemia ICD Codes: E78.5 - Hyperlipidemia, unspecified (6) BPH (benign prostatic hyperplasia) ICD Codes: N40.0 - Benign prostatic hyperplasia without lower urinary tract symptoms (7) urinary retention (8) Cardiomyopathy ICD Codes: I42.9 - Cardiomyopathy, unspecified Plan: LIFE VEST ON DC Problem Qualifiers (1) ST elevation (STEMI) myocardial infarction: Qualified Codes: I21.3 - ST elevation (STEMI) myocardial infarction of unspecified site (2) Combined systolic and diastolic congestive heart failure, NYHA class 4: Qualified Codes: I50.41 - Acute combined systolic (congestive) and diastolic ( congestive) heart failure Willard Elizabeth MD December 16, 2017 10:01
[2017-12-16] MEDS ORDERED: WALKER WHEELS/F1 MIS (13:46)
[2017-12-16] MEDS ORDERED: COMMODE 3-IN-11 MIS (13:48)
--- NOTE | 2017-12-16 13:51 | HHI.PR ---
Subjective Remarks no complains soliz in place- draining sinus on telemetry Objective Vitals Vital Signs Date Time Temp Pulse Resp B/P (MAP) Pulse Ox O2 Delivery O2 Flow Rate FiO2 12/16/17 13:00 82 12/16/17 12:00 72 12/16/17 11:15 98.0 70 18 118/68 (85) 93 12/16/17 11:00 64 12/16/17 10:00 70 12/16/17 09:00 72 12/16/17 08:00 74 12/16/17 07:30 98 Room Air 12/16/17 07:00 60 12/16/17 07:00 97.5 69 18 113/60 (77) 12/16/17 06:06 61 12/16/17 05:15 63 12/16/17 04:26 66 12/16/17 03:34 66 12/16/17 03:34 98.7 67 19 106/58 (74) 91 12/16/17 02:41 98.7 72 18 106/58 91 12/16/17 02:28 72 12/16/17 01:16 69 12/16/17 00:24 70 12/15/17 23:27 99.0 74 18 107/65 (79) 97 12/15/17 23:10 75 12/15/17 23:08 98.7 68 19 110/59 95 12/15/17 22:42 98.8 84 18 110/59 97 12/15/17 22:00 70 12/15/17 21:00 79 12/15/17 20:00 94 12/15/17 19:45 98.7 86 105/58 (74) 91 12/15/17 19:20 99.5 91 17 99/55 (70) 92 12/15/17 19:20 81 12/15/17 19:20 89 Nasal Cannula 2.00 12/15/17 19:07 99.5 91 18 99/55 92 12/15/17 18:00 74 12/15/17 17:00 72 12/15/17 16:00 70 12/15/17 15:30 97.8 68 18 117/59 (78) 94 12/15/17 15:30 68 12/15/17 15:00 74 12/15/17 14:00 78 I/O 12/15/17 12/15/17 12/15/17 12/16/17 12/16/17 12/16/17 07:00 15:00 23:00 07:00 15:00 23:00 Intake Total 480 ml 1630 ml 1185 ml Output Total 245 ml 1950 ml 2580 ml Balance 235 ml -320 ml -1395 ml Intake Oral 480 ml 960 ml 760 ml Packed Cells 400 ml 400 ml Blood Product IV Normal Saline Flush 270 ml 25 ml Output Urine Total 75 ml 1750 ml 2510 ml Chest Tube Drainage Total 170 ml 200 ml 70 ml # Bowel Movements 0 0 Result Diagram: 12/16/17 0353 12/16/17 0353 Imaging Last Impressions Chest X-Ray 12/13/17 0500 Signed Impressions: CONCLUSION: 1. Status post extubation and removal of nasogastric tube. 2. Left-sided chest tube with no pneumothorax. Objective Remarks anicteric right neck central line in place chest tube in place sinus on telemetry' abdomen- soft extremities no edema- elastic post op dresing in place- left leg soliz in place Procedures 12/12 CABG x 3 Urinary Catheter: Yes Assessment to: Continue Soliz insert reason: Obstruction/Retention Date of Insertion: December 15, 2017 A/P Assessment and Plan 82 years old male ACS S/P cath with severe vessel disease, required IABP- on cath S/P emergent CABG #2 - cardiology and Cardiothoracic surgery ff - continue meds- On Amidoarone, statins, BB and ASA CKI- ff BMP stable Acute urinary retention history of BPH - soliz placed 12/[address] Molina . continue Flomax - OP ff up with urology - home with soliz Acute anemia- post op - S/P transfusion 12/15 - H and H stable PT daily DC planning- home Dash Palacios MD December 16, 2017 13:51
--- NOTE | 2017-12-16 18:15 | RADRPT ---
EXAM DATE: 12/16/2017 6:08 PM EDT AGE/SEX: 82 years / Male INDICATIONS: Shortness of breath and chest pain. CLINICAL DATA: This is the patient's subsequent encounter. Patient reports that signs and symptoms h ave been present for 1 week and indicates a pain score of 4/10. MEDICAL/SURGICAL HISTORY: . Hypertension. Coronary artery disease. CABG. Coronary artery sten t. COMPARISON: [facility] – [place], CHEST SINGLE AP, 12/13/2017. . FINDINGS: Lungs are hypoaerated. There is bibasilar airspace disease. Left-sided chest tube and central venous catheter have been removed. There is no evidence of pneumothorax. Postsurgical changes following CABG are again noted. CONCLUSION: 1. No evidence of pneumothorax following chest tube removal. 2. Hypoaerated lungs with bibasilar airspace disease. Electronically signed by: Mauri Harper MD 12/16/2017 6:13 PM EDT
[2017-12-16] MEDS: TEMAZEPAM 7.5 MG CAP PO PRN (21:04)
[2017-12-16] MEDS: SENNOSIDES 8.6 MG TAB PO SCH (21:04)
[2017-12-16] MEDS: ATORVASTATIN 80 MG TAB PO SCH (21:04)
[2017-12-17] VITALS (22 sets, daily range): BP systolic 98–121; BP diastolic 57–67; PULSE 63–78; RESP 16–20; TEMP 97.9–98.8; O2SAT 93–97
[2017-12-17] MEDS: PANTOPRAZOLE SOD 40 MG DELAYED RELEASE TAB PO SCH (05:53)
[2017-12-17] MEDS: INSULIN ASPART SUPPLEMENTAL SCALE SQ SCH ×4 (08:00→21:00)
[2017-12-17] MEDS: MULTIVITAMINS/MINERALS THERAPEUTIC TAB PO SCH (08:54)
[2017-12-17] MEDS: DOCUSATE SODIUM 100 MG CAP PO SCH ×2 (08:55→21:18)
[2017-12-17] MEDS: ASPIRIN 81 MG CHEW TAB PO SCH (08:56)
[2017-12-17] MEDS: METOPROLOL TARTRATE 25 MG TAB PO SCH ×2 (08:56→21:19)
[2017-12-17] MEDS: TAMSULOSIN HCL 0.4 MG CAP PO SCH (08:56)
[2017-12-17] MEDS: AMIODARONE 200 MG TAB PO SCH ×2 (08:57→21:19)
[2017-12-17] MEDS: SODIUM CHLORIDE 0.9% FLUSH 10 ML FLUSH IV FLUSH SCH ×2 (08:58→21:19)
[2017-12-17] MEDS: MAGNESIUM HYDROXIDE SUSP 30 ML CUP PO SCH (08:59)
[2017-12-17] MEDS: POLYETHYLENE GLYCOL 17 GM PKG PO SCH (08:59)
[2017-12-17] MEDS: ONDANSETRON ODT 4 MG TAB PO PRN (10:07)
--- NOTE | 2017-12-17 10:25 | PD.CAR.PN ---
CVT Progress Note Subjective/Hospital Course: 82y/o male with known h/o CAD s/p stent placement to RCA in the past presents with chest pain. . [place] the [place] when he experienced acute onset of chest pain radiating to the jaw. He went to the [place] ED and was found to have ST elevation in V leads. A STEMI alert was called and he waas transferred to the main campus for emergency left heart cath. This shows chronic LAD occlusion with collaterals from a diagonal with critical subtotal occlusion. His EF was 60% recently and is now ~20-25% with fairly global hypo/akinesis. He continues to have chest pain and Dr. Emanuel could not safely cross lesion for PCI. Plan emergent CABG. IABP placed by Dr Emanuel preop PMH: CAD, HX of RCA stent , HTN, HLP, SSS BPH preop HX ST elevation (STEMI) myocardial infarction Unstable angina Combined systolic and diastolic congestive heart failure, NYHA class 4 12/12 surgery : Emergency CABG x 2 COREY to LAD SVG to D1 L EVH crystalloid 4500cc, 750cc cell saver, EBL 1450 extubated after surgery 12/13 IABP 1: this am BP stable right groin prepped with chlorhexidine, IABP sutures removed under sterile technique Right IABP / with sheath removed / balloon intact / hemostasis obtained after 15 min / additional pressure then held by RN pressure dressing applied / pt tolerated well. To remain flat x 6 hours weaned off Insulin gtt pt had short burst vtach last evening , amiodarone bolus given / amiodarone po started , no further ectopy eval for transfer to stepdown later today 12/14 pt BP on lower side, creatinine up low urine outpt add 250cc NS, pt encouraged to increase po fluids for now bladder scan was on ly 150cc/ no further arrhythmia noted chest tube drained 190cc/ 12 hrs will leave in place today 12/15 leave chest tube in today / drained 170cc/ 12 hrs BP labile , will decrease dose of amiodarone no further evidence of Vtach consult Dr Elizabeth/ per Dr Emanuel for need for Life vest at discharge will not tolerate GABRIELA inhibitor at this time transfuse 2 units PRBC with lasix 12/16 Doing better Appreciate Urology input and assistance D/C CT today Discharge planning 12/17 Doing well Anaya remains in place Discharge planning Objective: Vital Signs Date Time Temp Pulse Resp B/P (MAP) Pulse Ox O2 Delivery O2 Flow Rate FiO2 12/17/17 10:13 68 12/17/17 09:00 75 12/17/17 08:00 78 12/17/17 07:00 94 Room Air 12/17/17 07:00 97.9 78 18 121/67 (85) 94 12/17/17 07:00 77 12/17/17 06:07 70 12/17/17 05:07 67 12/17/17 04:06 69 12/17/17 03:40 98.8 73 18 98/58 (71) 93 12/17/17 03:19 64 12/17/17 02:15 70 12/17/17 01:14 65 12/17/17 00:32 68 12/16/17 23:27 62 12/16/17 23:27 98.1 63 17 91/55 (67) 94 12/16/17 22:52 64 12/16/17 21:41 64 12/16/17 20:20 60 12/16/17 19:40 98.0 68 18 106/59 (75) 92 12/16/17 19:30 92 Room Air 12/16/17 19:20 68 12/16/17 18:02 73 12/16/17 17:00 65 12/16/17 16:00 61 12/16/17 15:00 98.1 73 18 109/58 (75) 96 12/16/17 15:00 76 12/16/17 14:07 66 12/16/17 13:00 82 12/16/17 12:00 72 12/16/17 11:15 98.0 70 18 118/68 (85) 93 12/16/17 11:00 64 Result Diagram: 12/16/17 0353 12/16/17 0353 (1) S/P CABG x 2 Plan: CHEST TUBE MGT PER CT (2) ST elevation (STEMI) myocardial infarction Plan: LIFE VEST ON DC MEDICATIONS REVIEWED (3) Unstable angina (4) Combined systolic and diastolic congestive heart failure, NYHA class 4 (5) Hyperlipemia (6) BPH (benign prostatic hyperplasia) (7) urinary retention (8) Cardiomyopathy Plan: LIFE VEST ON DC Problem Qualifiers (1) ST elevation (STEMI) myocardial infarction: Qualified Codes: I21.3 - ST elevation (STEMI) myocardial infarction of unspecified site (2) Combined systolic and diastolic congestive heart failure, NYHA class 4: Qualified Codes: I50.41 - Acute combined systolic (congestive) and diastolic ( congestive) heart failure Jeanne May MD December 17, 2017 10:25
--- NOTE | 2017-12-17 11:26 | PD.CARD.PN ---
Subjective Subjective Remarks CONTINUES TO DO WELL. AT BEDSIDE NO COMPLAINTS OF CHEST PAIN OR SOB SOME NAUSEA THIS AM S/P CABG X2, POD #5 Objective Medications Current Medications Medications (Trade) Dose Ordered Sig/Poly Route Start Time Stop Time Status Last Admin (Tylenol) 650 mg Q4H PRN PO 12/12/17 05:00 (Milk Of Magnesia Liq) 30 ml Q12H PRN PO 12/12/17 05:00 (Senokot) 17.2 mg Q12H PRN PO 12/12/17 05:00 (Dulcolax Supp) 10 mg DAILY PRN RECTAL 12/12/17 05:00 (Lactulose Liq) 30 ml DAILY PRN PO 12/12/17 05:00 (Pill Splitter) 1 ea UNSCH PRN OTHER 12/12/17 08:45 (NS Flush) 2 ml BID IV FLUSH 12/12/17 21:00 12/17/17 08:58 (NS Flush) 2 ml UNSCH PRN IV FLUSH 12/12/17 13:00 (Aspirin Chew) 81 mg DAILY PO 12/13/17 09:00 12/17/17 08:56 (Protonix) 40 mg DAILY@06 PO 12/13/17 06:00 12/17/17 05:53 (Tylenol) 650 mg Q4H PRN PO 12/12/17 13:00 (Zofran Odt) 4 mg Q6H PRN PO 12/12/17 13:00 12/17/17 10:07 (Apresoline Inj) 10 mg Q4H PRN IV PUSH 12/12/17 13:00 (Duoneb Neb) 1 ampule Q2HR NEB PRN NEB 12/12/17 13:00 (Lipitor) 80 mg HS PO 12/13/17 21:00 12/16/17 21:04 (Colace) 100 mg BID PO 12/13/17 21:00 12/17/17 08:55 (Theragran M Tab) 1 tab DAILY PO 12/14/17 09:00 12/17/17 08:54 (Milk Of Magnesia Liq) 30 ml DAILY PO 12/14/17 09:00 12/16/17 09:04 (Dulcolax Supp) 10 mg UNSCH PRN RECTAL 12/13/17 10:45 (Miralax) 17 gm DAILY PO 12/14/17 09:00 12/16/17 09:04 (Senokot) 8.6 mg HS PO 12/13/17 21:00 12/16/17 21:04 (Fleets Enema (Adult)) 118 ml UNSCH PRN RECTAL 12/13/17 10:45 (Lopressor) 12.5 mg BID PO 12/13/17 10:45 12/17/17 08:56 (D50w (Vial) Inj) 50 ml UNSCH PRN IV PUSH 12/13/17 10:45 (Glucagon Inj) 1 mg UNSCH PRN OTHER 12/13/17 10:45 (Flomax) 0.4 mg DAILY PO 12/14/17 09:00 12/17/17 08:56 (NovoLOG SUPPLEMENTAL SCALE) 1 ACHS SQ 12/14/17 12:00 12/17/17 08:00 (Cordarone) 400 mg Q12HR PO 12/14/17 21:00 12/17/17 08:57 ([place] 5-325 Mg) 1 tab Q4H PRN PO 12/14/17 14:45 12/16/17 17:18 (Restoril) 7.5 mg HS PRN PO 12/16/17 21:00 12/16/17 21:04 Vital Signs / I&O Vital Signs Date Time Temp Pulse Resp B/P (MAP) Pulse Ox O2 Delivery O2 Flow Rate FiO2 12/17/17 10:13 68 12/17/17 09:00 75 12/17/17 08:00 78 12/17/17 07:00 94 Room Air 12/17/17 07:00 97.9 78 18 121/67 (85) 94 12/17/17 07:00 77 12/17/17 06:07 70 12/17/17 05:07 67 12/17/17 04:06 69 12/17/17 03:40 98.8 73 18 98/58 (71) 93 12/17/17 03:19 64 12/17/17 02:15 70 12/17/17 01:14 65 12/17/17 00:32 68 12/16/17 23:27 62 12/16/17 23:27 98.1 63 17 91/55 (67) 94 12/16/17 22:52 64 12/16/17 21:41 64 12/16/17 20:20 60 12/16/17 19:40 98.0 68 18 106/59 (75) 92 12/16/17 19:30 92 Room Air 12/16/17 19:20 68 12/16/17 18:02 73 12/16/17 17:00 65 12/16/17 16:00 61 12/16/17 15:00 98.1 73 18 109/58 (75) 96 12/16/17 15:00 76 12/16/17 14:07 66 12/16/17 13:00 82 12/16/17 12:00 72 I/O 12/16/17 12/16/17 12/16/17 12/17/17 12/17/17 12/17/17 07:00 15:00 23:00 07:00 15:00 23:00 Intake Total 1185 ml 920 ml 480 ml Output Total 2580 ml 975 ml 700 ml Balance -1395 ml -55 ml -220 ml Intake Oral 760 ml 920 ml 480 ml Packed Cells 400 ml Blood Product IV Normal Saline Flush 25 ml Output Urine Total 2510 ml 975 ml 700 ml Chest Tube Drainage Total 70 ml Physical Exam PLEASANT, NAD ANICTERIC, NAA FLAT JVD LUNGS WITH FEW BIBASILAR CRACKLES ABD SOFT EXTREMITIES WITHOUT EDEMA Assessment and Plan Problem List: (1) S/P CABG x 2 ICD Codes: Z95.1 - Presence of aortocoronary bypass graft (2) ST elevation (STEMI) myocardial infarction ICD Codes: I21.3 - ST elevation (STEMI) myocardial infarction of unspecified site Status: Acute (3) Unstable angina ICD Codes: I20.0 - Unstable angina Status: Acute (4) Combined systolic and diastolic congestive heart failure, NYHA class 4 ICD Codes: I50.40 - Unspecified combined systolic (congestive) and diastolic ( congestive) heart failure (5) Hyperlipemia ICD Codes: E78.5 - Hyperlipidemia, unspecified (6) BPH (benign prostatic hyperplasia) ICD Codes: N40.0 - Benign prostatic hyperplasia without lower urinary tract symptoms (7) urinary retention (8) Cardiomyopathy ICD Codes: I42.9 - Cardiomyopathy, unspecified Plan: LVEF 25% WILL NEED LIFE VEST ON DISCHARGE Problem Qualifiers (1) ST elevation (STEMI) myocardial infarction: Qualified Codes: I21.3 - ST elevation (STEMI) myocardial infarction of unspecified site (2) Combined systolic and diastolic congestive heart failure, NYHA class 4: Qualified Codes: I50.41 - Acute combined systolic (congestive) and diastolic ( congestive) heart failure Willard Elizabeth MD December 17, 2017 11:26
--- NOTE | 2017-12-17 13:32 | HHI.PR ---
Subjective Remarks up on chair good po- earlier had some nausea- reflux like symptoms had BM + flatus telemetry- sinus Objective Vitals Vital Signs Date Time Temp Pulse Resp B/P (MAP) Pulse Ox O2 Delivery O2 Flow Rate FiO2 12/17/17 13:11 70 12/17/17 12:00 71 12/17/17 11:00 65 12/17/17 11:00 98.2 68 20 104/62 (76) 97 12/17/17 10:13 68 12/17/17 09:00 75 12/17/17 08:00 78 12/17/17 07:00 94 Room Air 12/17/17 07:00 97.9 78 18 121/67 (85) 94 12/17/17 07:00 77 12/17/17 06:07 70 12/17/17 05:07 67 12/17/17 04:06 69 12/17/17 03:40 98.8 73 18 98/58 (71) 93 12/17/17 03:19 64 12/17/17 02:15 70 12/17/17 01:14 65 12/17/17 00:32 68 12/16/17 23:27 62 12/16/17 23:27 98.1 63 17 91/55 (67) 94 12/16/17 22:52 64 12/16/17 21:41 64 12/16/17 20:20 60 12/16/17 19:40 98.0 68 18 106/59 (75) 92 12/16/17 19:30 92 Room Air 12/16/17 19:20 68 12/16/17 18:02 73 12/16/17 17:00 65 12/16/17 16:00 61 12/16/17 15:00 98.1 73 18 109/58 (75) 96 12/16/17 15:00 76 12/16/17 14:07 66 I/O 12/16/17 12/16/17 12/16/17 12/17/17 12/17/17 12/17/17 07:00 15:00 23:00 07:00 15:00 23:00 Intake Total 1185 ml 920 ml 480 ml Output Total 2580 ml 975 ml 700 ml Balance -1395 ml -55 ml -220 ml Intake Oral 760 ml 920 ml 480 ml Packed Cells 400 ml Blood Product IV Normal Saline Flush 25 ml Output Urine Total 2510 ml 975 ml 700 ml Chest Tube Drainage Total 70 ml Result Diagram: 12/16/17 0353 12/16/17 0353 Imaging Last Impressions Chest X-Ray 12/16/17 0000 Signed Impressions: CONCLUSION: 1. No evidence of pneumothorax following chest tube removal. 2. Hypoaerated lungs with bibasilar airspace disease. Objective Remarks anicteric no rales sinus on telemetry' abdomen- soft extremities no edema- elastic post op dressing in place- left leg soliz in place Procedures 12/12 CABG x 3 Urinary Catheter: Yes Assessment to: Continue Soliz insert reason: Obstruction/Retention Date of Insertion: December 15, 2017 A/P Assessment and Plan 82 years old male ACS S/P cath with severe vessel disease, required IABP- on cath S/P emergent CABG #2 - cardiology and Cardiothoracic surgery ff - continue meds- On Amidoarone, statins, BB and ASA CKI- ff BMP stable Acute urinary retention history of BPH - soliz placed 12/[address] Molina . continue Flomax - OP ff up with urology - DC with soliz Acute anemia- post op - S/P transfusion 12/15 - H and H stable PT daily DC planning- home Dash Palacios MD December 17, 2017 13:32
[2017-12-17] MEDS: SENNOSIDES 8.6 MG TAB PO SCH (21:18)
[2017-12-17] MEDS: ATORVASTATIN 80 MG TAB PO SCH (21:18)
[2017-12-17] MEDS: ACETAMINOPHEN/HYDROcodone 325 MG/5 MG TAB PO PRN (21:19)
[2017-12-18] VITALS (19 sets, daily range): BP systolic 103–119; BP diastolic 56–61; PULSE 64–92; RESP 16–18; TEMP 98–98.6; O2SAT 93–99
[2017-12-18 06:02] LABS: HEMATOCRIT 28.9 % (39.0-51.0); HEMOGLOBIN 9.9 GM/DL (13.0-17.0); MEAN CELL VOLUME 92.3 FL (80.0-100.0); MEAN CORPUSCULAR HEMOGLOBIN 31.6 PG (27.0-34.0); MEAN CORPUSCULAR HGB CONC 34.2 % (32.0-36.0); MEAN PLATELET VOLUME 9.1 FL (7.0-11.0); PLATELET COUNT 216 TH/MM3 (150-450); RED BLOOD COUNT 3.13 MIL/MM3 (4.50-5.90)
[2017-12-18] MEDS: PANTOPRAZOLE SOD 40 MG DELAYED RELEASE TAB PO SCH (06:19)
--- NOTE | 2017-12-18 07:55 | PD.CAR.PN ---
CVT Progress Note Subjective/Hospital Course: 82y/o male with known h/o CAD s/p stent placement to RCA in the past presents with chest pain. . [place] the [place] when he experienced acute onset of chest pain radiating to the jaw. He went to the [facility] and was found to have ST elevation in V leads. A STEMI alert was called and he waas transferred to the main campus for emergency left heart cath. This shows chronic LAD occlusion with collaterals from a diagonal with critical subtotal occlusion. His EF was 60% recently and is now ~20-25% with fairly global hypo/akinesis. He continues to have chest pain and Dr. Emanuel could not safely cross lesion for PCI. Plan emergent CABG. IABP placed by Dr Emanuel preop PMH: CAD, HX of RCA stent , HTN, HLP, SSS BPH preop HX ST elevation (STEMI) myocardial infarction Unstable angina Combined systolic and diastolic congestive heart failure, NYHA class 4 12/12 surgery : Emergency CABG x 2 COREY to LAD SVG to D1 L EVH crystalloid 4500cc, 750cc cell saver, EBL 1450 extubated after surgery 12/13 IABP 1: this am BP stable right groin prepped with chlorhexidine, IABP sutures removed under sterile technique Right IABP / with sheath removed / balloon intact / hemostasis obtained after 15 min / additional pressure then held by RN pressure dressing applied / pt tolerated well. To remain flat x 6 hours weaned off Insulin gtt pt had short burst vtach last evening , amiodarone bolus given / amiodarone po started , no further ectopy eval for transfer to stepdown later today 12/14 pt BP on lower side, creatinine up low urine outpt add 250cc NS, pt encouraged to increase po fluids for now bladder scan was on ly 150cc/ no further arrhythmia noted chest tube drained 190cc/ 12 hrs will leave in place today 12/15 leave chest tube in today / drained 170cc/ 12 hrs BP labile , will decrease dose of amiodarone no further evidence of Vtach consult Dr Elizabeth/ per Dr Emanuel for need for Life vest at discharge will not tolerate GABRIELA inhibitor at this time transfuse 2 units PRBC with lasix 12/16 Doing better Appreciate Urology input and assistance D/C CT today Discharge planning 12/17 Doing well Anaya remains in place Discharge planning 12/18 Doing well If LifeVest can be arranged for today, OK to discharge from my standpoint Objective: Vital Signs Date Time Temp Pulse Resp B/P (MAP) Pulse Ox O2 Delivery O2 Flow Rate FiO2 12/18/17 06:00 85 12/18/17 03:00 66 12/18/17 03:00 98.2 74 16 119/59 (79) 94 12/17/17 23:00 63 12/17/17 23:00 98.3 72 16 117/57 (77) 95 12/17/17 19:00 98.3 74 17 118/65 (82) 94 12/17/17 19:00 77 12/17/17 19:00 94 Room Air 12/17/17 18:00 70 12/17/17 17:00 76 12/17/17 16:00 66 12/17/17 15:00 98.0 72 18 106/59 (75) 96 12/17/17 15:00 75 12/17/17 14:00 65 12/17/17 13:11 70 12/17/17 12:00 71 12/17/17 11:00 65 12/17/17 11:00 98.2 68 20 104/62 (76) 97 12/17/17 10:13 68 12/17/17 09:00 75 12/17/17 08:00 78 Labs: Laboratory Tests Test 12/18/17 05:03 White Blood Count 10.0 TH/MM3 (4.0-11.0) Red Blood Count 3.13 MIL/MM3 (4.50-5.90) Hemoglobin 9.9 GM/DL (13.0-17.0) Hematocrit 28.9 % (39.0-51.0) Mean Corpuscular Volume 92.3 FL (80.0-100.0) Mean Corpuscular Hemoglobin 31.6 PG (27.0-34.0) Mean Corpuscular Hemoglobin Concent 34.2 % (32.0-36.0) Red Cell Distribution Width 14.0 % (11.6-17.2) Platelet Count 216 TH/MM3 (150-450) Mean Platelet Volume 9.1 FL (7.0-11.0) Result Diagram: 12/18/17 2408 12/16/17 1061 (1) S/P CABG x 2 (2) ST elevation (STEMI) myocardial infarction (3) Unstable angina (4) Combined systolic and diastolic congestive heart failure, NYHA class 4 (5) Hyperlipemia (6) BPH (benign prostatic hyperplasia) (7) urinary retention (8) Cardiomyopathy Plan: LVEF 25% WILL NEED LIFE VEST ON DISCHARGE Problem Qualifiers (1) ST elevation (STEMI) myocardial infarction: Qualified Codes: I21.3 - ST elevation (STEMI) myocardial infarction of unspecified site (2) Combined systolic and diastolic congestive heart failure, NYHA class 4: Qualified Codes: I50.41 - Acute combined systolic (congestive) and diastolic ( congestive) heart failure Jeanne May MD December 18, 2017 07:55
--- NOTE | 2017-12-18 09:17 | HHI.PR ---
Subjective Remarks in SR no complains wanting to go home wea are waiting for the Life vest Objective Vitals Vital Signs Date Time Temp Pulse Resp B/P (MAP) Pulse Ox O2 Delivery O2 Flow Rate FiO2 12/18/17 06:00 85 12/18/17 03:00 66 12/18/17 03:00 98.2 74 16 119/59 (79) 94 12/17/17 23:00 63 12/17/17 23:00 98.3 72 16 117/57 (77) 95 12/17/17 19:00 98.3 74 17 118/65 (82) 94 12/17/17 19:00 77 12/17/17 19:00 94 Room Air 12/17/17 18:00 70 12/17/17 17:00 76 12/17/17 16:00 66 12/17/17 15:00 98.0 72 18 106/59 (75) 96 12/17/17 15:00 75 12/17/17 14:00 65 12/17/17 13:11 70 12/17/17 12:00 71 12/17/17 11:00 65 12/17/17 11:00 98.2 68 20 104/62 (76) 97 12/17/17 10:13 68 I/O 12/17/17 12/17/17 12/17/17 12/18/17 12/18/17 12/18/17 07:00 15:00 23:00 07:00 15:00 23:00 Intake Total 480 ml 840 ml 440 ml Output Total 700 ml 875 ml 780 ml Balance -220 ml -35 ml -340 ml Intake Oral 480 ml 840 ml 440 ml Output Urine Total 700 ml 875 ml 780 ml # Bowel Movements 1 2 Result Diagram: 12/18/17 0503 12/16/17 0353 Imaging Last Impressions Chest X-Ray 12/16/17 0000 Signed Impressions: CONCLUSION: 1. No evidence of pneumothorax following chest tube removal. 2. Hypoaerated lungs with bibasilar airspace disease. Objective Remarks anicteric no rales, clear sterna- Prevena dressing in plac sinus on telemetry' abdomen- soft extremities no edema- elastic post op dressing in place- left leg soliz in place Procedures 12/12 CABG x 3 Urinary Catheter: Yes Assessment to: Continue Soliz insert reason: Obstruction/Retention Date of Insertion: December 15, 2017 A/P Assessment and Plan 82 years old male ACS S/P cath with severe vessel disease, required IABP- on cath S/P emergent CABG - cardiology and Cardiothoracic surgery ff - continue meds- On Amidoarone, statins, BB and ASA CKI- ff BMP stable Acute urinary retention history of BPH - soliz placed 12/[address] Molina . continue Flomax - DC home with soliz - OP ff up with his Urologist- Dr. Irwin Acute anemia- post op - S/P transfusion 12/15 - H and H stable DC planning- home with home ehalth waiting for Life vest to be delivered OP ff up with PCP- Dr. Marion FF up with Cardiology- Dr. Emanuel OP ff up with CTS OP ff up with his Urologist- Dash Millard MD December 18, 2017 09:17
[2017-12-18] MEDS ORDERED: AMIO200T PO (09:19)
[2017-12-18] MEDS ORDERED: METO25TA3 PO (09:19)
[2017-12-18] MEDS ORDERED: TAMS5CAP PO (09:19)
--- NOTE | 2017-12-18 09:43 | PD.CARD.PN ---
Subjective Subjective Remarks CONTINUES TO DO WELL. NO COMPLAINTS OF CHEST PAIN COMFORTABLE RESPIRATIONS ON ROOM AIR AWAIT LIFE VEST ON DC Objective Medications Current Medications Medications (Trade) Dose Ordered Sig/Poly Route Start Time Stop Time Status Last Admin (Tylenol) 650 mg Q4H PRN PO 12/12/17 05:00 (Milk Of Magnesia Liq) 30 ml Q12H PRN PO 12/12/17 05:00 (Senokot) 17.2 mg Q12H PRN PO 12/12/17 05:00 (Dulcolax Supp) 10 mg DAILY PRN RECTAL 12/12/17 05:00 (Lactulose Liq) 30 ml DAILY PRN PO 12/12/17 05:00 (Pill Splitter) 1 ea UNSCH PRN OTHER 12/12/17 08:45 (NS Flush) 2 ml BID IV FLUSH 12/12/17 21:00 12/17/17 21:19 (NS Flush) 2 ml UNSCH PRN IV FLUSH 12/12/17 13:00 (Aspirin Chew) 81 mg DAILY PO 12/13/17 09:00 12/17/17 08:56 (Protonix) 40 mg DAILY@06 PO 12/13/17 06:00 12/18/17 06:19 (Tylenol) 650 mg Q4H PRN PO 12/12/17 13:00 (Zofran Odt) 4 mg Q6H PRN PO 12/12/17 13:00 12/17/17 10:07 (Apresoline Inj) 10 mg Q4H PRN IV PUSH 12/12/17 13:00 (Duoneb Neb) 1 ampule Q2HR NEB PRN NEB 12/12/17 13:00 (Lipitor) 80 mg HS PO 12/13/17 21:00 12/17/17 21:18 (Colace) 100 mg BID PO 12/13/17 21:00 12/17/17 21:18 (Theragran M Tab) 1 tab DAILY PO 12/14/17 09:00 12/17/17 08:54 (Milk Of Magnesia Liq) 30 ml DAILY PO 12/14/17 09:00 12/16/17 09:04 (Dulcolax Supp) 10 mg UNSCH PRN RECTAL 12/13/17 10:45 (Miralax) 17 gm DAILY PO 12/14/17 09:00 12/16/17 09:04 (Senokot) 8.6 mg HS PO 12/13/17 21:00 12/17/17 21:18 (Fleets Enema (Adult)) 118 ml UNSCH PRN RECTAL 12/13/17 10:45 (Lopressor) 12.5 mg BID PO 12/13/17 10:45 12/17/17 21:19 (D50w (Vial) Inj) 50 ml UNSCH PRN IV PUSH 12/13/17 10:45 (Glucagon Inj) 1 mg UNSCH PRN OTHER 12/13/17 10:45 (Flomax) 0.4 mg DAILY PO 12/14/17 09:00 12/17/17 08:56 (NovoLOG SUPPLEMENTAL SCALE) 1 ACHS SQ 12/14/17 12:00 12/17/17 21:00 (Cordarone) 400 mg Q12HR PO 12/14/17 21:00 12/17/17 21:19 (Sarona 5-325 Mg) 1 tab Q4H PRN PO 12/14/17 14:45 12/17/17 21:19 (Restoril) 7.5 mg HS PRN PO 12/16/17 21:00 12/16/17 21:04 Vital Signs / I&O Vital Signs Date Time Temp Pulse Resp B/P (MAP) Pulse Ox O2 Delivery O2 Flow Rate FiO2 12/18/17 06:00 85 12/18/17 03:00 66 12/18/17 03:00 98.2 74 16 119/59 (79) 94 12/17/17 23:00 63 12/17/17 23:00 98.3 72 16 117/57 (77) 95 12/17/17 19:00 98.3 74 17 118/65 (82) 94 12/17/17 19:00 77 12/17/17 19:00 94 Room Air 12/17/17 18:00 70 12/17/17 17:00 76 12/17/17 16:00 66 12/17/17 15:00 98.0 72 18 106/59 (75) 96 12/17/17 15:00 75 12/17/17 14:00 65 12/17/17 13:11 70 12/17/17 12:00 71 12/17/17 11:00 65 12/17/17 11:00 98.2 68 20 104/62 (76) 97 12/17/17 10:13 68 I/O 12/17/17 12/17/17 12/17/17 12/18/17 12/18/17 12/18/17 07:00 15:00 23:00 07:00 15:00 23:00 Intake Total 480 ml 840 ml 440 ml Output Total 700 ml 875 ml 780 ml Balance -220 ml -35 ml -340 ml Intake Oral 480 ml 840 ml 440 ml Output Urine Total 700 ml 875 ml 780 ml # Bowel Movements 1 2 Physical Exam PLEASANT, NAD ANICTERIC, NAA FLAT JVD LUNGS WITH FEW BIBASILAR CRACKLES RRR, NO M/G/R ABD SOFT EXTREMITIES WITHOUT EDEMA Laboratory Laboratory Tests Test 12/18/17 05:03 White Blood Count 10.0 TH/MM3 Red Blood Count 3.13 MIL/MM3 Hemoglobin 9.9 GM/DL Hematocrit 28.9 % Mean Corpuscular Volume 92.3 FL Mean Corpuscular Hemoglobin 31.6 PG Mean Corpuscular Hemoglobin Concent 34.2 % Red Cell Distribution Width 14.0 % Platelet Count 216 TH/MM3 Mean Platelet Volume 9.1 FL Assessment and Plan Problem List: (1) S/P CABG x 2 ICD Codes: Z95.1 - Presence of aortocoronary bypass graft Status: Acute (2) ST elevation (STEMI) myocardial infarction ICD Codes: I21.3 - ST elevation (STEMI) myocardial infarction of unspecified site Status: Resolved (3) Unstable angina ICD Codes: I20.0 - Unstable angina Status: Acute (4) Combined systolic and diastolic congestive heart failure, NYHA class 4 ICD Codes: I50.40 - Unspecified combined systolic (congestive) and diastolic ( congestive) heart failure Status: Resolved (5) Hyperlipemia ICD Codes: E78.5 - Hyperlipidemia, unspecified Status: Chronic (6) BPH (benign prostatic hyperplasia) ICD Codes: N40.0 - Benign prostatic hyperplasia without lower urinary tract symptoms Status: Chronic (7) urinary retention Status: Resolved (8) Cardiomyopathy ICD Codes: I42.9 - Cardiomyopathy, unspecified Status: Acute Assessment and Plan MEDICATIONS REVIEWED TO BE DC'D WITH LIFE VEST INSTRUCTED TO FOLLOW- UP WITH DR MCGEE IN 1-2 WEEKS AFTER DC Problem Qualifiers (1) ST elevation (STEMI) myocardial infarction: Qualified Codes: I21.3 - ST elevation (STEMI) myocardial infarction of unspecified site (2) Combined systolic and diastolic congestive heart failure, NYHA class 4: Qualified Codes: I50.41 - Acute combined systolic (congestive) and diastolic ( congestive) heart failure Willard Elizabeth MD December 18, 2017 09:43
[2017-12-18] MEDS: MULTIVITAMINS/MINERALS THERAPEUTIC TAB PO SCH (10:21)
[2017-12-18] MEDS: ASPIRIN 81 MG CHEW TAB PO SCH (10:23)
[2017-12-18] MEDS: TAMSULOSIN HCL 0.4 MG CAP PO SCH (10:23)
[2017-12-18] MEDS: METOPROLOL TARTRATE 25 MG TAB PO SCH ×2 (10:23→20:51)
[2017-12-18] MEDS: DOCUSATE SODIUM 100 MG CAP PO SCH ×2 (10:24→20:52)
[2017-12-18] MEDS: MAGNESIUM HYDROXIDE SUSP 30 ML CUP PO SCH (10:24)
[2017-12-18] MEDS: SODIUM CHLORIDE 0.9% FLUSH 10 ML FLUSH IV FLUSH SCH ×2 (10:24→20:51)
[2017-12-18] MEDS: POLYETHYLENE GLYCOL 17 GM PKG PO SCH (10:24)
[2017-12-18] MEDS: AMIODARONE 200 MG TAB PO SCH ×2 (10:24→20:51)
[2017-12-18] MEDS: INSULIN ASPART SUPPLEMENTAL SCALE SQ SCH ×4 (10:30→21:35)
--- NOTE | 2017-12-18 13:47 | HHI.FF ---
Face to Face Verification Diagnosis: (1) urinary retention (2) S/P CABG x 2 Home Health Nursing Order: Medical education Signs/symptoms of disease process Nursing assessment with vital signs Anaya catheter maintenance Supervisor Landscape Order: To Evaluate: Support services I have seen patient Zeeshan Perera on 12/18/17. My clinical findings support the need for the requested home health care services because: Infection w/ risk of complications I certify that my clinical findings support that this patient is homebound because: Need for psychosocial assistance Dash Palacios MD December 18, 2017 13:47
[2017-12-18] MEDS: ATORVASTATIN 80 MG TAB PO SCH (20:51)
[2017-12-18] MEDS: ACETAMINOPHEN/HYDROcodone 325 MG/5 MG TAB PO PRN (20:52)
[2017-12-18] MEDS: SENNOSIDES 8.6 MG TAB PO SCH (21:00)
[2017-12-18] MEDS: TEMAZEPAM 7.5 MG CAP PO PRN (23:34)
[2017-12-19] VITALS (20 sets, daily range): BP systolic 102–123; BP diastolic 57–63; PULSE 62–76; RESP 15–16; TEMP 98.1–98.3; O2SAT 94–97
[2017-12-19] MEDS: PANTOPRAZOLE SOD 40 MG DELAYED RELEASE TAB PO SCH (05:28)
[2017-12-19] MEDS: ACETAMINOPHEN/HYDROcodone 325 MG/5 MG TAB PO PRN (08:24)
[2017-12-19] MEDS: AMIODARONE 200 MG TAB PO SCH (08:24)
[2017-12-19] MEDS: MULTIVITAMINS/MINERALS THERAPEUTIC TAB PO SCH (08:24)
[2017-12-19] MEDS: TAMSULOSIN HCL 0.4 MG CAP PO SCH (08:24)
[2017-12-19] MEDS: SODIUM CHLORIDE 0.9% FLUSH 10 ML FLUSH IV FLUSH SCH (08:25)
[2017-12-19] MEDS: INSULIN ASPART SUPPLEMENTAL SCALE SQ SCH ×3 (08:25→17:00)
[2017-12-19] MEDS: METOPROLOL TARTRATE 25 MG TAB PO SCH (08:25)
[2017-12-19] MEDS: ASPIRIN 81 MG CHEW TAB PO SCH (08:25)
[2017-12-19] MEDS: DOCUSATE SODIUM 100 MG CAP PO SCH (08:26)
[2017-12-19] MEDS: POLYETHYLENE GLYCOL 17 GM PKG PO SCH (08:26)
[2017-12-19] MEDS: MAGNESIUM HYDROXIDE SUSP 30 ML CUP PO SCH (08:26)
[2017-12-19] MEDS ORDERED: PILL SPLITTER OTHER PRN (09:00)
[2017-12-19] MEDS ORDERED: DEFIB EXTERNAL (09:26)
--- NOTE | 2017-12-19 10:06 | HHI.PR ---
Subjective Remarks Currently is having diarrhea. And very loose stools Await [facility] Has some abdominal distention We will add some simethicone Discussed with patient and RN Possible discharge later today Objective Vitals Vital Signs Date Time Temp Pulse Resp B/P (MAP) Pulse Ox O2 Delivery O2 Flow Rate FiO2 12/19/17 09:00 68 12/19/17 08:00 76 12/19/17 08:00 98.1 73 15 107/60 (76) 95 12/19/17 07:00 70 12/19/17 06:10 65 12/19/17 05:09 65 12/19/17 04:42 98.2 75 106/61 (76) 95 12/19/17 04:03 70 12/19/17 03:15 66 12/19/17 02:24 70 12/19/17 01:19 66 12/19/17 00:52 98.3 73 102/57 (72) 94 12/19/17 00:35 69 12/18/17 23:00 70 12/18/17 22:00 80 12/18/17 21:00 86 12/18/17 20:00 84 12/18/17 19:00 98.6 85 115/60 (78) 93 12/18/17 19:00 86 12/18/17 18:00 86 12/18/17 17:00 84 12/18/17 16:00 74 12/18/17 15:00 98.0 77 16 115/58 (77) 95 12/18/17 15:00 75 12/18/17 14:00 67 12/18/17 13:00 80 12/18/17 12:00 66 12/18/17 11:00 98.1 69 18 109/61 (77) 99 12/18/17 11:00 99 Room Air 12/18/17 11:00 68 I/O 12/18/17 12/18/17 12/18/17 12/19/17 12/19/17 12/19/17 07:00 15:00 23:00 07:00 15:00 23:00 Intake Total 440 ml 700 ml 480 ml Output Total 780 ml 400 ml 400 ml Balance -340 ml 300 ml 80 ml Intake Oral 440 ml 700 ml 480 ml Output Urine Total 780 ml 400 ml 400 ml # Bowel Movements 2 1 Result Diagram: 12/18/17 0503 12/16/17 0353 Other Results Laboratory Tests Test 12/18/17 05:03 White Blood Count 10.0 TH/MM3 Red Blood Count 3.13 MIL/MM3 Hemoglobin 9.9 GM/DL Hematocrit 28.9 % Mean Corpuscular Volume 92.3 FL Mean Corpuscular Hemoglobin 31.6 PG Mean Corpuscular Hemoglobin Concent 34.2 % Red Cell Distribution Width 14.0 % Platelet Count 216 TH/MM3 Mean Platelet Volume 9.1 FL Imaging Last Impressions Chest X-Ray 12/16/17 0000 Signed Impressions: CONCLUSION: 1. No evidence of pneumothorax following chest tube removal. 2. Hypoaerated lungs with bibasilar airspace disease. Objective Remarks GENERAL: Awake alert and oriented 3 talkative and cooperative SKIN: Warm and dry. Chest area is dressed HEAD: Atraumatic. Normocephalic. EYES: Pupils equal and round. No scleral icterus. No injection or drainage. Extraocular muscles intact ENT: No nasal bleeding or discharge. Mucous membranes pink and moist. Tongue is midline NECK: Trachea midline. No JVD. Supple CARDIOVASCULAR: Regular rate and rhythm. S1-S2 no S3 or S4 RESPIRATORY: No accessory muscle use. Clear to auscultation. Breath sounds equal bilaterally. GASTROINTESTINAL: Abdomen soft, non-tender, nondistended. Hepatic and splenic margins not palpable. MUSCULOSKELETAL: Extremities without clubbing, cyanosis, or edema. No obvious deformities. NEUROLOGICAL: Awake and alert. No obvious cranial nerve deficits. Motor grossly within normal limits. 4 out of 5 muscle strength in the arms and legs. Normal speech. PSYCHIATRIC: Appropriate mood and affect; insight and judgment normal. Procedures 12/12 CABG x 3 Medications and IVs Current Medications Aspirin (Aspirin Chew) 81 mg ONCE ONCE PO Last administered on 12/12/17at 04:09 ; Start 12/12/17 at 04:00; Stop 12/12/17 at 04:01; Status DC Nitroglycerin (Nitroglycerin 2% Oint) 1 inch ONCE ONCE TOP Last administered on 12/12/17at 04:07; Start 12/12/17 at 04:00; Stop 12/12/17 at 13:04; Status DC Sodium Chloride (NS Flush) 2 ml UNSCH PRN IVF FLUSH AFTER USING IV ACCESS; Start 12/12/17 at 04:00; Stop 12/12/17 at 04:56; Status DC Ondansetron HCl (Zofran Odt) 4 mg ONCE ONCE PO Last administered on at 04:07; Start 12/12/17 at 04:00; Stop 12/12/17 at 04:01; Status DC Heparin Sodium (Porcine) (Heparin Inj) 4,000 units ONCE ONCE IV Last administered on 12/12/17at 05:13; Start 12/12/17 at 05:00; Stop 12/12/17 at 05:01 ; Status DC Heparin Sodium (Porcine) (Heparin Inj) 5,000 units UNSCH PRN IV APTT LESS THAN 25; Start 12/12/17 at 11:00; Stop 12/12/17 at 13:04; Status DC Heparin Sodium (Porcine) (Heparin Inj) 2,500 units UNSCH PRN IV APTT 25 TO 39; Start 12/12/17 at 11:00; Stop 12/12/17 at 13:04; Status DC Heparin Sodium/ Dextrose 250 ml @ 10 mls/hr TITRATE PRN IV Coagulation Management Last administered on 12/12/17at 05:17; Start 12/12/17 at 05:00; Stop 12/12/17 at 13:04; Status DC Sodium Chloride (NS Flush) 2 ml UNSCH PRN IV FLUSH FLUSH AFTER USING IV ACCESS ; Start 12/12/17 at 05:00; Stop 12/12/17 at 19:48; Status DC Sodium Chloride (NS Flush) 2 ml BID IV FLUSH ; Start 12/12/17 at 09:00; Stop at 19:48; Status DC Acetaminophen (Tylenol) 650 mg Q4H PRN PO Headache, fever; Start 12/12/17 at 05 :00 Ondansetron HCl (Zofran Inj) 4 mg Q6H PRN IVP NAUSEA OR VOMITING; Start at 05:00; Stop 12/12/17 at 05:00; Status DC Naloxone HCl (Narcan Inj) 0.4 mg UNSCH PRN IV PUSH SEE LABEL COMMENTS; Start at 05:00; Stop 12/13/17 at 10:45; Status DC Magnesium Hydroxide (Milk Of Magnesia Liq) 30 ml Q12H PRN PO Mild constipation ; Start 12/12/17 at 05:00 Sennosides (Senokot) 17.2 mg Q12H PRN PO Moderate constipation; Start 12/12/17 at 05:00 Bisacodyl (Dulcolax Supp) 10 mg DAILY PRN RECTAL SEVERE CONSITIPATION; Start at 05:00 Lactulose (Lactulose Liq) 30 ml DAILY PRN PO SEVERE CONSITIPATION; Start at 05:00 Ondansetron HCl (Zofran Odt) 4 mg Q6H PRN PO NAUSEA OR VOMITING; Start at 05:00; Stop 12/12/17 at 13:52; Status DC Nitroglycerin/ Dextrose 250 ml @ 1.5 mls/hr TITRATE PRN IV Chest pain relief Last administered on 12/12/17at 05:43; Start 12/12/17 at 05:30; Stop 12/12/17 at 13:04; Status DC Morphine Sulfate (Morphine Inj) 2 mg ONCE ONCE IV PUSH Last administered on at 06:18; Start 12/12/17 at 06:00; Stop 12/12/17 at 06:01; Status DC Midazolam HCl (Versed Inj) 2 mg STK-MED ONCE .ROUTE Last administered on at 07:22; Start 12/12/17 at 06:35; Stop 12/12/17 at 06:36; Status DC Fentanyl Citrate (fentaNYL INJ) 100 mcg STK-MED ONCE .ROUTE Last administered on 12/12/17at 07:23; Start 12/12/17 at 06:35; Stop 12/12/17 at 06:36; Status DC Heparin Sodium (Porcine) (Heparin Inj) 10,000 units STK-MED ONCE .ROUTE Last administered on 12/12/17at 07:37; Start 12/12/17 at 06:42; Stop 12/12/17 at 06:43 ; Status DC Midazolam HCl (Versed Inj) 2 mg STK-MED ONCE .ROUTE Last administered on at 07:57; Start 12/12/17 at 07:55; Stop 12/12/17 at 07:56; Status DC Fentanyl Citrate (fentaNYL INJ) 100 mcg STK-MED ONCE .ROUTE Last administered on 12/12/17at 07:59; Start 12/12/17 at 07:58; Stop 12/12/17 at 07:59; Status DC Heparin Sodium/ Sodium Chloride 500 ml @ As Directed STK-MED ONCE .ROUTE ; Start 12/12/17 at 08:16; Stop 12/12/17 at 08:17; Status DC Heparin Sodium (Porcine) (Heparin Inj) 40,000 units STK-MED ONCE .ROUTE Last administered on 12/12/17at 09:42; Start 12/12/17 at 08:17; Stop 12/12/17 at 08:18 ; Status DC Methylprednisolone Sodium Succinate (SoluMEDROL INJ) 125 mg STK-MED ONCE .ROUTE ; Start 12/12/17 at 08:17; Stop 12/12/17 at 08:18; Status DC Vancomycin HCl (Vancomycin Inj) 4,000 mg STK-MED ONCE .ROUTE ; Start 12/12/17 at 08:17; Stop 12/12/17 at 08:18; Status DC Cefazolin Sodium/ Dextrose 50 ml @ As Directed STK-MED ONCE .ROUTE ; Start 12/12 at 08:17; Stop 12/12/17 at 08:18; Status DC Sodium Chloride (NS Flush) 2 ml BID IV FLUSH ; Start 12/12/17 at 09:00; Stop at 09:00; Status DC Sodium Chloride (NS Flush) 2 ml UNSCH PRN IV FLUSH FLUSH AFTER USING IV ACCESS ; Start 12/12/17 at 08:30; Stop 12/12/17 at 08:39; Status DC Papaverine HCl 60 mg/Nitroglycerin 100 mcg/Diltiazem HCl 100 mg/Sodium Chloride 100 ml @ 0 mls/hr HOTBED LEVER OPERATOR IRRIGATION ; Start 12/12/17 at 08:30; Stop 12/12/17 at 08:38; Status DC Cefazolin Sodium 500 mg/Sodium Chloride 505 ml @ 0 mls/hr HOTBED LEVER OPERATOR IRRIGATION Last administered on 12/12/17at 11:42; Start 12/12/17 at 08:30; Stop 12/13/17 at 10:45; Status DC Cefazolin Sodium/ Dextrose 50 ml @ 150 mls/hr HOTBED LEVER OPERATOR IV Last administered on 12/12/17at 09:42; Start 12/12/17 at 08:30; Stop 12/13/17 at 10:45; Status DC Metoprolol Tartrate (Lopressor) 12.5 mg HOTBED LEVER OPERATOR PO ; Start 12/12/17 at 08:30; Stop 12/12/17 at 13:52; Status DC Chlorhexidine Gluconate (Hibiclens 4% Top Soln) 1 applic HOTBED LEVER OPERATOR TOPICAL ; Start 12/12/17 at 08:30; Stop 12/13/17 at 10:45; Status DC Insulin Human Regular 100 units/ Sodium Chloride 100 ml @ 3 mls/hr TITRATE PRN IV for blood glucose control; Start 12/12/17 at 08:30; Stop 12/12/17 at 13:50; Status DC Dextrose (D50w (Vial) Inj) 50 ml UNSCH PRN IV PUSH HYPOGLYCEMIA-SEE COMMENTS; Start 12/12/17 at 08:30; Stop 12/12/17 at 13:52; Status DC Miscellaneous (Pill Splitter) 1 ea UNSCH PRN OTHER SEE LABEL COMMENTS; Start at 08:45 Papaverine HCl 60 mg/Nitroglycerin 100 mcg/Verapamil HCl 100 mg/Sodium Chloride 120 ml @ 0 mls/hr HOTBED LEVER OPERATOR IRRIGATION ; Start 12/12/17 at 08:45; Stop 12/12/17 at 08:48; Status DC Papaverine HCl 60 mg/Nitroglycerin 100 mcg/Verapamil HCl 100 mg/Sodium Chloride 100 ml @ 0 mls/hr HOTBED LEVER OPERATOR IRRIGATION Last administered on 12/12/17at 11:46; Start 12/12/17 at 09:00; Stop 12/13/17 at 10:45; Status DC Heparin Sodium (Porcine) (Heparin Inj) 20,000 units STK-MED ONCE .ROUTE ; Start 12/12/17 at 08:54; Stop 12/12/17 at 08:55; Status DC Heparin Sodium (Porcine) (Heparin Inj) 20,000 units STK-MED ONCE .ROUTE ; Start 12/12/17 at 08:54; Stop 12/12/17 at 08:55; Status DC Methylprednisolone Sodium Succinate (SoluMEDROL INJ) 125 mg STK-MED ONCE .ROUTE ; Start 12/12/17 at 08:54; Stop 12/12/17 at 08:55; Status DC Vancomycin HCl (Vancomycin Inj) 4,000 mg STK-MED ONCE .ROUTE Last administered on 12/12/17at 10:00; Start 12/12/17 at 08:54; Stop 12/12/17 at 08:55; Status DC Cefazolin Sodium/ Dextrose 50 ml @ As Directed STK-MED ONCE .ROUTE ; Start 12/12 at 08:54; Stop 12/12/17 at 08:55; Status DC Multi-Ingred Electrol/Mineral Irrig 2,000 ml @ As Directed STK-MED ONCE .ROUTE ; Start 12/12/17 at 09:25; Stop 12/12/17 at 09:26; Status DC Albumin Human 50 ml @ As Directed STK-MED ONCE IV ; Start 12/12/17 at 09:25; Stop 12/12/17 at 09:26; Status DC Potassium Chloride 200 ml @ As Directed STK-MED ONCE .ROUTE ; Start 12/12/17 at 09:25; Stop 12/12/17 at 09:26; Status DC Calcium Chloride (Calcium Chloride Inj) 1 gm STK-MED ONCE .ROUTE ; Start at 09:26; Stop 12/12/17 at 09:27; Status DC Heparin Sodium (Porcine) (Heparin Inj) 10,000 units STK-MED ONCE .ROUTE ; Start 12/12/17 at 09:26; Stop 12/12/17 at 09:27; Status DC Mannitol 100 ml @ As Directed STK-MED ONCE .ROUTE ; Start 12/12/17 at 09:26; Stop 12/12/17 at 09:27; Status DC Sodium Bicarbonate 50 ml @ As Directed STK-MED ONCE .ROUTE ; Start 12/12/17 at 09:27; Stop 12/12/17 at 09:28; Status DC Iohexol (OMNIPAQUE 350 INJ (Parking Meter Mechanic)) 50 ml STK-MED ONCE OTHER ; Start at 04:49; Stop 12/12/17 at 11:31; Status DC Iohexol (OMNIPAQUE 350 INJ (Parking Meter Mechanic)) 100 ml STK-MED ONCE OTHER ; Start at 04:49; Stop 12/12/17 at 11:31; Status DC Sodium Chloride (NS Flush) 2 ml BID IV FLUSH Last administered on 12/19/17at 08: 25; Start 12/12/17 at 21:00 Sodium Chloride (NS Flush) 2 ml UNSCH PRN IV FLUSH FLUSH AFTER USING IV ACCESS ; Start 12/12/17 at 13:00 Clevidipine 50 ml @ 2 mls/hr TITRATE PRN IV Maintain BP < 140/90 mmHg Last administered on 12/13/17at 01:24; Start 12/12/17 at 14:00; Stop 12/13/17 at 10:45 ; Status DC Albumin Human 250 ml @ 250 mls/hr UNSCH PRN IV SEE LABEL COMMENTS; Start 12/12 at 13:00; Stop 12/13/17 at 10:45; Status DC Lactated Ringer's 500 ml @ 500 mls/hr Q1H PRN IV SEE LABEL COMMENTS; Start at 12:56; Stop 12/13/17 at 10:45; Status DC Miscellaneous Information ([facility] [place] Post-op Orders (for Pharmacy)) STAT ONCE OTHER ; Start 12/12/17 at 13:00; Stop 12/12/17 at 13:44; Status DC Cefazolin Sodium 1000 mg/Sodium Chloride 100 ml @ 200 mls/hr Q8H IV Last administered on 12/13/17at 22:00; Start 12/12/17 at 14:00; Stop 12/13/17 at 22:29 ; Status DC Aspirin (Aspirin Chew) 81 mg DAILY PO Last administered on 12/19/17at 08:25; Start 12/13/17 at 09:00 Pantoprazole Sodium (Protonix) 40 mg DAILY@06 PO Last administered on at 05:28; Start 12/13/17 at 06:00 Acetaminophen (Tylenol) 650 mg Q4H PRN PO TEMPERATURE > 101 F; Start 12/12/17 at 13:00 Acetaminophen (Tylenol Supp) 650 mg Q4H PRN RECTAL TEMPERATURE > 101 F; Start 12/12/17 at 13:00; Stop 12/13/17 at 10:45; Status DC Acetaminophen 100 ml @ 400 mls/hr Q6H IV Last administered on 12/13/17at 06:14 ; Start 12/12/17 at 13:00; Stop 12/13/17 at 07:14; Status DC Oxycodone/ Acetaminophen (Percocet 5-325 Mg) 1 tab Q3H PRN PO PAIN SCALE 1 TO 5 Last administered on 12/14/17at 11:39; Start 12/12/17 at 13:00; Stop 12/14/17 at 14:35; Status DC Fentanyl Citrate (fentaNYL INJ) 25 mcg Q1H PRN IV PUSH BREAKTHROUGH PAIN Last administered on 12/13/17at 10:42; Start 12/12/17 at 13:00; Stop 12/13/17 at 10:45 ; Status DC Ondansetron HCl (Zofran Odt) 4 mg Q6H PRN PO NAUSEA OR VOMITING Last administered on 12/17/17at 10:07; Start 12/12/17 at 13:00 Hydralazine HCl (Apresoline Inj) 10 mg Q4H PRN IV PUSH SEE LABEL COMMENTS; Start 12/12/17 at 13:00 Metoprolol Tartrate (Lopressor Inj) 2.5 mg Q1H PRN IV PUSH SEE LABEL COMMENTS; Start 12/12/17 at 13:00; Stop 12/13/17 at 10:45; Status DC Potassium Chloride 100 ml @ 50 mls/hr UNSCH PRN IV SEE LABEL COMMENTS Last administered on 12/12/17at 14:23; Start 12/12/17 at 13:00; Stop 12/12/17 at 14:25 ; Status DC Potassium Chloride 100 ml @ 50 mls/hr UNSCH PRN IV SEE LABEL COMMENTS Last administered on 12/12/17at 16:31; Start 12/12/17 at 13:00; Stop 12/13/17 at 10:45 ; Status DC Potassium Chloride 100 ml @ 50 mls/hr UNSCH PRN IV SEE LABEL COMMENTS; Start 12/12/17 at 13:00; Stop 12/13/17 at 10:45; Status DC Potassium Chloride (KCl) 20 meq UNSCH PRN PO SEE LABEL COMMENTS; Start at 13:00; Stop 12/13/17 at 10:45; Status DC Potassium Chloride (KCl) 40 meq UNSCH PRN PO SEE LABEL COMMENTS; Start at 13:00; Stop 12/13/17 at 10:45; Status DC Magnesium Sulfate 2 gm/Sodium Chloride 104 ml @ 100 mls/hr UNSCH PRN IV SEE LABEL COMMENTS; Start 12/12/17 at 13:00; Stop 12/13/17 at 10:45; Status DC Magnesium Sulfate 2 gm/Sodium Chloride 104 ml @ 50 mls/hr UNSCH PRN IV SEE LABEL COMMENTS; Start 12/12/17 at 13:00; Stop 12/13/17 at 10:45; Status DC Calcium Chloride 1 gm/Sodium Chloride 110 ml @ 100 mls/hr UNSCH PRN IV SEE LABEL COMMENTS Last administered on 12/12/17at 14:22; Start 12/12/17 at 13:00; Stop 12/13/17 at 10:45; Status DC Calcium Chloride (Calcium Chloride Inj) 0.5 gm UNSCH PRN IV PUSH SEE LABEL COMMENTS; Start 12/12/17 at 13:00; Stop 12/13/17 at 10:45; Status DC Insulin Human Regular 100 units/ Sodium Chloride 100 ml @ 3 mls/hr TITRATE PRN IV for blood glucose control Last administered on 12/12/17at 13:30; Start at 13:00; Stop 12/13/17 at 10:45; Status DC Dextrose (D50w (Vial) Inj) 50 ml UNSCH PRN IV PUSH HYPOGLYCEMIA-SEE COMMENTS; Start 12/12/17 at 13:00; Stop 12/13/17 at 11:16; Status DC Sodium Bicarbonate (Sodium Bicarbonate 8.4% Inj) 50 meq UNSCH PRN IV PUSH SEE LABEL COMMENTS Last administered on 12/13/17at 01:42; Start 12/12/17 at 13:00; Stop 12/13/17 at 10:45; Status DC Sodium Bicarbonate (Sodium Bicarbonate 8.4% Inj) 100 meq UNSCH PRN IV PUSH SEE LABEL COMMENTS; Start 12/12/17 at 13:00; Stop 12/13/17 at 10:45; Status DC Albuterol/ Ipratropium (Duoneb Neb) 1 ampule Q6HR NEB NEB Last administered on 12/13/17at 08:55; Start 12/12/17 at 16:00; Stop 12/13/17 at 11:16; Status DC Albuterol/ Ipratropium (Duoneb Neb) 1 ampule Q2HR NEB PRN NEB WHEEZING; Start 12/12/17 at 13:00 Racepinephrine (Racepinephrine 2.25% Neb) 0.5 ml UNSCH X1 PRN NEB STRIDOR; Start 12/12/17 at 13:00; Stop 12/13/17 at 10:45; Status DC Fentanyl Citrate (fentaNYL INJ) 1,000 mcg STK-MED ONCE .ROUTE ; Start 12/12/17 at 13:38; Stop 12/13/17 at 10:45; Status DC Midazolam HCl (Versed Inj) 8 mg STK-MED ONCE .ROUTE ; Start 12/12/17 at 13:39; Stop 12/13/17 at 10:45; Status DC Midazolam HCl (Versed Inj) 2 mg STK-MED ONCE .ROUTE ; Start 12/12/17 at 13:39; Stop 12/13/17 at 10:45; Status DC Morphine Sulfate (Morphine Inj) 4 mg STK-MED ONCE .ROUTE ; Start 12/12/17 at 13: 39; Stop 12/13/17 at 10:45; Status DC Dexmedetomidine HCl 50 ml @ 4.15 mls/hr TITRATE PRN IV Desired RASS Last administered on 12/12/17at 13:30; Start 12/12/17 at 15:30; Stop 12/13/17 at 10:45 ; Status DC Amiodarone HCl (Cordarone Inj) 150 mg STK-MED ONCE .ROUTE ; Start 12/12/17 at 19 :15; Stop 12/13/17 at 10:45; Status DC Amiodarone HCl 150 mg/Dextrose 100 ml @ 600 mls/hr NOW ONCE IV Last administered on 12/12/17at 20:37; Start 12/12/17 at 20:00; Stop 12/12/17 at 20:09 ; Status DC Amiodarone HCl 450 mg/Dextrose 250 ml @ 33.33 mls/ hr TITRATE PRN IV Per Protocol; Start 12/12/17 at 20:00; Status Cancel Glucagon (Glucagon Inj) 1 mg UNSCH PRN OTHER HYPOGLYCEMIA-SEE COMMENTS; Start 12/12/17 at 19:45; Stop 12/13/17 at 11:17; Status DC Amiodarone HCl 450 mg/Sodium Chloride 250 ml @ 33.33 mls/ hr TITRATE PRN IV Per Protocol; Start 12/12/17 at 20:00; Stop 12/13/17 at 10:45; Status DC Amiodarone HCl (Cordarone) 400 mg TID PO Last administered on 12/14/17at 08:43; Start 12/13/17 at 09:00; Stop 12/14/17 at 10:58; Status DC Atorvastatin Calcium (Lipitor) 80 mg HS PO Last administered on 12/18/17at 20:51 ; Start 12/13/17 at 21:00 Albuterol/ Ipratropium (Duoneb Neb) 1 ampule Q6HR WHILE AWAKE NEB NEB Last administered on 12/15/17at 08:39; Start 12/13/17 at 14:00; Stop 12/15/17 at 13:59 ; Status DC Docusate Sodium (Colace) 100 mg BID PO Last administered on 12/18/17at 20:52; Start 12/13/17 at 21:00 Multivitamins/ Minerals Therapeutic (Theragran M Tab) 1 tab DAILY PO Last administered on 12/19/17at 08:24; Start 12/14/17 at 09:00 Magnesium Hydroxide (Milk Of Magnesia Liq) 30 ml DAILY PO Last administered on 12/16/17at 09:04; Start 12/14/17 at 09:00 Bisacodyl (Dulcolax Supp) 10 mg UNSCH PRN RECTAL SEE LABEL COMMENTS; Start at 10:45 Polyethylene Glycol (Miralax) 17 gm DAILY PO Last administered on 12/16/17at 09: 04; Start 12/14/17 at 09:00 Sennosides (Senokot) 8.6 mg HS PO Last administered on 12/17/17at 21:18; Start 12/13/17 at 21:00 Sodium Biphosphate/ Sodium Phosphate (Fleets Enema (Adult)) 118 ml UNSCH PRN RECTAL SEE LABEL COMMENTS; Start 12/13/17 at 10:45 Metoprolol Tartrate (Lopressor) 12.5 mg BID PO Last administered on 12/19/17at 08:25; Start 12/13/17 at 10:45 Insulin Aspart (NovoLOG SUPPLEMENTAL SCALE) 1 02,06,10,14,18,22 SQ Last administered on 12/13/17at 17:08; Start 12/13/17 at 14:00; Stop 12/14/17 at 13:59 ; Status DC Dextrose (D50w (Vial) Inj) 50 ml UNSCH PRN IV PUSH HYPOGLYCEMIA-SEE COMMENTS; Start 12/13/17 at 10:45 Glucagon (Glucagon Inj) 1 mg UNSCH PRN OTHER HYPOGLYCEMIA-SEE COMMENTS; Start 12/13/17 at 10:45 Tamsulosin HCl (Flomax) 0.4 mg DAILY PO Last administered on 12/19/17at 08:24; Start 12/14/17 at 09:00 Insulin Aspart (NovoLOG SUPPLEMENTAL SCALE) 1 ACHS SQ Last administered on 12/18at 21:35; Start 12/14/17 at 12:00 Sodium Chloride 500 ml @ 50 mls/hr Q10H IV ; Start 12/14/17 at 11:00; Stop at 11:00; Status DC Sodium Chloride 250 ml @ 125 mls/hr Q2H IV ; Start 12/14/17 at 11:00; Stop at 12:59; Status UNV Amiodarone HCl (Cordarone) 400 mg Q12HR PO Last administered on 12/19/17at 08:24 ; Start 12/14/17 at 21:00 Acetaminophen/ Hydrocodone Bitart (Ruthven 5-325 Mg) 1 tab Q4H PRN PO PAIN SCALE 1 TO 5 Last administered on 12/19/17at 08:24; Start 12/14/17 at 14:45 Furosemide (Lasix Inj) 20 mg ONCE ONCE IV PUSH ; Start 12/15/17 at 13:30; Stop 12/15/17 at 13:31; Status DC Furosemide (Lasix Inj) 20 mg UNSCH X1 IV PUSH Last administered on 12/16/17at 02:43; Start 12/15/17 at 22:45; Stop 12/16/17 at 09:00; Status DC Furosemide (Lasix Inj) 20 mg UNSCH X1 IV PUSH ; Start 12/15/17 at 22:45; Stop 12/16/17 at 09:00; Status DC Temazepam (Restoril) 7.5 mg HS PRN PO sleep Last administered on 12/18/17at 23: 34; Start 12/16/17 at 21:00 Lisinopril (Prinivil) 2.5 mg DAILY@2100 PO ; Start 12/19/17 at 21:00 Miscellaneous (Pill Splitter) 1 ea UNSCH PRN OTHER SEE LABEL COMMENTS; Start at 09:00 Date of Insertion: December 15, 2017 A/P Assessment and Plan 82 years old male ACS S/P cath with severe vessel disease, required IABP- on cath S/P emergent CABG - cardiology and Cardiothoracic surgery ff - continue meds- On Amidoarone, statins, BB and ASA CKI- ff BMP stable Acute urinary retention history of BPH - solzi placed 12/[address] Molina . continue Flomax - DC home with soliz - OP ff up with his Urologist- Dr. Irwin Acute anemia- post op - S/P transfusion 12/15 - H and H stable DC planning- home with home [facility] waiting for Life vest to be delivered OP ff up with PCP- Dr. Marion FF up with Cardiology- Dr. Emanuel OP ff up with CTS OP ff up with his Urologist- Dr. Irwin Discharge Planning HOPEFULLY DC TO HOME WITH [facility] TODAY Gustavo Cabrera DO December 19, 2017 10:06
[2017-12-19] MEDS ORDERED: SIMETHICONE 80 MG CHEWABLE TAB CHEW PRN (10:15)
--- NOTE | 2017-12-19 10:17 | HHI.DS ---
Discharge Summary Admission Date December 12, 2017 at 13:03 Discharge Date: December 19, 2017 Admitting Diagnosis Unstable angina, chest pain (1) S/P CABG x 2 ICD Code: Z95.1 - Presence of aortocoronary bypass graft Diagnosis: Principal Status: Acute (2) Cardiomyopathy ICD Code: I42.9 - Cardiomyopathy, unspecified Diagnosis: Principal Status: Acute (3) urinary retention Diagnosis: Secondary Status: Resolved (4) Combined systolic and diastolic congestive heart failure, NYHA class 4 ICD Code: I50.40 - Unspecified combined systolic (congestive) and diastolic ( congestive) heart failure Diagnosis: Principal Status: Resolved (5) ST elevation (STEMI) myocardial infarction ICD Code: I21.3 - ST elevation (STEMI) myocardial infarction of unspecified site Diagnosis: Principal Status: Resolved (6) BPH (benign prostatic hyperplasia) ICD Code: N40.0 - Benign prostatic hyperplasia without lower urinary tract symptoms Diagnosis: Secondary Status: Chronic (7) Hyperlipemia ICD Code: E78.5 - Hyperlipidemia, unspecified Diagnosis: Secondary Status: Chronic (8) Chest pain ICD Code: R07.9 - Chest pain, unspecified Diagnosis: Principal Status: Acute (9) Unstable angina ICD Code: I20.0 - Unstable angina Diagnosis: Principal Status: Acute Procedures 12/12 CABG x 2 Brief History - From Admission 82y/o male with known h/o CAD s/p stent placement to RCA in the past presents with chest pain since ~6AM. [place] the [place] when [place] experienced acute onset of chest pain radiating to the jaw. He went to the [facility] ED and was found to have ST elevation in V leads. A STEMI alert was called and he was transferred to the main campus for emergency left heart cath. This shows chronic LAD occlusion with collaterals from a diagonal with critical subtotal occlusion. His EF was 60% recently and is now ~20-25% with fairly global hypo/ akinesis. He continues to have chest pain and Dr. Emanuel could not safely cross lesion for PCI. Cardiothoracic surgery was consulted for emergent CABG. Now post op - in ICU, CBC/BMP: 12/18/17 0503 12/16/17 0353 Significant Findings Laboratory Tests Test 12/18/17 05:03 Red Blood Count 3.13 MIL/MM3 (4.50-5.90) Hemoglobin 9.9 GM/DL (13.0-17.0) Hematocrit 28.9 % (39.0-51.0) Imaging Last Impressions Chest X-Ray 12/16/17 0000 Signed Impressions: CONCLUSION: 1. No evidence of pneumothorax following chest tube removal. 2. Hypoaerated lungs with bibasilar airspace disease. PE at Discharge GENERAL: Awake alert and oriented 3 talkative and cooperative SKIN: Warm and dry. Chest area is dressed HEAD: Atraumatic. Normocephalic. EYES: Pupils equal and round. No scleral icterus. No injection or drainage. Extraocular muscles intact ENT: No nasal bleeding or discharge. Mucous membranes pink and moist. Tongue is midline NECK: Trachea midline. No JVD. Supple CARDIOVASCULAR: Regular rate and rhythm. S1-S2 no S3 or S4 RESPIRATORY: No accessory muscle use. Clear to auscultation. Breath sounds equal bilaterally. GASTROINTESTINAL: Abdomen soft, non-tender, nondistended. Hepatic and splenic margins not palpable. MUSCULOSKELETAL: Extremities without clubbing, cyanosis, or edema. No obvious deformities. NEUROLOGICAL: Awake and alert. No obvious cranial nerve deficits. Motor grossly within normal limits. 4 out of 5 muscle strength in the arms and legs. Normal speech. PSYCHIATRIC: Appropriate mood and affect; insight and judgment normal. Hospital Course 82y/o male with known h/o CAD s/p stent placement to RCA in the past presents with chest pain since ~6AM. [place] driving to the airport when he experienced acute onset of chest pain radiating to the jaw. He went to the [facility] ED and was found to have ST elevation in V leads. A STEMI alert was called and he was transferred to the main campus for emergency left heart cath. This shows chronic LAD occlusion with collaterals from a diagonal with critical subtotal occlusion. His EF was 60% recently and is now ~20-25% with fairly global hypo/ akinesis. He continues to have chest pain and Dr. Emanuel could not safely cross lesion for PCI. Cardiothoracic surgery was consulted for emergent CABG. Now post op - in ICU, HAD CABG X2 ON 12-12 SLOW IMPROVEMENT HOPEFULLY DC LATER TODAY WITH MASONJennie JUAN RN AND PT WILL NEED HHC Pt Condition on Discharge: Good Discharge Disposition: Disch w/ Home Health Serv Discharge Time: > 30 minutes Discharge Instructions DIET: Follow Instructions for: Heart Healthy Diet Speech Therapy-Diet Recommends: Regular Activities you can perform: Shower Only-No Bath Other Activity Instructions: WEAR LIFEVEST AT ALL TIMES EXCEPT IN SHOWER NO SWIMMING OR TUB BATHS Follow up Referrals: Cardiology - 4 Weeks with James Emanuel MD PCP Follow-up - 2 Weeks with Luis F Marion MD Surgical - 2 Weeks with Samira La Urology - 1 Week with Nicholas Mena MD New Orders: BASIC METABOLIC PROF - 2 Weeks CBC NO DIFF - 2 Weeks X-RAY CHEST PA & LAT - 2 Weeks New Medications: Commode 3-in-1 (Commode 3-in-1) 1 Mis Mis EA .XX DIRECTED, #1 0 Refills Defibrillator Jacket (Defibrillator Jacket) 1 Ea Device EA EXTERNAL ONCE, #1 Energy = 150 Joules; VT Threshold = 150 BPM; VF Threshold = 200 BPM Use up to 90 days only Walker with Front Wheels (Walker with Front Wheels) 1 Mis Mis EA .XX DIRECTED, #1 0 Refills Amiodarone (Amiodarone) 200 Mg Tab 400 MG PO Q12HR for CABG for 30 Days, TAB Metoprolol Tartrate (Metoprolol Tartrate) 25 Mg Tab 12.5 MG PO BID for CAD for 30 Days, #30 TAB Tamsulosin (Flomax) 0.4 Mg Cap 0.4 MG PO DAILY for BPH for 30 Days, #30 CAP Continued Medications: Aspirin (Aspirin) 81 Mg Chew 81 MG CHEW DAILY, TAB 0 Refills Atorvastatin (Lipitor) 80 Mg Tab 80 MG PO HS for Cholesterol Management, #30 TAB 0 Refills Discontinued Medications: Losartan (Cozaar) 50 Mg Tab 50 MG PO DAILY for Blood Pressure Management, #30 TAB 0 Refills Additional Information WEAR LIFEVEST AT ALL TIMES EXCEPT WHEN SHOWERING CONTINUE FLOREZ CATHETER Gustavo Cabrera DO December 19, 2017 10:17
[2017-12-19] MEDS ORDERED: ASPI-516 CHEW (10:20)
[2017-12-19] MEDS ORDERED: LISI-519 PO (10:20)
[2017-12-19] MEDS ORDERED: PANT40TA3 PO (10:20)
[2017-12-19] MEDS ORDERED: THERM PO (10:20)
[2017-12-19] MEDS ORDERED: LIPI80TA PO (10:20)
[2017-12-19] MEDS ORDERED: HYDR-3516 PO (10:20)
[2017-12-19] MEDS ORDERED: Simethicone Chew CHEW (10:20)
--- NOTE | 2017-12-19 10:57 | PD.CARD.PN ---
Subjective Subjective Remarks Pt sitting up in chair, in no distress. Reports he is ready to go home. Denies chest pain. Does have discomfort around incision site. (Shadeed,Nurys PARKER) Objective Medications Current Medications Medications (Trade) Dose Ordered Sig/Poly Route Start Time Stop Time Status Last Admin (Tylenol) 650 mg Q4H PRN PO 12/12/17 05:00 (Milk Of Magnesia Liq) 30 ml Q12H PRN PO 12/12/17 05:00 (Senokot) 17.2 mg Q12H PRN PO 12/12/17 05:00 (Dulcolax Supp) 10 mg DAILY PRN RECTAL 12/12/17 05:00 (Lactulose Liq) 30 ml DAILY PRN PO 12/12/17 05:00 (Pill Splitter) 1 ea UNSCH PRN OTHER 12/12/17 08:45 (NS Flush) 2 ml BID IV FLUSH 12/12/17 21:00 12/19/17 08:25 (NS Flush) 2 ml UNSCH PRN IV FLUSH 12/12/17 13:00 (Aspirin Chew) 81 mg DAILY PO 12/13/17 09:00 12/19/17 08:25 (Protonix) 40 mg DAILY@06 PO 12/13/17 06:00 12/19/17 05:28 (Tylenol) 650 mg Q4H PRN PO 12/12/17 13:00 (Zofran Odt) 4 mg Q6H PRN PO 12/12/17 13:00 12/17/17 10:07 (Apresoline Inj) 10 mg Q4H PRN IV PUSH 12/12/17 13:00 (Duoneb Neb) 1 ampule Q2HR NEB PRN NEB 12/12/17 13:00 (Lipitor) 80 mg HS PO 12/13/17 21:00 12/18/17 20:51 (Colace) 100 mg BID PO 12/13/17 21:00 12/18/17 20:52 (Theragran M Tab) 1 tab DAILY PO 12/14/17 09:00 12/19/17 08:24 (Milk Of Magnesia Liq) 30 ml DAILY PO 12/14/17 09:00 12/16/17 09:04 (Dulcolax Supp) 10 mg UNSCH PRN RECTAL 12/13/17 10:45 (Miralax) 17 gm DAILY PO 12/14/17 09:00 12/16/17 09:04 (Senokot) 8.6 mg HS PO 12/13/17 21:00 12/17/17 21:18 (Fleets Enema (Adult)) 118 ml UNSCH PRN RECTAL 12/13/17 10:45 (Lopressor) 12.5 mg BID PO 12/13/17 10:45 12/19/17 08:25 (D50w (Vial) Inj) 50 ml UNSCH PRN IV PUSH 12/13/17 10:45 (Glucagon Inj) 1 mg UNSCH PRN OTHER 12/13/17 10:45 (Flomax) 0.4 mg DAILY PO 12/14/17 09:00 12/19/17 08:24 (NovoLOG SUPPLEMENTAL SCALE) 1 ACHS SQ 12/14/17 12:00 12/18/17 21:35 (Cordarone) 400 mg Q12HR PO 12/14/17 21:00 12/19/17 08:24 (Ruffin 5-325 Mg) 1 tab Q4H PRN PO 12/14/17 14:45 12/19/17 08:24 (Restoril) 7.5 mg HS PRN PO 12/16/17 21:00 12/18/17 23:34 (Prinivil) 2.5 mg DAILY@2100 PO 12/19/17 21:00 (Mylicon Chew) 80 mg PCHS PRN CHEW 12/19/17 10:15 12/19/17 10:25 Vital Signs / I&O Vital Signs Date Time Temp Pulse Resp B/P (MAP) Pulse Ox O2 Delivery O2 Flow Rate FiO2 12/19/17 10:00 64 12/19/17 09:00 68 12/19/17 08:00 76 12/19/17 08:00 98.1 73 15 107/60 (76) 95 12/19/17 07:00 70 12/19/17 06:10 65 12/19/17 05:09 65 12/19/17 04:42 98.2 75 106/61 (76) 95 12/19/17 04:03 70 12/19/17 03:15 66 12/19/17 02:24 70 5/29/18 01:19 66 12/19/17 00:52 98.3 73 102/57 (72) 94 12/19/17 00:35 69 12/18/17 23:00 70 12/18/17 22:00 80 12/18/17 21:00 86 12/18/17 20:00 84 12/18/17 19:00 98.6 85 115/60 (78) 93 12/18/17 19:00 86 12/18/17 18:00 86 12/18/17 17:00 84 12/18/17 16:00 74 12/18/17 15:00 98.0 77 16 115/58 (77) 95 12/18/17 15:00 75 12/18/17 14:00 67 12/18/17 13:00 80 12/18/17 12:00 66 12/18/17 11:00 98.1 69 18 109/61 (77) 99 12/18/17 11:00 99 Room Air 12/18/17 11:00 68 I/O 12/18/17 12/18/17 12/18/17 12/19/17 12/19/17 12/19/17 07:00 15:00 23:00 07:00 15:00 23:00 Intake Total 440 ml 700 ml 480 ml Output Total 780 ml 400 ml 400 ml Balance -340 ml 300 ml 80 ml Intake Oral 440 ml 700 ml 480 ml Output Urine Total 780 ml 400 ml 400 ml # Bowel Movements 2 1 Physical Exam GENERAL: elderly male, in no acute distress SKIN: Warm and dry. HEAD: Atraumatic. Normocephalic. EYES: Pupils equal and round. No scleral icterus. No injection or drainage. ENT: No nasal bleeding or discharge. Mucous membranes pink and moist. NECK: Trachea midline. No JVD. CARDIOVASCULAR: Regular rate, midline chest incision. RESPIRATORY: No accessory muscle use. Clear to auscultation. Breath sounds equal bilaterally. GASTROINTESTINAL: abdomen distended MUSCULOSKELETAL: Extremities without clubbing, cyanosis, or edema. No obvious deformities. NEUROLOGICAL: Awake and alert. No obvious cranial nerve deficits. Motor grossly within normal limits. Five out of 5 muscle strength in the arms and legs. Normal speech. PSYCHIATRIC: Appropriate mood and affect; insight and judgment normal. (Shadeed,Nurys PARKER) Assessment and Plan Problem List: (1) S/P CABG x 2 ICD Codes: Z95.1 - Presence of aortocoronary bypass graft Status: Acute Plan: Recovering well. (2) ST elevation (STEMI) myocardial infarction ICD Codes: I21.3 - ST elevation (STEMI) myocardial infarction of unspecified site Status: Resolved (3) Unstable angina ICD Codes: I20.0 - Unstable angina Status: Acute (4) Combined systolic and diastolic congestive heart failure, NYHA class 4 ICD Codes: I50.40 - Unspecified combined systolic (congestive) and diastolic ( congestive) heart failure Status: Resolved Plan: Will DC home with life vest. On metoprolol. Will add lisinopril 2.5 mg PO qHS. Advised to follow up with Dr. Emanuel in 1-2 weeks. (5) Hyperlipemia ICD Codes: E78.5 - Hyperlipidemia, unspecified Status: Chronic Plan: On statin (6) BPH (benign prostatic hyperplasia) ICD Codes: N40.0 - Benign prostatic hyperplasia without lower urinary tract symptoms Status: Chronic (7) urinary retention Status: Resolved Plan: DC home with soliz. Has follow up with urologist as outpatient. (8) Cardiomyopathy ICD Codes: I42.9 - Cardiomyopathy, unspecified Status: Acute Plan: DC home with life vest. On metoprolol. Started on lisinopril. Will follow up outpatient. Assessment and Plan Diarrhea-ordered stool specimen to evaluate for C-diff per the nurses request. Patient is cleared fro discharge home with Life Vest. Will see Dr. Emanuel in office in 1-2 weeks. The patient was seen and evaluated by Dr. Naylor who completed face to face encounter and physical exam and participated in care, management, and decision making. Discussed Condition With Nurse (Nurys Cueto) Problem List: (1) S/P CABG x 2 ICD Codes: Z95.1 - Presence of aortocoronary bypass graft Status: Acute Plan: Recovering well. (2) ST elevation (STEMI) myocardial infarction ICD Codes: I21.3 - ST elevation (STEMI) myocardial infarction of unspecified site Status: Resolved (3) Unstable angina ICD Codes: I20.0 - Unstable angina Status: Acute (4) Combined systolic and diastolic congestive heart failure, NYHA class 4 ICD Codes: I50.40 - Unspecified combined systolic (congestive) and diastolic ( congestive) heart failure Status: Resolved Plan: Will DC home with life vest. On metoprolol. Will add lisinopril 2.5 mg PO qHS. Advised to follow up with Dr. Emanuel in 1-2 weeks. (5) Hyperlipemia ICD Codes: E78.5 - Hyperlipidemia, unspecified Status: Chronic Plan: On statin (6) BPH (benign prostatic hyperplasia) ICD Codes: N40.0 - Benign prostatic hyperplasia without lower urinary tract symptoms Status: Chronic (7) urinary retention Status: Resolved Plan: DC home with soliz. Has follow up with urologist as outpatient. (8) Cardiomyopathy ICD Codes: I42.9 - Cardiomyopathy, unspecified Status: Acute Plan: The exam, history, and the medical decision-making described in the above note were completed with the assistance of the mid-level provider. I reviewed and agree with the findings presented. I attest that I had a face-to- face encounter with the patient on the same day, and personally performed and documented my assessment and findings in the medical record. Dr Emanuel will follow as o/pDC home with life vest. On metoprolol. Started on lisinopril. (Alia Naylor MD) Problem Qualifiers (1) ST elevation (STEMI) myocardial infarction: Qualified Codes: I21.3 - ST elevation (STEMI) myocardial infarction of unspecified site (2) Combined systolic and diastolic congestive heart failure, NYHA class 4: Qualified Codes: I50.41 - Acute combined systolic (congestive) and diastolic ( congestive) heart failure (3) Cardiomyopathy: Qualified Codes: I25.5 - Ischemic cardiomyopathy Nurys Cueto December 19, 2017 10:57 Alia Naylor MD December 19, 2017 20:43
[2017-12-19] MEDS ORDERED: AMIO200T PO (14:40)
--- NOTE | 2017-12-19 14:46 | PD.CAR.PN ---
CVT Progress Note Subjective/Hospital Course: 82y/o male with known h/o CAD s/p stent placement to RCA in the past presents with chest pain. . [place] driving to the airport [place] when he experienced acute onset of chest pain radiating to the jaw. He went to the [place] ED and was found to have ST elevation in V leads. A STEMI alert was called and he waas transferred to the main campus for emergency left heart cath. This shows chronic LAD occlusion with collaterals from a diagonal with critical subtotal occlusion. His EF was 60% recently and is now ~20-25% with fairly global hypo/akinesis. He continues to have chest pain and Dr. Emanuel could not safely cross lesion for PCI. Plan emergent CABG. IABP placed by Dr Emanuel preop PMH: CAD, HX of RCA stent , HTN, HLP, SSS BPH preop HX ST elevation (STEMI) myocardial infarction Unstable angina Combined systolic and diastolic congestive heart failure, NYHA class 4 12/12 surgery : Emergency CABG x 2 COREY to LAD SVG to D1 L EVH crystalloid 4500cc, 750cc cell saver, EBL 1450 extubated after surgery 12/13 IABP 1: this am BP stable right groin prepped with chlorhexidine, IABP sutures removed under sterile technique Right IABP / with sheath removed / balloon intact / hemostasis obtained after 15 min / additional pressure then held by RN pressure dressing applied / pt tolerated well. To remain flat x 6 hours weaned off Insulin gtt pt had short burst vtach last evening , amiodarone bolus given / amiodarone po started , no further ectopy eval for transfer to stepdown later today 12/14 pt BP on lower side, creatinine up low urine outpt add 250cc NS, pt encouraged to increase po fluids for now bladder scan was on ly 150cc/ no further arrhythmia noted chest tube drained 190cc/ 12 hrs will leave in place today 12/15 leave chest tube in today / drained 170cc/ 12 hrs BP labile , will decrease dose of amiodarone no further evidence of Vtach consult Dr Elizabeth/ per Dr Emanuel for need for Life vest at discharge will not tolerate GABRIELA inhibitor at this time transfuse 2 units PRBC with lasix 12/16 Doing better Appreciate Urology input and assistance D/C CT today Discharge planning 12/17 Doing well Soliz remains in place Discharge planning 12/18 Doing well If LifeVest can be arranged for today, OK to discharge from my standpoint 12/19 stable for dc from [facility] standpoint after Lifevest applied remove prevena dressing to day Objective: GENERAL: A&O x 3 SKIN: Warm and dry. incision intact and well approximated / leg incision intact HEAD: Normocephalic. EYES: No scleral icterus. No injection or drainage. NECK: Supple, trachea midline. No JVD or lymphadenopathy. CARDIOVASCULAR: Regular rate and rhythm without murmurs, gallops, or rubs. RESPIRATORY: Breath sounds equal bilaterally. No accessory muscle use. GASTROINTESTINAL: Abdomen soft, non-tender, nondistended. MUSCULOSKELETAL: No cyanosis, or edema. BACK: Nontender without obvious deformity. No CVA tenderness. : indwelling soliz cath in place Vital Signs Date Time Temp Pulse Resp B/P (MAP) Pulse Ox O2 Delivery O2 Flow Rate FiO2 12/19/17 13:00 64 12/19/17 12:00 66 12/19/17 11:00 98.2 73 16 105/61 (76) 97 12/19/17 11:00 62 12/19/17 10:00 64 12/19/17 09:00 68 12/19/17 08:00 76 12/19/17 08:00 98.1 73 15 107/60 (76) 95 12/19/17 07:00 70 12/19/17 06:10 65 12/19/17 05:09 65 12/19/17 04:42 98.2 75 106/61 (76) 95 12/19/17 04:03 70 12/19/17 03:15 66 12/19/17 02:24 70 12/19/17 01:19 66 12/19/17 00:52 98.3 73 102/57 (72) 94 12/19/17 00:35 69 12/18/17 23:00 70 12/18/17 22:00 80 12/18/17 21:00 86 12/18/17 20:00 84 12/18/17 19:00 98.6 85 115/60 (78) 93 12/18/17 19:00 86 12/18/17 18:00 86 12/18/17 17:00 84 12/18/17 16:00 74 5/28/18 15:00 98.0 77 16 115/58 (77) 95 12/18/17 15:00 75 Result Diagram: 12/18/17 0503 12/16/17 0353 Telemetry: NSR (1) S/P CABG x 2 Plan: Recovering well. ASA, statin , BB (2) ST elevation (STEMI) myocardial infarction (3) Unstable angina (4) Combined systolic and diastolic congestive heart failure, NYHA class 4 Plan: Will DC home with life vest. On metoprolol. Will add lisinopril 2.5 mg PO qHS. Advised to follow up with Dr. Emanuel in 1-2 weeks. (5) Hyperlipemia Plan: On statin (6) BPH (benign prostatic hyperplasia) (7) urinary retention Plan: DC home with soliz. Has follow up with urologist as outpatient. (8) Cardiomyopathy Plan: DC home with life vest. On metoprolol. Started on lisinopril. Will follow up outpatient. Problem Qualifiers (1) ST elevation (STEMI) myocardial infarction: Qualified Codes: I21.3 - ST elevation (STEMI) myocardial infarction of unspecified site (2) Combined systolic and diastolic congestive heart failure, NYHA class 4: Qualified Codes: I50.41 - Acute combined systolic (congestive) and diastolic ( congestive) heart failure (3) Cardiomyopathy: Qualified Codes: I25.5 - Ischemic cardiomyopathy Samira La December 19, 2017 14:46
[2017-12-19] MEDS ORDERED: LISINOPRIL 5 MG TAB PO SCH (21:00)
== END 2017-12-19 18:40 | disposition home health service (06) | DRG 233 ==
LOC: PHED 03:41 → PHEDA 04:48 → HCVI 08:20 → HCIS 08:20 → OBSVTOIN 13:03 → HCVI 13:30 → HCPC 12-13 14:13
PROVIDERS: ADMIT Hospitalist; ATTEND Hospitalist
PROC: 021009W Bypass Coronary Artery, One Artery from Aorta with Autologous Venous Tissue, Open Approach (ICD-10-PCS; 2017-12-12)
PROC: 5A02210 Assistance with Cardiac Output using Balloon Pump, Continuous (ICD-10-PCS; 2017-12-12)
PROC: 06BQ4ZZ Excision of Left Saphenous Vein, Percutaneous Endoscopic Approach (ICD-10-PCS; 2017-12-12)
PROC: B2111ZZ Fluoroscopy of Multiple Coronary Arteries using Low Osmolar Contrast (ICD-10-PCS; 2017-12-12)
PROC: B2151ZZ Fluoroscopy of Left Heart using Low Osmolar Contrast (ICD-10-PCS; 2017-12-12)
PROC: 5A1221Z Performance of Cardiac Output, Continuous (ICD-10-PCS; 2017-12-12)
PROC: B246ZZ4 Ultrasonography of Right and Left Heart, Transesophageal (ICD-10-PCS; 2017-12-12)
PROC: 4A023N7 Measurement of Cardiac Sampling and Pressure, Left Heart, Percutaneous Approach (ICD-10-PCS; principal; 2017-12-12 09:02)
PROC: 02100Z9 Bypass Coronary Artery, One Artery from Left Internal Mammary, Open Approach (ICD-10-PCS; 2017-12-12 09:02)
PROC: 0T9B70Z Drainage of Bladder with Drainage Device, Via Natural or Artificial Opening (ICD-10-PCS; 2017-12-15)
PROC: 30233N1 Transfusion of Nonautologous Red Blood Cells into Peripheral Vein, Percutaneous Approach (ICD-10-PCS; 2017-12-15)
DX: I21.09 ST elevation (STEMI) myocardial infarction involving other coronary artery of anterior wall (principal); I50.43 Acute on chronic combined systolic (congestive) and diastolic (congestive) heart failure; I47.2 Ventricular tachycardia; I11.0 Hypertensive heart disease with heart failure; D62 Acute posthemorrhagic anemia; I25.110 Atherosclerotic heart disease of native coronary artery with unstable angina pectoris; E78.5 Hyperlipidemia, unspecified; I25.5 Ischemic cardiomyopathy; R33.9 Retention of urine, unspecified; N36.5 Urethral false passage; R33.8 Other retention of urine; R19.7 Diarrhea, unspecified; Z95.5 Presence of coronary angioplasty implant and graft; Z79.82 Long term (current) use of aspirin
CPT/HCPCS: 33967; 36430; 71045; 76937; 80048; 80053; 80061; 81001; 82550; 82948; 83036; 83690; 83735; 84484; 85002; 85014; 85025; 85027; 85610; 85730; 86850; 86900; 86901; 86920; 92941; 93005; 93318; 93458; 94002; 94150; 94640; 94664; 94667; 94668; 99152; 99153; 99291; C1725; C1769; C1887; C1893; C9248; C9399; J0131; J0282; J0690; J1644; J1815; J1817; J1940; J2150; J2250; J2270; J2440; J2930; J3010; J3370; J3480; P9016; P9047; Q9967

== ENCOUNTER → 2018-01-01 | Outpatient (CLI) | payer MEDICARE, BC ==
[~2018-01-01] MED LIST changes: +AMIO200T PO; +ASPI-516 CHEW; -ASPI81 PO; -AVOD0.5C PO; +COMMODE 3-IN-11 MIS; +DEFIB EXTERNAL; +HYDR-3516 PO; +LIPI80TA PO; +LISI-519 PO; +METO25TA3 PO; +PANT40TA3 PO; +Simethicone Chew CHEW; -TAB-TAB PO; -TAMS0.4C67 PO; +TAMS5CAP PO; +THERM PO; +WALKER WHEELS/F1 MIS
[2018-01-01 10:36] LABS: AUTOMATED NEUTROPHIL # 6.7 TH/MM3 (1.8-7.7); BASOPHIL # 0.1 TH/MM3 (0-0.2); BASOPHIL % 0.8 % (0.0-2.0); EOSINOPHIL % 9.5 % (0.0-4.0); HEMATOCRIT 33.8 % (39.0-51.0); HEMOGLOBIN 11.3 GM/DL (13.0-17.0); LYMPH % 19.3 % (9.0-44.0); LYMPHOCYTE # 2.1 TH/MM3 (1.0-4.8); MEAN CELL VOLUME 91.4 FL (80.0-100.0); MEAN CORPUSCULAR HEMOGLOBIN 30.5 PG (27.0-34.0); MEAN CORPUSCULAR HGB CONC 33.3 % (32.0-36.0); MEAN PLATELET VOLUME 9.4 FL (7.0-11.0); MONO % 8.1 % (0.0-8.0); MONOCYTE # 0.9 TH/MM3 (0-0.9); NEUT % 62.3 % (16.0-70.0); PLATELET COUNT 369 TH/MM3 (150-450); RED BLOOD COUNT 3.69 MIL/MM3 (4.50-5.90); RED CELL DISTRIBUTION WIDTH 14.3 % (11.6-17.2); WHITE BLOOD COUNT 10.8 TH/MM3 (4.0-11.0)
[2018-01-01 12:06] LABS: BICARBONATE 23.4 MEQ/L (21.0-32.0); CALCIUM 8.5 MG/DL (8.5-10.1); CREATININE 1.93 MG/DL (0.60-1.30)
== END ==
LOC: PLAB 07:47
PROVIDERS: ATTEND Thoracic Surgery (Cardiothoracic Vascular Surgery)
DX: Z95.1 Presence of aortocoronary bypass graft (principal)
CPT/HCPCS: 36415; 80048; 85025